=== PATIENT | female | born 1940 | race Caucasian/White ===

== ENCOUNTER 2016-07-02 11:40 | Inpatient (IN) | payer MEDICARE ==
[2016-07-02 12:55] LABS: Hematocrit 40 % (35-47); Mean Corpuscular HGB Conc 33 g/dl (31-36); Mean Corpuscular Hemoglobin 30 pg (27-31); Mean Corpuscular Volume 92 fL (80-97); Mean Platelet Volume 8 um3 (7.4-10.4); Red Blood Count 4.32 10^6/ul (4.0-5.4); Red Cell Distribution Width 15 % (10.5-15); White Blood Count 5.8 10^3/ul (3.5-10.8)
--- NOTE | 2016-07-02 12:58 | RAD ---
HISTORY: Aspiration COMPARISONS: July 28, 2015 VIEWS: 2: Frontal dual-energy and lateral views of the chest. FINDINGS: CARDIOMEDIASTINAL SILHOUETTE: The cardiomediastinal silhouette is normal. NICHOLAS: The nicholas are normal. PLEURA: The costophrenic angles are sharp. No pleural abnormalities are noted. LUNG PARENCHYMA: There is minimal linear opacification of the left lung base ABDOMEN: The upper abdomen is clear. There is no subphrenic gas. BONES AND SOFT TISSUES: No bone or soft tissue abnormalities are noted. OTHER: None. IMPRESSION: MINIMAL LINEAR ATELECTASIS VERSUS PLEUROPARENCHYMAL SCARRING OF THE LEFT LUNG BASE.
[2016-07-02 13:13] LABS: BUN/Creatinine Ratio 20.3 (8-20); Calcium 10.6 mg/dL (8.6-10.3); EGFR African American 47.9 (>60); EGFR Non-African American 37.3 (>60); Potassium 4.4 mmol/L (3.5-5.0)
--- NOTE | 2016-07-02 14:26 | ED ---
GI/ HPI - HPI Summary HPI Summary: Patient presents for delayed evaluation of dysphagia. She had a scheduled botox injection for torticollis 2 weeks ago, but since then has been having difficulty swallowing solids and liquids. She has had inability to swallow solids since the day of injection - History of Current Complaint Chief Complaint: EDGeneral Time Seen by Provider: 07/02/16 11:56 Stated Complaint: UNABLE TO SWALLOW/SPEAK Hx Obtained From: Patient, Family/Center Director Lead Teacher - Onset/Duration: Started Weeks Ago Timing: Constant Severity: Mild Current Severity: Mild Pain Intensity: 0 - Allergy/Home Medications Allergies/Adverse Reactions: Allergies Allergy/AdvReac Type Severity Reaction Status Date / Time Sulfa Drugs Allergy Severe Hives Verified 11/02/13 06:28 Latex Allergy Rash Verified 11/02/13 06:28 Metoprolol Allergy extreme Verified 11/02/13 06:28 fatigue ENVIRONMENTAL Allergy Unknown Uncoded 11/02/13 06:28 Reaction Details PMH/Surg Hx/FS Hx/Imm Hx Endocrine/Hematology History: Reports: Hx Diabetes - TYPE 2, Hx Anemia - NOT BEING TREATED Denies: Hx Thyroid Disease Cardiovascular History: Reports: Hx Coronary Artery Disease - new onset 70% blockage 01/2013, Hx Hypercholesterolemia, Hx Hypertension, Hx Peripheral Vascular Disease Denies: Other Cardiovascular Problems/Disorders Respiratory History: Reports: Hx Asthma, Hx Chronic Obstructive Pulmonary Disease (COPD), Hx Seasonal Allergies, Hx Sleep Apnea GI History: Reports: Hx Gastroesophageal Reflux Disease - CONTROL WITH DIET, Hx Hiatal Hernia - MANY YEARS AGO, Other GI Disorders - HISTORY OF DIVERTICULITIS, NO PROBLEMS Denies: Hx Ulcer Musculoskeletal History: Reports: Hx Arthritis - GENERALIZED, Hx Bursitis - SHOULDERS, Hx Osteoporosis, Hx Tendonitis - HX IN BILATERAL ELBOWS, YEARS AGO Sensory History: Reports: Hx Cataracts - HENOK SURGERYS, Hx Contacts or Glasses - READING GLASSES Denies: Hx Hearing Aid Opthamlomology History: Reports: Hx Cataracts - HENOK SURGERYS, Hx Contacts or Glasses - READING GLASSES Neurological History: Reports: Hx Nerve Disease - NEUROPATHY Denies: Other Neuro Impairments/Disorders Psychiatric History: Reports: Hx Anxiety - 1999, OK NOW, Hx Depression - 2002 - NO PROBLEMS SINCE - Cancer History Hx Chemotherapy: No Hx Radiation Therapy: No - Surgical History Surgery Procedure, Year, and Place: 1989Hammer Toe Surgery Right Foot 1997 ; Right Knee Surgery, 2010, [facility]; Fractured Left Shoulder, 1988 ; Hysterectomy, 1993 ; Breast ReductioN, 1985; Right Knee ArthroscopyX2, 1993, [place] [facility] [place] surgery [place] 29 2013 lid reduction.; Right Endartarectomy 2004, [place] ; VaricoseVein Surgery Right Leg 2006, [place];TOTAL RIGHT KNEE, 2010[facility] [place] Right TKR, [facility] [place] Hx Anesthesia Reactions: Yes - HARD TO WAKE UP Infectious Disease History: No Infectious Disease History: Denies: Hx Clostridium Difficile, Hx Hepatitis, Hx Human Immunodeficiency Virus (HIV), Hx of Known/Suspected MRSA, Hx Shingles, Hx Tuberculosis, Hx Known/ Suspected VRE, Hx Known/Suspected VRSA, History Other Infectious Disease, Traveled Outside the [place] in Last 30 Days - Social History Alcohol Use: None Substance Use Type: Reports: None Smoking Status (MU): Unknown if Ever Smoked Review of Systems All Other Systems Reviewed And Are Negative: Yes Physical Exam Vital Signs On Initial Exam: Initial Vitals Temp Pulse Resp BP Pulse Ox 98.8 F 76 16 142/57 99 07/02/16 11:43 07/02/16 11:43 07/02/16 11:43 07/02/16 11:43 07/02/16 11:43 - [place] Coma Scale Coma Scale Total: 15 Diagnostics - Vital Signs Vital Signs Temp Pulse Resp BP Pulse Ox 07/02/16 11:43 98.8 F 76 16 142/57 99 - Laboratory Lab Results: Lab Results 07/02/16 07/02/16 Range/Units 12:15 12:15 WBC 5.8 (3.5-10.8) 10^3/ul RBC 4.32 (4.0-5.4) 10^6/ul Hgb 13.0 (12.0-16.0) g/dl Hct 40 (35-47) % MCV 92 (80-97) fL MCH 30 (27-31) pg MCHC 33 (31-36) g/dl RDW 15 (10.5-15) % Plt Count 156 (150-450) 10^3/ul MPV 8 (7.4-10.4) um3 Sodium 138 (133-145) mmol/L Potassium 4.4 (3.5-5.0) mmol/L Chloride 104 (101-111) mmol/L Carbon Dioxide 24 (22-32) mmol/L Anion Gap 10 (2-11) mmol/L BUN 28 H (6-24) mg/dL Creatinine 1.38 H (0.51-0.95) mg/dL Est GFR ( Amer) 47.9 (>60) Est GFR (Non-Af Amer) 37.3 (>60) BUN/Creatinine Ratio 20.3 H (8-20) Glucose 125 H (70-100) mg/dL Calcium 10.6 H (8.6-10.3) mg/dL Result Diagrams: 07/02/16 12:15 07/02/16 12:15 Lab Statement: Any lab studies that have been ordered have been reviewed, and results considered in the medical decision making process. GIGU Course/Dx - Diagnoses Provider Diagnoses: DYSPHAGIA SECONDARY TO BOTOX Discharge - Discharge Plan Condition: Fair Disposition: ADMITTED TO [facility]
[2016-07-02] MEDS ORDERED: Albuterol HFA INHALER* 8 gm MDI INH PRN (15:53)
[2016-07-02] MEDS ORDERED: Dextrose 50% Syringe 50 ML* 25 GM/50 ML SYRINGE IV PUSH PRN (15:54)
[2016-07-02] MEDS: NS 0.9% 1000 ML* 1,000 ML IV SCH (18:21)
--- NOTE | 2016-07-02 18:33 | PN ---
Progress Note - Progress Note Note: Ms. Kimball is very reticent to have a NG tube placed. Plan to assess swallow function in AM. If patient able to tolerate adequately to maintain nutrition and hydration may be able to avoid feeding tube. Nutrition consult also placed.
--- NOTE | 2016-07-02 20:32 | HP ---
HISTORY AND PHYSICAL: DATE OF ADMISSION: 07/02/16 PRIMARY CARE PHYSICIAN: Dr. New. PROVIDER: Dr. Jose Ratliff, . ATTENDING PHYSICIAN: Jasmin Hernandez MD *(dictation provided by Ramonita Simon NP) CHIEF COMPLAINT: Difficulty swallowing. HISTORY OF PRESENT ILLNESS: Ms. Kimball is a 76-year-old female with past medical history of dystonia with frequent Botox injections with complications of mild symptoms of difficulty swallowing who presents today to the hospital with concern for significant difficulty swallowing and unable to tolerate solid foods. The patient also has a history of diabetes, hypertension, and asthma. She states that she had her last Botox injection with Dr. Ratliff in [place] ( phone number ) on 06/21/16. She has been having difficulty swallowing for over a week. She is still able to swallow liquids but when she tries to swallow solids, she chokes and has severe coughing and retching spells. She has been able to drink some nutritional supplements over the past couple of days. Family spoke with Dr. Ratliff or her medical assistant on Saturday and they recommended that she wait to see how the things would unfold but were recommended to come to the emergency room if it did not improve quickly. They spoke again with Dr. Ratliff' office today and were recommended to come to the emergency room for evaluation. The patient denies any other complaints including chest pain, shortness of breath, nausea, or abdominal pain. In the emergency room, Ms. Kimball has a creatinine, which is mildly elevated from baseline. She has stable vital signs, but based on her difficulty swallowing and concern for dehydration and need for supplemental nutrition, Hospital Medicine was called regarding admission. PAST MEDICAL HISTORY: 1. Dystonia with multiple Botox injections. 2. History of difficulty swallowing secondary to Botox, which has been mild. 3. Type 2 diabetes, non-insulin dependent. 4. Hypertension. 5. Asthma. 6. History of carotid artery endarterectomy. 7. Hyperlipidemia. PAST SURGICAL HISTORY: 1. Reduction mammoplasty, 1985. 2. Hysterectomy partial, 1993. 3. Arthroscopic knee surgery, 1993 and February 2006. 4. Fractured left humerus, 1988. 5. Hammertoe right second toe December,. 6. Endarterectomy right, May 2004. 7. Varicose vein surgery, May 2006. 8. Cataract removal bilaterally in August and September 2010 as well as LASIK and laser procedures. 9. Right total knee replacement, January 2011. 10. Trigger finger surgery right hand, July 2012. 11. Bilateral upper blepharoplasty repair, June 2013. MEDICATIONS: 1. Diclofenac 50 mg p.o. daily. 2. Isosorbide ER 90 mg p.o. daily. 3. Multivitamin mineral 1 tablet p.o. daily. 4. Nitroglycerin p.r.n. 5. Sitagliptin 100 mg p.o. q.a.m. 6. Albuterol 2 puffs inhale q.4 hours p.r.n. 7. Aspirin 81 mg p.o. daily. 8. Atenolol 25 mg p.o. every other day. 9. Oxybutynin 10 mg p.o. at bedtime. ALLERGIES: SULFA, LATEX, METOPROLOL. FAMILY HISTORY: The patient reports her mother had multiple strokes, related to heart attack at age 67. Father had cancer of blood, at age 87. REVIEW OF SYSTEMS: A 14-point review of systems completed with Ms. Kimball and all those not mentioned above were negative. PHYSICAL EXAMINATION GENERAL: Ms. Kimball is sitting up in the bed. She is in no acute distress. VITAL SIGNS: Temperature 98.8, heart rate 74, respiratory rate 16, O2 saturation is 97% on room air, blood pressure 141/43. HEART: S1 and S2. No murmur, rubs, or gallop. Regular. LUNGS: Clear to auscultation bilaterally with no accessory muscle use and good aeration. ABDOMEN: Soft, nontender with bowel sounds positive x4. EXTREMITIES: No cyanosis or edema. SKIN: Intact. NEUROLOGIC: She is alert and oriented x3. She moves all extremities equally. There is no facial asymmetry or focal weakness. Extraocular movements are intact. LABORATORY DATA/DIAGNOSTIC STUDIES: Sodium 138, potassium 4.4, chloride 104, serum bicarb 24, BUN 28, creatinine 1.38, glucose 125. WBC 5.8, hemoglobin 13.0 , hematocrit 40, platelet count 156. Chest x-ray was read as follows: "Minimal linear atelectasis versus pleural parenchymal scarring of the left lung base." ASSESSMENT: Ms. Kimball is a 76-year-old female with a past medical history of dystonia with multiple Botox injections in the past with ongoing mild symptoms of dysphagia, who presents to the hospital with concern for severe dysphagia and inability to tolerate solid oral intake as well as weight loss. In addition , she has a history of diabetes and hypertension and asthma. PLAN: Plans are for inpatient admission as I expect the length of stay to be greater than 2 days for the following. 1. Dysphagia. I did review the case with Dr. Ratliff' medical assistant over the phone. The medical assistant read a note from Dr. Ratliff, which stated that she would recommend that the patient be admitted to the hospital and started on intravenous fluids and supplemental nutrition through a feeding tube. A feeding tube will be placed. I have asked the clamp operator to provide nutrition supplement recommendations. I have also spoken with Speech Therapy and they will be seeing the patient tomorrow and intermittently to assess swallow function. 2. Type 2 diabetes. The patient had blood glucoses q.a.c. with Lispro sliding scale insulin. We will hold her Januvia. 3. Hypertension. Continue atenolol. We will hold isosorbide as it is an extended release tab, we can add other non-extended tablet or other agent as needed if her blood pressure is elevated. It is currently well controlled. 4. DVT prophylaxis with heparin subcu. 5. Disposition to medical floor. TIME SPENT: Approximately 60 minutes was spent on admission of this patient; more than half time spent with her at the bedside reviewing the events leading up to this hospitalization, performing the physical examination, and reviewing the plan of care. RAMONITA SIMON NP CC: Dr. New; Dr. Jose Ratliff, * [id number]/[facility] #: [id number] [facility]ENT[facility]st[facility]
[2016-07-02] MEDS: Insulin LISPRO* 1 UNITS UNIT SUBCUT SCH (20:58)
[2016-07-02] MEDS ORDERED: Oxybutynin TAB* 5 MG PO SCH (21:00)
[2016-07-02] MEDS ORDERED: Aspirin EC Low Dose* 81 MG TAB.EC ONE (22:27)
[2016-07-02] MEDS: Aspirin EC Low Dose* 81 MG TAB.EC PO SCH (22:33)
[2016-07-02] MEDS: Heparin VIAL(*) 5000 UNITS/ML VIAL (FIVE THOUSAND) SUBCUT SCH (23:12)
[2016-07-02] MEDS ORDERED: Atenolol TAB* 25 MG ONE (23:33)
[2016-07-03] MEDS: FLUTICASONE 100 MCG INH SCH ×2 (00:01→10:20)
[2016-07-03] MEDS: NS 0.9% 1000 ML* 1,000 ML IV SCH (04:58)
[2016-07-03 05:32] LABS: BUN/Creatinine Ratio 19.3 (8-20); Calcium 9.8 mg/dL (8.6-10.3); EGFR African American 62.9 (>60); EGFR Non-African American 48.9 (>60); Potassium 4.1 mmol/L (3.5-5.0)
[2016-07-03] MEDS: Heparin VIAL(*) 5000 UNITS/ML VIAL (FIVE THOUSAND) SUBCUT SCH ×3 (06:05→23:04)
[2016-07-03] MEDS: Insulin LISPRO* 1 UNITS UNIT SUBCUT SCH ×2 (07:41→11:45)
[2016-07-03] MEDS ORDERED: Canagliflozin (NF) 100 MG TAB PO SCH (09:00)
[2016-07-03] MEDS ORDERED: ROSUVASTATIN 20 MG PO SCH (09:00)
[2016-07-03] MEDS ORDERED: Losartan TAB* 25 MG PO SCH (09:00)
[2016-07-03] MEDS ORDERED: Losartan TAB* 25 MG ONE (10:12)
[2016-07-03] MEDS ORDERED: PTO: Canagliflozin (NF) 100 MG TAB PO SCH (13:00)
--- NOTE | 2016-07-03 15:19 | RAD ---
HISTORY: Dysphagia COMPARISONS: None TECHNIQUE: A videofluoroscopic evaluation of swallow was performed in conjunction with speech therapy. Barium laced foods and liquids of varying consistency were administered under fluoroscopic observation. Total fluoroscopy time is 2.1 minutes. FINDINGS: ORAL PHASE: There is normal transfer and initiation PHARYNGEAL PHASE: There is normal elevation; however, there is incomplete relaxation of the cricopharyngeus with pooling of contrast in the hypopharynx. There is transient penetration without appreciable aspiration ASPIRATION/PENETRATION: As noted above, there is penetration without aspiration OTHER FINDINGS: None. IMPRESSION: INCOMPLETE RELAXATION OF THE CRICOPHARYNGEUS WITH POOLING OF CONTRAST IN THE HYPOPHARYNX LEADING TO PENETRATION WITHOUT ASPIRATION. PLEASE SEE THE SPEECH THERAPIST REPORT FOR FURTHER INFORMATION CPT II Codes: 6045F
[2016-07-03] MEDS ORDERED: Insulin LISPRO* 1 UNITS UNIT SUBCUT SCH ×2 (16:00→18:00)
--- NOTE | 2016-07-03 16:02 | PN ---
Subjective Date of Service: 07/03/16 Interval History: Pt is feeling ok. She continues to have intermittent difficulty swallowing. She did ok with thin liquids per her interpretation. She denies any pain. No SOB. Objective Active Medications: Albuterol (Ventolin Hfa Inhaler*) 2 puff INH Q4H PRN PRN Reason: DYSPNEA Aspirin (Aspirin Ec Low Dose*) 81 mg PO BEDTIME [facility] Last Admin: 07/02/16 22:33 Dose: 81 mg Dextrose (D50w Syringe 50 Ml*) 12.5 gm IV PUSH .FOR FS < 60 - SS PRN PRN Reason: FS < 60 Fluticasone Propionate (Flovent Diskus 100 Mcg(Nf)) 1 puff INH BID [facility] Last Admin: 07/03/16 10:20 Dose: 1 puff Heparin Sodium (Porcine) (Heparin Vial(*)) 5,000 units SUBCUT Q8HR [facility] Last Admin: 07/03/16 13:39 Dose: Not Given Dextrose/Sodium Chloride (D5w 1/2 Ns 1000 Ml Bag*) 1,000 mls @ 75 mls/hr IV PER RATE [facility] Insulin Human Lispro (Humalog*) 0 units SUBCUT Q6H [facility] PRN Reason: Protocol Vital Signs 07/02/16 07/02/16 07/02/16 16:54 19:15 20:21 Temperature 97.3 F 97.5 F Pulse Rate 68 66 Respiratory 16 16 14 Rate Blood Pressure 144/55 149/50 (mmHg) O2 Sat by Pulse 98 98 Oximetry 07/02/16 07/02/16 07/03/16 21:00 23:34 04:58 Temperature 97.6 F 98.1 F Pulse Rate 71 62 Respiratory 16 16 16 Rate Blood Pressure 138/53 145/59 (mmHg) O2 Sat by Pulse 98 97 Oximetry 07/03/16 07/03/16 07/03/16 07:12 08:00 09:56 Temperature 98.4 F 97.7 F Pulse Rate 64 61 Respiratory 18 18 16 Rate Blood Pressure 141/57 123/41 (mmHg) O2 Sat by Pulse 96 96 Oximetry Oxygen Devices in Use Now: None Appearance: Elderly female sitting on the edge of the bed, NAD Eyes: No Scleral Icterus Ears/Nose/Mouth/Throat: Mucous Membranes Moist, - - + hoarse voice Respiratory: Symmetrical Chest Expansion and Respiratory Effort, Clear to Auscultation Cardiovascular: NL Sounds; No Murmurs; No JVD, RRR, No Edema Abdominal: NL Sounds; No Tenderness; No Distention Extremities: No Clubbing, Cyanosis Skin: No Rash or Ulcers, No Nodules or Sclerosis Neurological: Alert and Oriented x 3 Result Diagrams: 07/02/16 12:15 07/03/16 04:50 Additional Lab and Data: Lab Results 07/02/16 07/02/16 Range/Units 12:15 12:15 WBC 5.8 (3.5-10.8) 10^3/ul RBC 4.32 (4.0-5.4) 10^6/ul Hgb 13.0 (12.0-16.0) g/dl Hct 40 (35-47) % MCV 92 (80-97) fL MCH 30 (27-31) pg MCHC 33 (31-36) g/dl RDW 15 (10.5-15) % Plt Count 156 (150-450) 10^3/ul MPV 8 (7.4-10.4) um3 Sodium 138 (133-145) mmol/L Potassium 4.4 (3.5-5.0) mmol/L Chloride 104 (101-111) mmol/L Carbon Dioxide 24 (22-32) mmol/L Anion Gap 10 (2-11) mmol/L BUN 28 H (6-24) mg/dL Creatinine 1.38 H (0.51-0.95) mg/dL Est GFR ( Amer) 47.9 (>60) Est GFR (Non-Af Amer) 37.3 (>60) BUN/Creatinine Ratio 20.3 H (8-20) Glucose 125 H (70-100) mg/dL Calcium 10.6 H (8.6-10.3) mg/dL Assess/Plan/Problems-Billing Ms Kimball is a 76 yo F who has a h/o cervical dystonia for 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 - Patient Problems (1) Dysphagia Current Visit: Yes Status: Acute Code(s): R13.10 - DYSPHAGIA, UNSPECIFIED SNOMED Code(s): 05465803 Comment: Secondary to botox injection. She states she frequently gets a milder form of this complication but this is the worst it has been. On video fluoroscopic swallow the patient has pooling of thin liquids and purees with occasionally penetration into the airway. Will make the patient NPO for now. Will likely reassess her swallow function in 2 days. For now continue IVF-start D5 1/2 NS at 75ml/hr. Will hold off on feeding tube for now but if she has no improvement in the next 1-[address] an NG tube. (2) Hoarseness of voice Current Visit: Yes Status: Acute Comment: Likely secondary to botox injection. If no improvement in the next few days will ask for ENT evaluation. (3) Type II diabetes mellitus Current Visit: Yes Status: Acute Comment: Sugars have been under excellent control. Will stop oral meds as she is now NPO and continue with a lispro sliding scale. (4) HTN (hypertension) Current Visit: Yes Status: Acute Code(s): I10 - ESSENTIAL (PRIMARY) HYPERTENSION SNOMED Code(s): 44975063 Comment: BP is under good control. Continue to monitor off her usual medications as she is NPO. (5) DVT prophylaxis Current Visit: Yes Status: Acute Code(s): NEW9738 - SNOMED Code(s): 645278727 Comment: SQ heparin (6) Full code status Current Visit: Yes Status: Acute Code(s): Z78.9 - OTHER SPECIFIED HEALTH STATUS SNOMED Code(s): 262764767
[2016-07-03] MEDS ORDERED: Dextrose 50% Syringe 50 ML* 25 GM/50 ML SYRINGE IV PUSH PRN (19:21)
[2016-07-03] MEDS: D5W 1/2 NS 1000 ML BAG* 1,000 ML IV SCH (19:56)
[2016-07-03] MEDS: Aspirin EC Low Dose* 81 MG TAB.EC PO SCH (19:56)
[2016-07-04] MEDS: FLUTICASONE 100 MCG INH SCH ×3 (02:07→21:19)
[2016-07-04] MEDS: Insulin LISPRO* 1 UNITS UNIT SUBCUT SCH ×3 (02:07→20:48)
[2016-07-04] MEDS: Heparin VIAL(*) 5000 UNITS/ML VIAL (FIVE THOUSAND) SUBCUT SCH ×3 (06:13→21:19)
[2016-07-04] MEDS ORDERED: Atenolol TAB* 25 MG PO SCH (09:00)
--- NOTE | 2016-07-04 10:26 | PN ---
Subjective Date of Service: 07/04/16 Interval History: Pt is feeling well. She states she thinks her voice is improved some today. She has not tried swallowing anything since yesterday. She noted that she had some blood when she blew her nose and she coughed up some mucous with a scant amount of blood in it. Objective Active Medications: Albuterol (Ventolin Hfa Inhaler*) 2 puff INH Q4H PRN PRN Reason: DYSPNEA Dextrose (D50w Syringe 50 Ml*) 12.5 gm IV PUSH .FOR FS < 60 - SS PRN PRN Reason: FS < 60 Fluticasone Propionate (Flovent Diskus 100 Mcg(Nf)) 1 puff INH BID [facility] Last Admin: 07/04/16 09:41 Dose: 1 puff Heparin Sodium (Porcine) (Heparin Vial(*)) 5,000 units SUBCUT Q8HR [facility] Last Admin: 07/04/16 06:13 Dose: Not Given Dextrose/Sodium Chloride (D5w 1/2 Ns 1000 Ml Bag*) 1,000 mls @ 75 mls/hr IV PER RATE [facility] Last Admin: 07/03/16 19:56 Dose: 75 mls/hr Insulin Human Lispro (Humalog*) 0 units SUBCUT Q6HR [facility] PRN Reason: Protocol Last Admin: 07/04/16 06:13 Dose: Not Given Vital Signs 07/03/16 07/03/16 07/03/16 15:30 20:00 23:40 Temperature 97.8 F 97.4 F Pulse Rate 59 63 Respiratory 16 18 18 Rate Blood Pressure 148/53 147/50 (mmHg) O2 Sat by Pulse 97 97 Oximetry 07/04/16 07:28 Temperature 97.9 F Pulse Rate 62 Respiratory 18 Rate Blood Pressure 145/53 (mmHg) O2 Sat by Pulse 95 Oximetry Oxygen Devices in Use Now: None Appearance: Elderly female sitting on the edge of the bed, NAD Eyes: No Scleral Icterus Ears/Nose/Mouth/Throat: Mucous Membranes Moist, - - voice remains hoarse but perhaps slightly better Respiratory: Symmetrical Chest Expansion and Respiratory Effort, Clear to Auscultation Cardiovascular: NL Sounds; No Murmurs; No JVD, RRR, No Edema Abdominal: NL Sounds; No Tenderness; No Distention Extremities: No Clubbing, Cyanosis Skin: No Rash or Ulcers, No Nodules or Sclerosis Neurological: Alert and Oriented x 3 Result Diagrams: 07/02/16 12:15 07/03/16 04:50 Additional Lab and Data: Lab Results 07/02/16 07/02/16 Range/Units 12:15 12:15 WBC 5.8 (3.5-10.8) 10^3/ul RBC 4.32 (4.0-5.4) 10^6/ul Hgb 13.0 (12.0-16.0) g/dl Hct 40 (35-47) % MCV 92 (80-97) fL MCH 30 (27-31) pg MCHC 33 (31-36) g/dl RDW 15 (10.5-15) % Plt Count 156 (150-450) 10^3/ul MPV 8 (7.4-10.4) um3 Sodium 138 (133-145) mmol/L Potassium 4.4 (3.5-5.0) mmol/L Chloride 104 (101-111) mmol/L Carbon Dioxide 24 (22-32) mmol/L Anion Gap 10 (2-11) mmol/L BUN 28 H (6-24) mg/dL Creatinine 1.38 H (0.51-0.95) mg/dL Est GFR ( Amer) 47.9 (>60) Est GFR (Non-Af Amer) 37.3 (>60) BUN/Creatinine Ratio 20.3 H (8-20) Glucose 125 H (70-100) mg/dL Calcium 10.6 H (8.6-10.3) mg/dL Assess/Plan/Problems-Billing Ms Kimball is a 76 yo F who has a h/o cervical dystonia for 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 - Patient Problems (1) Dysphagia Current Visit: Yes Status: Acute Code(s): R13.10 - DYSPHAGIA, UNSPECIFIED SNOMED Code(s): 14049079 Comment: Secondary to botox injection. She has not tried swallowing anything recently. Plan for repeat video fluoroscopic swallow study tomorrow. Continue D5 1/2NS. If no improvement on her swallow function test tomorrow will discuss placing NG tube vs possibly TPN. (2) Hoarseness of voice Current Visit: Yes Status: Acute Comment: Likely secondary to botox injection. Pt believes her voice quality has improved some. Will continue to monitor and if no further improvement will ask for ENT eval tomorrow. (3) Type II diabetes mellitus Current Visit: Yes Status: Acute Comment: Sugars have been under excellent control despite being on D5 1/2NS. Will change finger sticks to q12hr. (4) HTN (hypertension) Current Visit: Yes Status: Acute Code(s): I10 - ESSENTIAL (PRIMARY) HYPERTENSION SNOMED Code(s): 16492954 Comment: BP is mildly elevated off her usual medications. Continue to follow. (5) DVT prophylaxis Current Visit: Yes Status: Acute Code(s): WFD5814 - SNOMED Code(s): 917696257 Comment: SQ heparin (6) Full code status Current Visit: Yes Status: Acute Code(s): Z78.9 - OTHER SPECIFIED HEALTH STATUS SNOMED Code(s): 837758735
[2016-07-04] MEDS: D5W 1/2 NS 1000 ML BAG* 1,000 ML IV SCH (11:27)
[2016-07-05] MEDS: D5W 1/2 NS 1000 ML BAG* 1,000 ML IV SCH ×2 (03:00→20:55)
[2016-07-05] MEDS: Heparin VIAL(*) 5000 UNITS/ML VIAL (FIVE THOUSAND) SUBCUT SCH ×3 (05:13→21:04)
[2016-07-05] MEDS: FLUTICASONE 100 MCG INH SCH (08:40)
[2016-07-05] MEDS: Insulin LISPRO* 1 UNITS UNIT SUBCUT SCH ×2 (08:43→21:01)
--- NOTE | 2016-07-05 13:35 | RAD ---
HISTORY: Aspiration, dysphagia, follow-up COMPARISONS: July 03, 2015 TECHNIQUE: A videofluoroscopic evaluation of swallow was performed in conjunction with speech therapy. Barium laced foods and liquids of varying consistency were administered under fluoroscopic observation. Total fluoroscopy time is 0.3 minutes. FINDINGS: ORAL PHASE: There is normal transfer in initiation. PHARYNGEAL PHASE: As noted on the previous examination, there is incomplete relaxation of the cricopharyngeus with pooling of contrast in the hypopharynx. On the current examination, there is aspiration from the nipple residual in the hypopharynx ASPIRATION/PENETRATION: As noted above, there is aspiration from the pooled residual in the hypopharynx. OTHER FINDINGS: None. IMPRESSION: AGAIN NOTED IS INCOMPLETE RELAXATION OF THE CRICOPHARYNGEUS, WITH ASPIRATION OF POOLED RESIDUAL IN THE HYPOPHARYNX.. PLEASE SEE THE SPEECH THERAPIST REPORT FOR FURTHER INFORMATION CPT II Codes: 6045F
--- NOTE | 2016-07-05 15:11 | PN ---
Subjective Date of Service: 07/05/16 Interval History: Pt is feeling well but states she knew she failed the swallow eval today. She states she coughed up some yellowish sputum this AM but nothing since. She continues to have mild blood when she blows her nose. Objective Active Medications: Albuterol (Ventolin Hfa Inhaler*) 2 puff INH Q4H PRN PRN Reason: DYSPNEA Aspirin (Aspirin Low Dose Tab*) 81 mg NG TUBE DAILY [facility] Atenolol (Tenormin Tab*) 25 mg NG TUBE EVERY OTHER DAY [facility] Atorvastatin Calcium (Lipitor*) 20 mg NG TUBE 2100 [facility] Dextrose (D50w Syringe 50 Ml*) 12.5 gm IV PUSH .FOR FS < 60 - SS PRN PRN Reason: FS < 60 Fluticasone Propionate (Flovent Diskus 100 Mcg(Nf)) 1 puff INH BID [facility] Last Admin: 07/05/16 08:40 Dose: 1 puff Heparin Sodium (Porcine) (Heparin Vial(*)) 5,000 units SUBCUT Q8HR [facility] Last Admin: 07/05/16 13:31 Dose: Not Given Dextrose/Sodium Chloride (D5w 1/2 Ns 1000 Ml Bag*) 1,000 mls @ 75 mls/hr IV PER RATE [facility] Last Admin: 07/05/16 03:00 Dose: 75 mls/hr Insulin Human Lispro (Humalog*) 0 units SUBCUT BID [facility] PRN Reason: Protocol Last Admin: 07/05/16 08:43 Dose: Not Given Losartan Potassium (Cozaar Tab*) 12.5 mg NG TUBE DAILY [facility] Oxybutynin Chloride (Ditropan Tab*) 10 mg NG TUBE BEDTIME [facility] Phenol/Menthol (Chloroseptic Throat [place]*) 4 spray MT Q4H PRN PRN Reason: SORE THROAT Vital Signs 07/04/16 07/04/16 07/04/16 15:25 20:19 23:26 Temperature 97.6 F 98.1 F Pulse Rate 68 64 Respiratory 16 18 18 Rate Blood Pressure 138/72 146/61 (mmHg) O2 Sat by Pulse 98 98 Oximetry 07/05/16 07/05/16 07:17 08:00 Temperature 97.9 F Pulse Rate 67 Respiratory 16 18 Rate Blood Pressure 148/67 (mmHg) O2 Sat by Pulse 95 Oximetry Oxygen Devices in Use Now: None Appearance: Elderly female sitting up on the edge of the bed, NAD Eyes: No Scleral Icterus Ears/Nose/Mouth/Throat: Mucous Membranes Moist Respiratory: Symmetrical Chest Expansion and Respiratory Effort, Clear to Auscultation Cardiovascular: NL Sounds; No Murmurs; No JVD, RRR, No Edema Abdominal: NL Sounds; No Tenderness; No Distention Extremities: No Clubbing, Cyanosis Skin: No Rash or Ulcers, No Nodules or Sclerosis Neurological: Alert and Oriented x 3 Result Diagrams: 07/02/16 12:15 07/03/16 04:50 Additional Lab and Data: Lab Results 07/02/16 07/02/16 Range/Units 12:15 12:15 WBC 5.8 (3.5-10.8) 10^3/ul RBC 4.32 (4.0-5.4) 10^6/ul Hgb 13.0 (12.0-16.0) g/dl Hct 40 (35-47) % MCV 92 (80-97) fL MCH 30 (27-31) pg MCHC 33 (31-36) g/dl RDW 15 (10.5-15) % Plt Count 156 (150-450) 10^3/ul MPV 8 (7.4-10.4) um3 Sodium 138 (133-145) mmol/L Potassium 4.4 (3.5-5.0) mmol/L Chloride 104 (101-111) mmol/L Carbon Dioxide 24 (22-32) mmol/L Anion Gap 10 (2-11) mmol/L BUN 28 H (6-24) mg/dL Creatinine 1.38 H (0.51-0.95) mg/dL Est GFR ( Amer) 47.9 (>60) Est GFR (Non-Af Amer) 37.3 (>60) BUN/Creatinine Ratio 20.3 H (8-20) Glucose 125 H (70-100) mg/dL Calcium 10.6 H (8.6-10.3) mg/dL Assess/Plan/Problems-Billing Ms Kimball is a 76 yo F who has a h/o cervical dystonia for 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 - Patient Problems (1) Dysphagia Current Visit: Yes Status: Acute Code(s): R13.10 - DYSPHAGIA, UNSPECIFIED SNOMED Code(s): 55282816 Comment: Secondary to botox injection. She failed the swallow again today. No improvement at all today. I have placed NG tube so she can receive nutrition. I have ordered glucerna to start at 20ml/hr. Will touch base with ENT. (2) Hoarseness of voice Current Visit: Yes Status: Acute Comment: Likely secondary to botox injection. Pt's voice quality is improved today but not completely normal. Will touch base with ENT. (3) Type II diabetes mellitus Current Visit: Yes Status: Acute Comment: Sugars are under good control. Continue lispro Q12hr for elevated sugars. Will need to monitor closely while she is on glucerna. (4) HTN (hypertension) Current Visit: Yes Status: Acute Code(s): I10 - ESSENTIAL (PRIMARY) HYPERTENSION SNOMED Code(s): 82356000 Comment: Resume home medications that can go through the NG tube. (5) DVT prophylaxis Current Visit: Yes Status: Acute Code(s): CRC8285 - SNOMED Code(s): 002770865 Comment: SQ heparin (pt has been refusing but she is up and ambulating). (6) Full code status Current Visit: Yes Status: Acute Code(s): Z78.9 - OTHER SPECIFIED HEALTH STATUS SNOMED Code(s): 625985553
--- NOTE | 2016-07-05 15:26 | RAD ---
Indication: Cardiovascular disease, chronic obstructive pulmonary disease. Dysphagia. Comparison: July 02, 2016 Technique: Upright AP 1436 hours Report: Nasogastric tube tip at level of gastric body directed distal. Clear lungs and pleural spaces. The heart, pulmonary vasculature, and mediastinal contours are unremarkable. IMPRESSION: Nasogastric tube tip at level of gastric body directed distal.
[2016-07-05] MEDS: Aspirin Low Dose CHEW TAB* 81 MG NG TUBE SCH (16:28)
[2016-07-05] MEDS: LOSARTAN 25 MG NG TUBE SCH (16:28)
[2016-07-05] MEDS ORDERED: OXYBUTYNIN 5 MG NG TUBE SCH (21:00)
[2016-07-05] MEDS: Atorvastatin* 20 MG TAB NG TUBE SCH (21:33)
[2016-07-05] MEDS ORDERED: Ondansetron INJ* 2 MG/ML VIAL IV PRN (21:47)
[2016-07-06] MEDS: Heparin VIAL(*) 5000 UNITS/ML VIAL (FIVE THOUSAND) SUBCUT SCH ×3 (05:44→21:29)
[2016-07-06] MEDS: FLUTICASONE 100 MCG INH SCH ×2 (05:44→10:37)
[2016-07-06 06:40] LABS: BUN/Creatinine Ratio 11.4 (8-20); Calcium 10.1 mg/dL (8.6-10.3); EGFR African American 65.7 (>60); EGFR Non-African American 51.1 (>60)
[2016-07-06 07:24] LABS: Potassium 3.8 mmol/L (3.5-5.0)
--- NOTE | 2016-07-06 07:24 | PN ---
Subjective Date of Service: 07/06/16 Interval History: Pt is feeling ok. She states last night she had a wave of nausea and thought she was going to vomit but she didn't. She notes that her nose has been "dripping" quite a bit. She denies any pain associated with the NG tube. Objective Active Medications: Albuterol (Ventolin Hfa Inhaler*) 2 puff INH Q4H PRN PRN Reason: DYSPNEA Aspirin (Aspirin Low Dose Tab*) 81 mg NG TUBE DAILY [facility] Last Admin: 07/05/16 16:28 Dose: 81 mg Atenolol (Tenormin Tab*) 25 mg NG TUBE EVERY OTHER DAY [facility] Atorvastatin Calcium (Lipitor*) 20 mg NG TUBE 2100 [facility] Last Admin: 07/05/16 21:33 Dose: 20 mg Dextrose (D50w Syringe 50 Ml*) 12.5 gm IV PUSH .FOR FS < 60 - SS PRN PRN Reason: FS < 60 Fluticasone Propionate (Flovent Diskus 100 Mcg(Nf)) 1 puff INH BID [facility] Last Admin: 07/06/16 05:44 Dose: Not Given Heparin Sodium (Porcine) (Heparin Vial(*)) 5,000 units SUBCUT Q8HR [facility] Last Admin: 07/06/16 05:44 Dose: Not Given Insulin Human Lispro (Humalog*) 0 units SUBCUT BID [facility] PRN Reason: Protocol Last Admin: 07/05/16 21:01 Dose: Not Given Losartan Potassium (Cozaar Tab*) 12.5 mg NG TUBE DAILY [facility] Last Admin: 07/05/16 16:28 Dose: 12.5 mg Ondansetron HCl (Zofran Inj*) 4 mg IV Q6H PRN PRN Reason: NAUSEA Oxybutynin Chloride (Ditropan Tab*) 10 mg NG TUBE BEDTIME [facility] Last Admin: 07/05/16 21:33 Dose: 10 mg Phenol/Menthol (Chloroseptic Throat [place]*) 4 spray MT Q4H PRN PRN Reason: SORE THROAT Vital Signs 07/05/16 07/05/16 07/05/16 08:00 13:45 20:00 Temperature 98.9 F Pulse Rate 65 Respiratory 18 15 16 Rate Blood Pressure 136/74 (mmHg) O2 Sat by Pulse 98 Oximetry 07/05/16 23:28 Temperature 97.9 F Pulse Rate 74 Respiratory 16 Rate Blood Pressure 143/55 (mmHg) O2 Sat by Pulse 97 Oximetry Oxygen Devices in Use Now: None Appearance: Elderly female sitting on the edge of the bed, NAD Eyes: No Scleral Icterus Ears/Nose/Mouth/Throat: Mucous Membranes Moist, - - NG tube in place Respiratory: Symmetrical Chest Expansion and Respiratory Effort, Clear to Auscultation Cardiovascular: NL Sounds; No Murmurs; No JVD, RRR, No Edema Abdominal: NL Sounds; No Tenderness; No Distention Extremities: No Clubbing, Cyanosis Skin: No Rash or Ulcers, No Nodules or Sclerosis Neurological: Alert and Oriented x 3 Result Diagrams: 07/02/16 12:15 07/06/16 05:24 Additional Lab and Data: Lab Results 07/02/16 07/02/16 Range/Units 12:15 12:15 WBC 5.8 (3.5-10.8) 10^3/ul RBC 4.32 (4.0-5.4) 10^6/ul Hgb 13.0 (12.0-16.0) g/dl Hct 40 (35-47) % MCV 92 (80-97) fL MCH 30 (27-31) pg MCHC 33 (31-36) g/dl RDW 15 (10.5-15) % Plt Count 156 (150-450) 10^3/ul MPV 8 (7.4-10.4) um3 Sodium 138 (133-145) mmol/L Potassium 4.4 (3.5-5.0) mmol/L Chloride 104 (101-111) mmol/L Carbon Dioxide 24 (22-32) mmol/L Anion Gap 10 (2-11) mmol/L BUN 28 H (6-24) mg/dL Creatinine 1.38 H (0.51-0.95) mg/dL Est GFR ( Amer) 47.9 (>60) Est GFR (Non-Af Amer) 37.3 (>60) BUN/Creatinine Ratio 20.3 H (8-20) Glucose 125 H (70-100) mg/dL Calcium 10.6 H (8.6-10.3) mg/dL Assess/Plan/Problems-Billing Ms Kimball is a 76 yo F who has a h/o cervical dystonia for 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 - Patient Problems (1) Dysphagia Current Visit: Yes Status: Acute Code(s): R13.10 - DYSPHAGIA, UNSPECIFIED SNOMED Code(s): 05702118 Comment: Secondary to botox injection. Continue tube feeding for now. Will likely need to re-evaluate her ability to swallow. If she is still unable to swallow will need to determine the next course of action to await the return of her swallow funciton. (2) Hoarseness of voice Current Visit: Yes Status: Acute Comment: Pt's voice quality is stable. I spoke with ENT who did not feel there was anything to do at this time other than wait out the effects of the botox. (3) Type II diabetes mellitus Current Visit: Yes Status: Acute Comment: Sugars are under good control. Continue lispro Q12hr for elevated sugars. Monitor closely while she is on glucerna. (4) HTN (hypertension) Current Visit: Yes Status: Acute Code(s): I10 - ESSENTIAL (PRIMARY) HYPERTENSION SNOMED Code(s): 57921344 Comment: BP is under fair control. Continue home medications through the NG tube. (5) DVT prophylaxis Current Visit: Yes Status: Acute Code(s): CVM0471 - SNOMED Code(s): 015549515 Comment: SQ heparin (pt has been refusing but she is up and ambulating). (6) Full code status Current Visit: Yes Status: Acute Code(s): Z78.9 - OTHER SPECIFIED HEALTH STATUS SNOMED Code(s): 260509856
[2016-07-06] MEDS: Insulin LISPRO* 1 UNITS UNIT SUBCUT SCH ×2 (10:12→21:29)
[2016-07-06] MEDS: LOSARTAN 25 MG NG TUBE SCH (11:40)
[2016-07-06] MEDS: ASPIRIN PO SCH (11:45)
[2016-07-06] MEDS: Aspirin Low Dose CHEW TAB* 81 MG NG TUBE SCH (11:46)
[2016-07-06] MEDS ORDERED: diPHENhydraMINE PO* 25 MG PO PRN (16:13)
[2016-07-06] MEDS: NON FORMULARY MED 1 DOSE DOSE PO SCH (21:43)
[2016-07-06] MEDS: Atorvastatin* 20 MG TAB NG TUBE SCH (21:45)
[2016-07-06] MEDS: Phenol 1.4% Spray* 177 ML BTL MT PRN (23:29)
[2016-07-07] MEDS: FLUTICASONE 100 MCG INH SCH ×3 (00:03→22:23)
[2016-07-07] MEDS: Heparin VIAL(*) 5000 UNITS/ML VIAL (FIVE THOUSAND) SUBCUT SCH ×2 (05:58→13:31)
--- NOTE | 2016-07-07 09:04 | PN ---
Subjective Date of Service: 07/07/16 Interval History: Pt is feeling well. She thinks she may be coming down with a cold. She still has quite a runny nose. She denies any pain. No SOB. Objective Active Medications: Albuterol (Ventolin Hfa Inhaler*) 2 puff INH Q4H PRN PRN Reason: DYSPNEA Aspirin (Aspirin Ec Low Dose*) 81 mg PO DAILY [facility] Last Admin: 07/06/16 11:45 Dose: 81 mg Atenolol (Tenormin Tab*) 25 mg NG TUBE EVERY OTHER DAY [facility] Canagliflozin (Invokana (Nf)) 100 mg PO DAILY [facility] Dextrose (D50w Syringe 50 Ml*) 12.5 gm IV PUSH .FOR FS < 60 - SS PRN PRN Reason: FS < 60 Diphenhydramine HCl (Benadryl Po*) 25 mg PO Q6H PRN PRN Reason: sneezing Last Admin: 07/06/16 16:52 Dose: 25 mg Fluticasone Propionate (Flovent Diskus 100 Mcg(Nf)) 1 puff INH BID [facility] Last Admin: 07/07/16 00:03 Dose: 1 puff Heparin Sodium (Porcine) (Heparin Vial(*)) 5,000 units SUBCUT Q8HR [facility] Last Admin: 07/07/16 05:58 Dose: Not Given Insulin Human Lispro (Humalog*) 0 units SUBCUT BID [facility] PRN Reason: Protocol Last Admin: 07/06/16 21:29 Dose: Not Given Losartan Potassium (Cozaar Tab*) 12.5 mg NG TUBE DAILY [facility] Last Admin: 07/06/16 11:40 Dose: 12.5 mg Non-Formulary Medication (Non Formulary Med(Nf)) 1 dose PO BEDTIME [facility] Last Admin: 07/06/16 21:43 Dose: 1 dose Ondansetron HCl (Zofran Inj*) 4 mg IV Q6H PRN PRN Reason: NAUSEA Phenol/Menthol (Chloroseptic Throat [place]*) 4 spray MT Q4H PRN PRN Reason: SORE THROAT Last Admin: 07/06/16 23:29 Dose: 4 spray Rosuvastatin Calcium (Crestor (Nf)) 20 mg PO 2100 [facility] Vital Signs 07/06/16 07/06/16 07/06/16 15:19 16:52 18:52 Temperature 97.9 F Pulse Rate 70 Respiratory 17 16 16 Rate Blood Pressure 142/49 (mmHg) O2 Sat by Pulse 95 Oximetry 07/06/16 07/07/16 07/07/16 20:00 00:19 07:30 Temperature 97.4 F 97.1 F Pulse Rate 70 90 Respiratory 16 16 16 Rate Blood Pressure 147/60 126/97 (mmHg) O2 Sat by Pulse 96 96 Oximetry Oxygen Devices in Use Now: None Appearance: Eldelry female sitting up in bed, NAD Eyes: No Scleral Icterus Ears/Nose/Mouth/Throat: Mucous Membranes Moist Respiratory: Symmetrical Chest Expansion and Respiratory Effort, Clear to Auscultation Cardiovascular: NL Sounds; No Murmurs; No JVD, RRR, No Edema Abdominal: NL Sounds; No Tenderness; No Distention Extremities: No Clubbing, Cyanosis Skin: No Rash or Ulcers, No Nodules or Sclerosis Neurological: Alert and Oriented x 3 Result Diagrams: 07/02/16 12:15 07/06/16 05:24 Additional Lab and Data: Lab Results 07/02/16 07/02/16 Range/Units 12:15 12:15 WBC 5.8 (3.5-10.8) 10^3/ul RBC 4.32 (4.0-5.4) 10^6/ul Hgb 13.0 (12.0-16.0) g/dl Hct 40 (35-47) % MCV 92 (80-97) fL MCH 30 (27-31) pg MCHC 33 (31-36) g/dl RDW 15 (10.5-15) % Plt Count 156 (150-450) 10^3/ul MPV 8 (7.4-10.4) um3 Sodium 138 (133-145) mmol/L Potassium 4.4 (3.5-5.0) mmol/L Chloride 104 (101-111) mmol/L Carbon Dioxide 24 (22-32) mmol/L Anion Gap 10 (2-11) mmol/L BUN 28 H (6-24) mg/dL Creatinine 1.38 H (0.51-0.95) mg/dL Est GFR ( Amer) 47.9 (>60) Est GFR (Non-Af Amer) 37.3 (>60) BUN/Creatinine Ratio 20.3 H (8-20) Glucose 125 H (70-100) mg/dL Calcium 10.6 H (8.6-10.3) mg/dL Assess/Plan/Problems-Billing Ms Kimball is a 76 yo F who has a h/o cervical dystonia for 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 - Patient Problems (1) Dysphagia Current Visit: Yes Status: Acute Code(s): R13.10 - DYSPHAGIA, UNSPECIFIED SNOMED Code(s): 83734525 Comment: Continue tube feeding for nutrition. ? repeat swallow eval Saturday. The duration of the botox effects is unclear. (2) Hoarseness of voice Current Visit: Yes Status: Acute Comment: Voice is improving. Continue to monitor. (3) Type II diabetes mellitus Current Visit: Yes Status: Acute Comment: Sugars are now mildly elevated. The patient is refusing insulin coverage. Will start invokana through the tube. (4) HTN (hypertension) Current Visit: Yes Status: Acute Code(s): I10 - ESSENTIAL (PRIMARY) HYPERTENSION SNOMED Code(s): 68778762 Comment: BP remains under fair control. Continue home medications through the NG tube except imdur that can not be crushed. (5) DVT prophylaxis Current Visit: Yes Status: Acute Code(s): ZAY6028 - SNOMED Code(s): 750889091 Comment: SQ heparin (pt has been refusing but she is up and ambulating). (6) Full code status Current Visit: Yes Status: Acute Code(s): Z78.9 - OTHER SPECIFIED HEALTH STATUS SNOMED Code(s): 845450006
[2016-07-07] MEDS: Canagliflozin (NF) 100 MG TAB PO SCH (09:41)
[2016-07-07] MEDS: ASPIRIN PO SCH (09:42)
[2016-07-07] MEDS: LOSARTAN 25 MG NG TUBE SCH (09:43)
[2016-07-07] MEDS: ATENOLOL 25 MG NG TUBE SCH (09:43)
[2016-07-07] MEDS: Insulin LISPRO* 1 UNITS UNIT SUBCUT SCH (10:07)
[2016-07-07] MEDS: ROSUVASTATIN 20 MG PO SCH (22:22)
[2016-07-07] MEDS: NON FORMULARY MED 1 DOSE DOSE PO SCH (22:23)
[2016-07-08] MEDS: Heparin VIAL(*) 5000 UNITS/ML VIAL (FIVE THOUSAND) SUBCUT SCH ×4 (00:44→22:08)
[2016-07-08] MEDS: Phenol 1.4% Spray* 177 ML BTL MT PRN (00:50)
[2016-07-08] MEDS: FLUTICASONE 100 MCG INH SCH ×2 (10:13→21:23)
[2016-07-08] MEDS: LOSARTAN 25 MG NG TUBE SCH (10:20)
[2016-07-08] MEDS: ASPIRIN PO SCH (10:21)
[2016-07-08] MEDS: Canagliflozin (NF) 100 MG TAB PO SCH (10:22)
--- NOTE | 2016-07-08 10:52 | PN ---
Subjective Date of Service: 07/08/16 Interval History: Pt is feeling well. She c/o sore throat and is not sure if it is related to a cold, the NG tube or clearing her throat. She had formed BM this AM. Objective Active Medications: Albuterol (Ventolin Hfa Inhaler*) 2 puff INH Q4H PRN PRN Reason: DYSPNEA Aspirin (Aspirin Ec Low Dose*) 81 mg PO DAILY [facility] Last Admin: 07/08/16 10:21 Dose: 81 mg Atenolol (Tenormin Tab*) 25 mg NG TUBE EVERY OTHER DAY [facility] Last Admin: 07/07/16 09:43 Dose: 25 mg Canagliflozin (Invokana (Nf)) 100 mg PO DAILY [facility] Last Admin: 07/08/16 10:22 Dose: 100 mg Diphenhydramine HCl (Benadryl Po*) 25 mg PO Q6H PRN PRN Reason: sneezing Last Admin: 07/06/16 16:52 Dose: 25 mg Fluticasone Propionate (Flovent Diskus 100 Mcg(Nf)) 1 puff INH BID [facility] Last Admin: 07/08/16 10:13 Dose: 1 puff Heparin Sodium (Porcine) (Heparin Vial(*)) 5,000 units SUBCUT Q8HR [facility] Last Admin: 07/08/16 07:13 Dose: Not Given Losartan Potassium (Cozaar Tab*) 12.5 mg NG TUBE DAILY [facility] Last Admin: 07/08/16 10:20 Dose: 12.5 mg Non-Formulary Medication (Non Formulary Med(Nf)) 1 dose PO BEDTIME [facility] Last Admin: 07/07/16 22:23 Dose: 1 dose Ondansetron HCl (Zofran Inj*) 4 mg IV Q6H PRN PRN Reason: NAUSEA Phenol/Menthol (Chloroseptic Throat [place]*) 4 spray MT Q4H PRN PRN Reason: SORE THROAT Last Admin: 07/08/16 00:50 Dose: 2 spray Rosuvastatin Calcium (Crestor (Nf)) 20 mg PO 2100 [facility] Last Admin: 07/07/16 22:22 Dose: 20 mg Vital Signs 07/07/16 07/07/16 07/07/16 15:38 20:00 23:01 Temperature 97.4 F 98.4 F Pulse Rate 67 62 Respiratory 12 16 18 Rate Blood Pressure 137/57 132/46 (mmHg) O2 Sat by Pulse 95 96 Oximetry 07/08/16 07:16 Temperature 97.5 F Pulse Rate 66 Respiratory 16 Rate Blood Pressure 130/67 (mmHg) O2 Sat by Pulse 95 Oximetry Oxygen Devices in Use Now: None Appearance: Elderly female sitting up in bed, NAD Eyes: No Scleral Icterus Ears/Nose/Mouth/Throat: Mucous Membranes Moist, - - NG tube in place Respiratory: Symmetrical Chest Expansion and Respiratory Effort, Clear to Auscultation - anteriorly Cardiovascular: NL Sounds; No Murmurs; No JVD, RRR, No Edema Abdominal: NL Sounds; No Tenderness; No Distention Extremities: No Clubbing, Cyanosis Skin: No Rash or Ulcers, No Nodules or Sclerosis Neurological: Alert and Oriented x 3 Result Diagrams: 07/02/16 12:15 07/06/16 05:24 Additional Lab and Data: Lab Results 07/02/16 07/02/16 Range/Units 12:15 12:15 WBC 5.8 (3.5-10.8) 10^3/ul RBC 4.32 (4.0-5.4) 10^6/ul Hgb 13.0 (12.0-16.0) g/dl Hct 40 (35-47) % MCV 92 (80-97) fL MCH 30 (27-31) pg MCHC 33 (31-36) g/dl RDW 15 (10.5-15) % Plt Count 156 (150-450) 10^3/ul MPV 8 (7.4-10.4) um3 Sodium 138 (133-145) mmol/L Potassium 4.4 (3.5-5.0) mmol/L Chloride 104 (101-111) mmol/L Carbon Dioxide 24 (22-32) mmol/L Anion Gap 10 (2-11) mmol/L BUN 28 H (6-24) mg/dL Creatinine 1.38 H (0.51-0.95) mg/dL Est GFR ( Amer) 47.9 (>60) Est GFR (Non-Af Amer) 37.3 (>60) BUN/Creatinine Ratio 20.3 H (8-20) Glucose 125 H (70-100) mg/dL Calcium 10.6 H (8.6-10.3) mg/dL Assess/Plan/Problems-Billing Ms Kimball is a 76 yo F who has a h/o cervical dystonia for 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 - Patient Problems (1) Dysphagia Current Visit: Yes Status: Acute Code(s): R13.10 - DYSPHAGIA, UNSPECIFIED SNOMED Code(s): 61815673 Comment: Continue tube feeding (Glucerna 1.2 at 55ml/hr continuously) for nutrition. ? repeat swallow eval Saturday. The duration of the botox effects is unclear. ? GI eval for PEG or home with NG tube for a short duration to see if the effects wear off. (2) Hoarseness of voice Current Visit: Yes Status: Acute Comment: Voice is improving. Continue to monitor. (3) Type II diabetes mellitus Current Visit: Yes Status: Acute Comment: Sugars are now mildly elevated- she declines lispro coverage. Continue invokana through the tube. (4) HTN (hypertension) Current Visit: Yes Status: Acute Code(s): I10 - ESSENTIAL (PRIMARY) HYPERTENSION SNOMED Code(s): 08351933 Comment: BP remains under fair control. Continue home medications through the NG tube except imdur that can not be crushed. (5) DVT prophylaxis Current Visit: Yes Status: Acute Code(s): SHY7960 - SNOMED Code(s): 603599034 Comment: SQ heparin (pt has been refusing but she is up and ambulating). (6) Full code status Current Visit: Yes Status: Acute Code(s): Z78.9 - OTHER SPECIFIED HEALTH STATUS SNOMED Code(s): 881991991
[2016-07-08] MEDS: NON FORMULARY MED 1 DOSE DOSE PO SCH (21:27)
[2016-07-08] MEDS: ROSUVASTATIN 20 MG PO SCH (21:27)
[2016-07-09] MEDS: Heparin VIAL(*) 5000 UNITS/ML VIAL (FIVE THOUSAND) SUBCUT SCH ×3 (06:26→20:04)
[2016-07-09] MEDS: FLUTICASONE 100 MCG INH SCH (07:21)
[2016-07-09] MEDS: LOSARTAN 25 MG NG TUBE SCH (07:22)
[2016-07-09] MEDS: Canagliflozin (NF) 100 MG TAB PO SCH (07:22)
[2016-07-09] MEDS: ATENOLOL 25 MG NG TUBE SCH (07:22)
[2016-07-09] MEDS: ASPIRIN PO SCH (07:22)
--- NOTE | 2016-07-09 09:43 | PN ---
Subjective Date of Service: 07/09/16 Interval History: Pt is feeling well except she has pain in her R ear. No SOB. No issues with the tube feeds. Objective Active Medications: Albuterol (Ventolin Hfa Inhaler*) 2 puff INH Q4H PRN PRN Reason: DYSPNEA Aspirin (Aspirin Ec Low Dose*) 81 mg PO DAILY [facility] Last Admin: 07/09/16 07:22 Dose: 81 mg Atenolol (Tenormin Tab*) 25 mg NG TUBE EVERY OTHER DAY [facility] Last Admin: 07/09/16 07:22 Dose: 25 mg Canagliflozin (Invokana (Nf)) 100 mg PO DAILY [facility] Last Admin: 07/09/16 07:22 Dose: 100 mg Diphenhydramine HCl (Benadryl Po*) 25 mg PO Q6H PRN PRN Reason: sneezing Last Admin: 07/06/16 16:52 Dose: 25 mg Fluticasone Propionate (Flovent Diskus 100 Mcg(Nf)) 1 puff INH BID [facility] Last Admin: 07/09/16 07:21 Dose: 1 puff Heparin Sodium (Porcine) (Heparin Vial(*)) 5,000 units SUBCUT Q8HR [facility] Last Admin: 07/09/16 06:26 Dose: Not Given Losartan Potassium (Cozaar Tab*) 12.5 mg NG TUBE DAILY [facility] Last Admin: 07/09/16 07:22 Dose: 12.5 mg Non-Formulary Medication (Non Formulary Med(Nf)) 1 dose PO BEDTIME [facility] Last Admin: 07/08/16 21:27 Dose: 1 dose Ondansetron HCl (Zofran Inj*) 4 mg IV Q6H PRN PRN Reason: NAUSEA Phenol/Menthol (Chloroseptic Throat [place]*) 4 spray MT Q4H PRN PRN Reason: SORE THROAT Last Admin: 07/08/16 00:50 Dose: 2 spray Rosuvastatin Calcium (Crestor (Nf)) 20 mg PO 2100 [facility] Last Admin: 07/08/16 21:27 Dose: 20 mg Vital Signs 07/08/16 07/08/16 07/08/16 14:20 20:00 23:03 Temperature 98.0 F 98.6 F Pulse Rate 71 77 Respiratory 18 16 16 Rate Blood Pressure 140/63 152/91 (mmHg) O2 Sat by Pulse 98 95 Oximetry 07/09/16 07/09/16 07:58 08:18 Temperature 98.4 F Pulse Rate 67 Respiratory 20 20 Rate Blood Pressure 135/49 (mmHg) O2 Sat by Pulse 94 Oximetry Oxygen Devices in Use Now: None Appearance: Elderly female sitting up in bed, NAD Eyes: No Scleral Icterus Ears/Nose/Mouth/Throat: Mucous Membranes Moist, - - R TM is not erythematous, no purulence Respiratory: Symmetrical Chest Expansion and Respiratory Effort, Clear to Auscultation Cardiovascular: NL Sounds; No Murmurs; No JVD, RRR, No Edema Abdominal: NL Sounds; No Tenderness; No Distention Extremities: No Clubbing, Cyanosis Skin: No Rash or Ulcers, No Nodules or Sclerosis Neurological: Alert and Oriented x 3 Result Diagrams: 07/02/16 12:15 07/06/16 05:24 Additional Lab and Data: Lab Results 07/02/16 07/02/16 Range/Units 12:15 12:15 WBC 5.8 (3.5-10.8) 10^3/ul RBC 4.32 (4.0-5.4) 10^6/ul Hgb 13.0 (12.0-16.0) g/dl Hct 40 (35-47) % MCV 92 (80-97) fL MCH 30 (27-31) pg MCHC 33 (31-36) g/dl RDW 15 (10.5-15) % Plt Count 156 (150-450) 10^3/ul MPV 8 (7.4-10.4) um3 Sodium 138 (133-145) mmol/L Potassium 4.4 (3.5-5.0) mmol/L Chloride 104 (101-111) mmol/L Carbon Dioxide 24 (22-32) mmol/L Anion Gap 10 (2-11) mmol/L BUN 28 H (6-24) mg/dL Creatinine 1.38 H (0.51-0.95) mg/dL Est GFR ( Amer) 47.9 (>60) Est GFR (Non-Af Amer) 37.3 (>60) BUN/Creatinine Ratio 20.3 H (8-20) Glucose 125 H (70-100) mg/dL Calcium 10.6 H (8.6-10.3) mg/dL Assess/Plan/Problems-Billing Ms Kimball is a 76 yo F who has a h/o cervical dystonia for 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 - Patient Problems (1) Dysphagia Current Visit: Yes Status: Acute Code(s): R13.10 - DYSPHAGIA, UNSPECIFIED SNOMED Code(s): 49415351 Comment: Continue tube feeding (Glucerna 1.2 at 55ml/hr continuously) for nutrition. No plans for swallow eval today. I have a call out to GI to see if home with NG tube would be possible or if a PEG should be considered. Will likely not repeat a swallow eval until the patient feels she has improved further. Will try to change to bolus feeds as opposed to continuous so she is not hooked up to a pump all day long. (2) Hoarseness of voice Current Visit: Yes Status: Acute Comment: Voice is improving. Continue to monitor. (3) Type II diabetes mellitus Current Visit: Yes Status: Acute Comment: Sugars are mildly elevated. Continue invokana. (4) HTN (hypertension) Current Visit: Yes Status: Acute Code(s): I10 - ESSENTIAL (PRIMARY) HYPERTENSION SNOMED Code(s): 22408686 Comment: BP remains under fair control. Continue home medications through the NG tube except imdur that can not be crushed. (5) DVT prophylaxis Current Visit: Yes Status: Acute Code(s): [id number] - SNOMED Code(s): 193869995 Comment: SQ heparin (pt has been refusing but she is up and ambulating). (6) Full code status Current Visit: Yes Status: Acute Code(s): Z78.9 - OTHER SPECIFIED HEALTH STATUS SNOMED Code(s): 270092337
[2016-07-09] MEDS: NON FORMULARY MED 1 DOSE DOSE PO SCH (20:03)
[2016-07-09] MEDS: ROSUVASTATIN 20 MG PO SCH (20:04)
[2016-07-09] MEDS: Phenol 1.4% Spray* 177 ML BTL MT PRN (21:46)
[2016-07-10] MEDS: FLUTICASONE 100 MCG INH SCH ×3 (01:11→21:02)
[2016-07-10] MEDS: Heparin VIAL(*) 5000 UNITS/ML VIAL (FIVE THOUSAND) SUBCUT SCH ×3 (06:19→22:47)
[2016-07-10] MEDS: LOSARTAN 25 MG NG TUBE SCH (10:28)
[2016-07-10] MEDS: Canagliflozin (NF) 100 MG TAB PO SCH (10:29)
[2016-07-10] MEDS: ASPIRIN PO SCH (10:35)
--- NOTE | 2016-07-10 15:12 | PN ---
Subjective Date of Service: 07/10/16 Interval History: HOSPITALIST PROGRESS NOTE Patient seen and examined at bedside. She feels better today. Had diarrhea yesterday with 2 cans of Glucerna, but doing better today with one can at a time. Denies abdominal pain or nausea. Tried ice chips earlier, but noticed no change in her swallowing. Thinks the improvement she felt last night was "wishful thinking". Family History: Unchanged from Admission Social History: Unchanged from Admission Past Medical History: Unchanged from Admission Objective Active Medications: Albuterol (Ventolin Hfa Inhaler*) 2 puff INH Q4H PRN PRN Reason: DYSPNEA Aspirin (Aspirin Ec Low Dose*) 81 mg PO DAILY [facility] Last Admin: 07/10/16 10:35 Dose: 81 mg Atenolol (Tenormin Tab*) 25 mg NG TUBE EVERY OTHER DAY [facility] Last Admin: 07/09/16 07:22 Dose: 25 mg Canagliflozin (Invokana (Nf)) 100 mg PO DAILY [facility] Last Admin: 07/10/16 10:29 Dose: 100 mg Diphenhydramine HCl (Benadryl Po*) 25 mg PO Q6H PRN PRN Reason: sneezing Last Admin: 07/06/16 16:52 Dose: 25 mg Fluticasone Propionate (Flovent Diskus 100 Mcg(Nf)) 1 puff INH BID [facility] Last Admin: 07/10/16 10:37 Dose: 1 puff Heparin Sodium (Porcine) (Heparin Vial(*)) 5,000 units SUBCUT Q8HR [facility] Last Admin: 07/10/16 12:12 Dose: Not Given Losartan Potassium (Cozaar Tab*) 12.5 mg NG TUBE DAILY [facility] Last Admin: 07/10/16 10:28 Dose: 12.5 mg Non-Formulary Medication (Non Formulary Med(Nf)) 1 dose PO BEDTIME [facility] Last Admin: 07/09/16 20:03 Dose: 1 dose Ondansetron HCl (Zofran Inj*) 4 mg IV Q6H PRN PRN Reason: NAUSEA Phenol/Menthol (Chloroseptic Throat [place]*) 4 spray MT Q4H PRN PRN Reason: SORE THROAT Last Admin: 07/09/16 21:46 Dose: 1 spray Rosuvastatin Calcium (Crestor (Nf)) 20 mg PO 2100 [facility] Last Admin: 07/09/16 20:04 Dose: 20 mg Vital Signs 07/10/16 07/10/16 08:00 08:01 Temperature 97.3 F Pulse Rate 75 Respiratory 18 15 Rate Blood Pressure 136/53 (mmHg) O2 Sat by Pulse 99 Oximetry Oxygen Devices in Use Now: None Appearance: Pleasant elderly lady sitting up in bed in NAD. Eyes: No Scleral Icterus Ears/Nose/Mouth/Throat: Mucous Membranes Moist Neck: Trachea Midline Respiratory: Symmetrical Chest Expansion and Respiratory Effort, Clear to Auscultation Cardiovascular: RRR - Normal S1 and S2 Abdominal: NL Sounds; No Tenderness; No Distention Extremities: No Edema Neurological: Alert and Oriented x 3, NL Muscle Strength and Tone Lines/Tubes/Other Access: Clean, Dry and Intact Naso-enteral Tube Nutrition: TEN Result Diagrams: 07/02/16 12:15 07/06/16 05:24 Assess/Plan/Problems-Billing Assessment: Ms Kimball is a 76 yo F who has a h/o cervical dystonia for which she receives routine botox injections, type II DM, HTN and hyperlipidemia who presented to the ER with c/o hoarse voice and difficulty swallowing after her last Botox injection. - Patient Problems (1) Dysphagia Comment: - Continue tube feeding (Glucerna 1.2 5-6 cans/day) bolus feeding. Patient prefers to take 1 can at a time to avoid diarrhea. - Dr. Vázquez discussed case with GI - plan to follow up as outpatient and if dysphagia persists, prepare for PEG placement. (2) Hoarseness of voice Comment: - Patient feels her voice continues to improve. (3) Type II diabetes mellitus Comment: - Sugars are mildly elevated. - Continue Invokana and monitor FS. (4) HTN (hypertension) Comment: - Controlled. - Continue Atenolol and Losartan. - Imdur was discontinue as it cannot be crushed. (5) DVT prophylaxis Comment: - SQ heparin. (6) Full code status Status and Disposition: Inpatient. Anticipate d/c in AM.
[2016-07-10] MEDS: ROSUVASTATIN 20 MG PO SCH (21:03)
[2016-07-10] MEDS: NON FORMULARY MED 1 DOSE DOSE PO SCH (21:03)
[2016-07-11] MEDS: Heparin VIAL(*) 5000 UNITS/ML VIAL (FIVE THOUSAND) SUBCUT SCH ×2 (06:16→13:27)
[2016-07-11] MEDS: ATENOLOL 25 MG NG TUBE SCH (10:26)
[2016-07-11] MEDS: ASPIRIN PO SCH (10:26)
[2016-07-11] MEDS: FLUTICASONE 100 MCG INH SCH (10:27)
[2016-07-11] MEDS: Canagliflozin (NF) 100 MG TAB PO SCH (10:27)
[2016-07-11] MEDS: LOSARTAN 25 MG NG TUBE SCH (10:27)
[2016-07-11 13:11] VITALS: BP 134/47
--- NOTE | 2016-07-12 01:29 | DS ---
DISCHARGE SUMMARY: DATE OF ADMISSION: 07/02/16 DATE OF DISCHARGE: 07/11/16 PRIMARY CARE PROVIDER: Dr. New. NEUROLOGIST: Dr. Jose Ratliff. GLASS MECHANIC: Dr. Hung. DISCHARGE DIAGNOSIS: Botox-induced dysphagia. SECONDARY DIAGNOSES: 1. Cervical dystonia. 2. Type 2 diabetes. 3. Hypertension. 4. Asthma. 5. Status post carotid endarterectomy. 6. Hyperlipidemia. MEDICATION LIST: 1. Advair 100/50 one puff inhaled b.i.d. 2. Albuterol HFA 2 puffs inhaled q.4 hours as needed for shortness of breath and wheezing. 3. Aspirin 81 mg via NG tube daily. 4. Atenolol 25 mg via NG tube every other day. 5. Invokana 100 mg via NG tube daily. 6. Losartan 12.5 mg via NG tube daily. 7. Oxybutynin 10 mg via NG tube at bedtime. 8. Chloraseptic throat spray, 4 sprays per mouth, q.4 hours as needed for sore throat. 9. Rosuvastatin 20 mg via NG tube at bedtime. HOSPITAL COURSE: Ms. Kimball is a 76-year-old lady with a past medical history as stated above that on June [address] Ratliff for a Botox injection. The patient states that for more than a week prior to admission, she was having difficulty swallowing. She was still able to swallow liquids at that time, but she had severe coughing and choking when trying to swallow solids. For more details, I refer you to her history and physical. The patient was admitted to the medical floor and an NG tube was placed, so the patient could receive her medications and nutrition. The patient had a swallow evaluation performed with barium swallow on July 03, and it showed incomplete relaxation of the cricopharyngeus with pooling of contrast in the hypopharynx leading to penetration without aspiration. She was once again re-evaluated on July 05 and again was noted incomplete relaxation of the cricopharyngeus with aspiration of food residual in hypopharynx. The patient was followed by Speech Therapy and she was felt to be not safe for an oral diet. The impression was this was secondary to her Botox injection, so the patient was continued on NG tube for nutrition. Her hoarseness of the voice has showed some improvement, but her swallowing showed no changes at this point. Dr. Vázquez discussed the case with Gastroenterology and recommendation was to continue feeding through an NG tube and the patient will follow up with her primary care provider as outpatient next week, but if she continues to be unable to swallow, she will need a PEG placed. The patient received extensive education about her NG tube care and she feels that she will be able to manage it at home for diet and medications. Her glucose and blood pressure remained controlled while in the hospital. Her Imdur was discontinued because the medication cannot be crushed, but if her blood pressure trends up and a nitrate is needed, I believe a nitro patch could be added. Her Januvia cannot be crushed also, so she will be continued on Invokana only, but her sugar has been fairly controlled with just that medication at this point. I did call Dr. New after discharge. The patient will follow up with Dr. New on July 17 and at that point, if she has some return of her swallowing function, the idea would be to have another Speech Pathology evaluation as outpatient, but if the patient is not able to swallow, she would definitely need evaluation by Dr. Hung for PEG placement. PHYSICAL EXAMINATION: Vital Signs: Temperature 98.6, heart rate 73, respiratory rate 16, oxygen saturation 95% on room air, blood pressure 134/47. General: The patient is a pleasant elderly lady, sitting up in bed, in no acute distress. CVS: Normal S1 and S2. Regular rate and rhythm. Chest: Breath sounds present bilaterally with no added sounds. Abdomen: Soft. Bowel sounds present. Extremities: No edema. Neuro: She is alert, awake, oriented x3. Able to move all 4 extremities. DIET: Glucerna 1.2 five to six cans a day. ACTIVITIES: As tolerated. DISPOSITION: To home. STATUS WHILE IN THE HOSPITAL: Inpatient. Please keep in mind that this is a summarized version of this patient's hospital stay. If you need more information, please feel free to call me at or please obtain the full medical records. TIME SPENT: Approximately 45 minutes was spent to complete this discharge. CC: Dr. New; Dr. Jose Ratliff, phone #[phone]; Dr. Hung* [id number]/[facility] #: [id number] [facility]
== END 2016-07-11 14:20 | disposition home or self-care (01) | DRG 392 ==
LOC: ED 11:40 → OBSVTOIN 14:01 → MED 14:01
PROVIDERS: ADMIT Internal Medicine; ATTEND Internal Medicine
PROC: 0D9670Z Drainage of Stomach with Drainage Device, Via Natural or Artificial Opening (ICD-10-PCS; principal; 2016-07-02)
DX: R13.19 Other dysphagia (principal); E11.40 Type 2 diabetes mellitus with diabetic neuropathy, unspecified; E11.51 Type 2 diabetes mellitus with diabetic peripheral angiopathy without gangrene; G24.8 Other dystonia; T48.295A Adverse effect of other drugs acting on muscles, initial encounter; Z88.2 Allergy status to sulfonamides; Z91.040 Latex allergy status; I25.10 Atherosclerotic heart disease of native coronary artery without angina pectoris; I10 Essential (primary) hypertension; J45.909 Unspecified asthma, uncomplicated; J44.9 Chronic obstructive pulmonary disease, unspecified; G47.30 Sleep apnea, unspecified; K21.9 Gastro-esophageal reflux disease without esophagitis; M13.80 Other specified arthritis, unspecified site; M81.0 Age-related osteoporosis without current pathological fracture; Z98.42 Cataract extraction status, left eye; Z98.41 Cataract extraction status, right eye; F41.9 Anxiety disorder, unspecified; F32.9 Major depressive disorder, single episode, unspecified; K44.9 Diaphragmatic hernia without obstruction or gangrene; Z82.49 Family history of ischemic heart disease and other diseases of the circulatory system; Z82.3 Family history of stroke; Z80.6 Family history of leukemia; R49.0 Dysphonia; Z88.8 Allergy status to other drugs, medicaments and biological substances; Z83.3 Family history of diabetes mellitus; E78.00 Pure hypercholesterolemia, unspecified; Z79.82 Long term (current) use of aspirin
CPT/HCPCS: 36415; 71010; 71020; 74230; 80048; 85027; 94660; A9270-GY; J1644

== ENCOUNTER 2016-07-23 13:16 | Observation (INO) | payer MEDICARE ==
[2016-07-23] MEDS ORDERED: Midazolam* 1 MG/ML 10 ML VIAL (10 MG) ONE (14:12)
[2016-07-23] MEDS ORDERED: ceFAZolin 2 GM PREMIX(*) 2 GM/50 ML BAG IVPB ONE (14:12)
[2016-07-23] MEDS ORDERED: Meperidine SYRINGE* 50 MG/ML ONE (14:12)
[2016-07-23] MEDS: D5W 1000 ML BAG* 1,000 ML IV SCH (16:50)
[2016-07-23] MEDS: HYDROmorphone* 2 MG/ML 1 ML SYR IV PRN (18:04)
[2016-07-23] MEDS: Atorvastatin* 40 MG TAB NG TUBE SCH (18:24)
[2016-07-23] MEDS ORDERED: Albuterol HFA INHALER* 8 gm MDI INH PRN (18:28)
[2016-07-23] MEDS ORDERED: Atenolol TAB* 25 MG NG TUBE SCH (19:00)
[2016-07-23] MEDS: FLUTICASONE SALMETEROL INH SCH (19:18)
[2016-07-23] MEDS ORDERED: Nitro Patch/OINT Remove PATCH OFF SCH (22:00)
[2016-07-24] MEDS: HYDROmorphone* 2 MG/ML 1 ML SYR IV PRN (04:07)
[2016-07-24] MEDS: Ondansetron INJ* 2 MG/ML VIAL IV PRN ×2 (04:27→11:09)
--- NOTE | 2016-07-24 05:30 | PRO ---
DATE OF PROCEDURE: 07/23/16 - ROOM #[id number] REQUESTING PHYSICIAN: Dr. New. INDICATION: Dysphagia. MEDICATIONS GIVEN: 50 mg IV Demerol, 9 mg IV Versed, 2 g IV cefazolin. DESCRIPTION OF PROCEDURE: After the EGD and PEG tube placement procedure, including the risks, benefits, and alternatives, not limited to perforation, surgery, and/or were explained to Ms. Kimball, written consent was then obtained. IV medication was given and a bite block was placed between the teeth. An Olympus gastroscope was then inserted into the patient's mouth, advanced down the esophagus, into the stomach, and into the distal duodenum. In the esophagus, at the GE junction, the Z-line was intact. No erosive esophagitis, stricture, or ring was seen. The scope was advanced through the GE junction into the body of the stomach. Retroflex view was unremarkable. Forward view also was unremarkable. The scope was advanced through a widely patent pylorus, into the duodenal bulb, and into the distal duodenum, both of which were unremarkable. The scope was then withdrawn into the stomach, where I did insufflate air and then pushed on her external abdominal wall approximately 5 fingerbreadths below her xiphoid and 5 to the left to find appropriate position for the PEG tube. She is moderately obese. Her ribs did seem to extend down further than normal, thus I needed to move my placement lower. I then cleaned her over-lying left upper quadrant skin very well. Used 2 cc of 1% lidocaine to anesthetize the tract with needle and lidocaine syringe attached.. The needle easily went through her abdominal wall into the stomach. Only half the length of the needle was inserted to gain access to her stomach lumen. I then replaced it with a larger trocar needle with lidocaine syringe attached and placed it through the original tract, after a small incision had been made and it also went easily into the stomach. A blue wire was placed through the trocar needle and was grasped with a snare. The snare and scope were withdrawn from the patient. The PEG tube was then tied on to the end of the blue wire and then successfully pulled into place. Second-look endoscopy did confirm successful placement of the PEG tube within the gastric lumen. Scope was withdrawn from the patient. She tolerated the procedure well and is being admitted to the hospital as per my routine protocol. IMPRESSION: 1. Complete upper endoscopy into the distal duodenum with PEG tube placement. 2. Successful PEG tube placement. 3. She will be admitted to the hospital, have a nutrition consult, have teaching, and if she is doing well can likely be discharged tomorrow. CC: Dr. New * [id number]/[facility] #: [id number] [facility]
[2016-07-24] MEDS: D5W 1000 ML BAG* 1,000 ML IV SCH (05:56)
[2016-07-24 06:46] LABS: Hematocrit 37 % (35-47); Mean Corpuscular HGB Conc 33 g/dl (31-36); Mean Corpuscular Hemoglobin 30 pg (27-31); Mean Corpuscular Volume 93 fL (80-97); Mean Platelet Volume 8 um3 (7.4-10.4); Red Blood Count 3.95 10^6/ul (4.0-5.4); Red Cell Distribution Width 15 % (10.5-15); White Blood Count 13.4 10^3/ul (3.5-10.8)
[2016-07-24] MEDS ORDERED: Losartan TAB* 25 MG NG TUBE SCH (09:00)
[2016-07-24] MEDS ORDERED: Nitroglycerin 0.2 MG/HR PATCH* (5 MG) TRANSDERM SCH (10:00)
[2016-07-24] MEDS: FLUTICASONE SALMETEROL INH SCH (11:22)
[2016-07-24] MEDS ORDERED: Canagliflozin (NF) 100 MG TAB PO SCH (13:00)
[2016-07-24] MEDS: Atorvastatin* 40 MG TAB NG TUBE SCH (13:08)
[2016-07-24 15:23] VITALS: BP 121/40
[2016-07-25] MEDS ORDERED: Atenolol TAB* 25 MG PEG TUBE SCH (09:00)
[2016-07-25] MEDS ORDERED: Losartan TAB* 25 MG PEG TUBE SCH (09:00)
== END 2016-07-24 16:30 | disposition home or self-care (01) ==
LOC: ENDO 13:16 → SSU 16:28
PROVIDERS: ADMIT Internal Medicine Gastroenterology; ATTEND Internal Medicine Gastroenterology
PROC: 0DH63UZ Insertion of Feeding Device into Stomach, Percutaneous Approach (ICD-10-PCS; principal; 2016-07-23)
DX: R13.10 Dysphagia, unspecified (principal); E11.9 Type 2 diabetes mellitus without complications; K21.9 Gastro-esophageal reflux disease without esophagitis; K57.90 Diverticulosis of intestine, part unspecified, without perforation or abscess without bleeding; Z86.010 Personal history of colon polyps
CPT/HCPCS: 36415; 85027; 96374; 96375; A9270-GY; G0378; J0690; J1170; J2250; J2405

== ENCOUNTER 2016-08-05 11:45 | Emergency (ER) | payer MEDICARE ==
[2016-08-05 13:48] VITALS: BP 121/56
--- NOTE | 2016-08-05 14:02 | UC ---
Complaint Female HPI - HPI Summary HPI Summary: 76 YO FEMALE WITH A 3 DAY HX OF INCREASED FREQUENCY OF URINATION/URGENCY AND BURNING WITH URINATION NO FEVER/CHILLS CURRENT BEING RXED FOR SHINGLES LEFT FLANK NO N/V/D - History Of Current Complaint Chief Complaint: UCGU Stated Complaint: URINARY ISSUE Time Seen by Provider: 08/05/16 13:50 Hx Obtained From: Patient Onset/Duration: Gradual Onset Timing: Constant Severity Initially: Mild Severity Currently: Mild Pain Intensity: 4 - FROM SHINGLES Pain Scale Used: 0-10 Numeric Character: Burning Aggravating Factor(s): Urination Associated Signs And Symptoms: Negative: Fever, Back Pain, Vaginal Bleeding/ Discharge, Vaginal Discharge, Nausea, Vomiting(# Of Episodes =), Genital Swelling, Genital Blisters, Retained Foregin Body (Specify) Related Hx: Similar Episode/Dx as: - UTI - Allergies/Home Medications Allergies/Adverse Reactions: Allergies Allergy/AdvReac Type Severity Reaction Status Date / Time Sulfa Drugs Allergy Severe Hives Verified 08/05/16 13:34 Latex Allergy Rash Verified 08/05/16 13:34 Metoprolol Allergy extreme Verified 08/05/16 13:34 fatigue dust mite Allergy Unknown Uncoded 08/05/16 13:34 Reaction Details ENVIRONMENTAL Allergy Unknown Uncoded 08/05/16 13:34 Reaction Details Home Medications: Home Medications Linagliptin (NF) [Tradjenta (NF)] 5 mg NG TUBE DAILY 08/05/16 [History Confirmed 08/05/16] ValACYclovir (*) [Valtrex 500 mg (*)] 500 mg NG TUBE Q8H 08/05/16 [History Confirmed 08/05/16] PMH/Surg Hx/FS Hx/Imm Hx Previously Healthy: Yes Endocrine History Of: Reports: Diabetes - Type 2 Denies: Thyroid Disease Cardiovascular History Of: Reports: Cardiac Disorders - "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", Hypertension Respiratory History Of: Reports: COPD, Asthma GI/ History Of: Denies: Ulcer Psychological History Of: Reports: Anxiety - 1999, OK NOW, Depression - 2002 - NO PROBLEMS SINCE Cancer History Of: Denies: Breast Cancer - Surgical History Surgical History: Yes Surgery Procedure, Year, and Place: 1989Hammer Toe Surgery Right Foot 1997 ; Right Knee Surgery, 2010, [facility] [place]; Fractured Left Shoulder, 1988 ; Hysterectomy, 1993 ; Breast ReductioN, 1985; Right Knee ArthroscopyX2, 1993, 2006, [facility], eye surgery jun 29 2013 lid reduction.; Right Endartarectomy 2004, [place] ; VaricoseVein Surgery Right Leg 2006, [place];TOTAL RIGHT KNEE, 2010, [facility], RIGHT [facility], [facility] 2010 Right TKR, [facility] [place]. RIGHT carotid 2006 - Family History Known Family History: Positive: Unknown, Cardiac Disease - Social History Alcohol Use: None Substance Use Type: None Smoking Status (MU): Never Smoked Tobacco - Immunization History Most Recent Influenza Vaccination: 2016 Most Recent Tetanus Shot: unk Most Recent Pneumonia Vaccination: 2006 Review of Systems Constitutional: Fatigue Skin: Rash Eyes: Negative ENT: Negative Respiratory: Negative Cardiovascular: Negative Gastrointestinal: Negative Genitourinary: Dysuria, Frequency, Urgency Motor: Negative Neurovascular: Negative Musculoskeletal: Negative Neurological: Negative Psychological: Negative All Other Systems Reviewed And Are Negative: Yes Physical Exam Triage Information Reviewed: Yes Appearance: Well-Appearing, No Pain Distress Vital Signs: Initial Vital Signs Temp 98.5 F 08/05/16 13:40 Pulse 67 08/05/16 13:40 Resp 18 08/05/16 13:40 BP 121/56 08/05/16 13:40 Pulse Ox 97 08/05/16 13:40 Vital Signs Reviewed: Yes Eyes: Positive: Conjunctiva Clear ENT: Positive: Hearing grossly normal. Negative: Nasal congestion, Nasal drainage, Trismus, Muffled/hoarse voice Neck: Positive: Supple, Nontender Respiratory: Positive: Lungs clear, Normal breath sounds, No respiratory distress, No accessory muscle use Cardiovascular: Positive: RRR, No Murmur Abdomen Description: Positive: Nontender, Other: - G-TUBE. Negative: CVA Tenderness (R), CVA Tenderness (L) Musculoskeletal: Positive: No Edema Neurological: Positive: Alert Skin: Positive: rashes - LEFT FLANK Complaint Female Dx - Differential Dx/Diagnosis Provider Diagnoses: ACUTE CYSTITIS Discharge - Discharge Plan Condition: Stable Disposition: HOME Prescriptions: Cephalexin SUSP* [Keflex SUSP*] 500 mg FEED TUBE BID #[id number] oral.susp Patient Education Materials: Urinary Tract Infection in Women (ED) Referrals: Justa New MD [Primary Care Provider] - 3 Days (IF NOT BETTER) Additional Instructions: A URINE CULTURE IS PENDING I AM EXPECTING YOU TO NOTICE IMPROVEMENT IN 12-24 HOURS AND TO BE BACK TO NORMAL IN 2 DAYS
== END 2016-08-05 14:12 | disposition home or self-care (01) ==
LOC: UCEAST 11:45
DX: N30.00 Acute cystitis without hematuria (principal); E11.9 Type 2 diabetes mellitus without complications; J44.9 Chronic obstructive pulmonary disease, unspecified; Z88.2 Allergy status to sulfonamides
CPT/HCPCS: 81003; 87077; 87086; 87186; 99212; G0463

== ENCOUNTER 2016-11-24 11:54 | Emergency (ER) | payer MEDICARE ==
[2016-11-24 12:12] VITALS: BP 116/49
--- NOTE | 2016-11-24 13:18 | UC ---
UC General HPI - HPI Summary HPI Summary: noticed oozing blood around g-tube site---no pain no erythema, no purulent drainage no feeding no blood in g-tube - History of Current Complaint Chief Complaint: UCGeneralIllness Stated Complaint: BLEEDING AROUND FEEDING TUBE SITE Time Seen by Provider: 11/24/16 13:16 Hx Obtained From: Patient Onset/Duration: Sudden Onset, Lasting Days - 2, Still Present Timing: Constant Onset Severity: Mild Current Severity: Mild - Allergy/Home Medications Allergies/Adverse Reactions: Allergies Allergy/AdvReac Type Severity Reaction Status Date / Time Sulfa Drugs Allergy Severe Hives Verified 08/10/16 08:27 Latex Allergy Rash Verified 08/10/16 08:27 Metoprolol Allergy extreme Verified 08/10/16 08:27 fatigue bees Allergy Anaphylatic Uncoded 08/10/16 08:27 Shock dust mite Allergy Unknown Uncoded 08/10/16 08:27 Reaction Details ENVIRONMENTAL Allergy Unknown Uncoded 08/10/16 08:27 Reaction Details PMH/Surg Hx/FS Hx/Imm Hx Previously Healthy: No Endocrine History: Diabetes, Dyslipidemia Cardiovascular History: Hypertension - Surgical History Surgical History: Yes Surgery Procedure, Year, and Place: 1988Hammer Toe Surgery Right Foot 1997 ; Right Knee Surgery, 2010, [facility] [place]; Fractured Left Shoulder, 1988 ; Hysterectomy, 1993 ; Breast ReductioN, 1985; Right Knee ArthroscopyX2, 1993, 2005, [facility] [place], eye surgery jun 29 2013 lid reduction.; Right Endartarectomy 2004, [place] ; VaricoseVein Surgery [place] Leg 2006, [place] [place], [place] [place]KR, [facility] [place],peg tube 07/2016. RIGHT carotid 2006 - Family History Known Family History: Positive: Unknown, Cardiac Disease - Social History Occupation: Retired Lives: With Family Alcohol Use: None Substance Use Type: None Smoking Status (MU): Never Smoked Tobacco - Immunization History Most Recent Influenza Vaccination: 2016 Most Recent Tetanus Shot: unk Most Recent Pneumonia Vaccination: 2006 Review of Systems Constitutional: Negative Skin: Other - oozing blood around g-tube site Eyes: Negative ENT: Negative Respiratory: Negative Cardiovascular: Negative Gastrointestinal: Negative Genitourinary: Negative Motor: Negative Neurovascular: Negative Musculoskeletal: Negative Neurological: Negative Psychological: Negative All Other Systems Reviewed And Are Negative: Yes Physical Exam Triage Information Reviewed: Yes Appearance: Well-Appearing, No Pain Distress, Well-Nourished Vital Signs: Initial Vital Signs Temp 98 F 11/24/16 12:09 Pulse 58 11/24/16 12:09 Resp 16 11/24/16 12:09 BP 116/49 11/24/16 12:09 Pulse Ox 100 11/24/16 12:09 Vital Signs Reviewed: Yes Eye Exam: Normal Eyes: Positive: Conjunctiva Clear ENT Exam: Normal ENT: Positive: Normal ENT inspection, Hearing grossly normal, Pharynx normal, TMs normal. Negative: Nasal congestion, Nasal drainage, Tonsillar swelling, Tonsillar exudate, Trismus, Muffled/hoarse voice Dental Exam: Normal Neck exam: Normal Neck: Positive: Supple, Nontender, No Lymphadenopathy Respiratory Exam: Normal Respiratory: Positive: Chest non-tender, No respiratory distress, No accessory muscle use Cardiovascular Exam: Normal Cardiovascular: Positive: RRR, Pulses Normal, Brisk Capillary Refill Abdominal Exam: Normal Abdomen Description: Positive: Nontender, No Organomegaly, Soft, Other: - some erroded mucosa around g-tube 6-8:00 scant oozing Bowel Sounds: Positive: Present Musculoskeletal Exam: Normal Musculoskeletal: Positive: Strength Intact, ROM Intact, No Edema Neurological Exam: Normal Neurological: Positive: Alert, Muscle Tone Normal Psychological Exam: Normal Skin Exam: Other Skin: Positive: Other - skin break down around g-tube site Re-Evaluation - Re-Evaluation First Eval Change: Improved - earl cleansing and complete drying, telfa placed to protect fragile skin--- Course/Dx - Course Course Of Treatment: earl soap and water wash , dressing between skin and flange to protect mucosa, follow with gi MD on Saturday, return for bleeding - Differential Dx - Multi-Symptom Differential Diagnoses: Sepsis, Other - errouded tissue Provider Diagnoses: skin irratation around g-tube site Discharge - Discharge Plan Condition: Stable Disposition: HOME Patient Education Materials: Abrasion (ED) Referrals: Justa New MD [Primary Care Provider] - If Needed
== END 2016-11-24 13:45 | disposition home or self-care (01) ==
LOC: UCEAST 11:54
DX: K94.29 Other complications of gastrostomy (principal); Y83.3 Surgical operation with formation of external stoma as the cause of abnormal reaction of the patient, or of later complication, without mention of misadventure at the time of the procedure; I10 Essential (primary) hypertension; Z88.2 Allergy status to sulfonamides; E11.9 Type 2 diabetes mellitus without complications; E78.5 Hyperlipidemia, unspecified
CPT/HCPCS: 99211; G0463

== ENCOUNTER 2018-07-24 09:52 | Emergency (ER) | payer MEDICARE ==
--- OUTSIDE RECORDS SUMMARY | 2018-07-24 09:59 | XMS REPORT | Continuity of Care Document ---
:1940 External Reference #:[id number] Author Name Vitaly Pablo M.D. Address [address] [place] [address] Care Team Providers Name Role Phone Shaq HYDE, Wendy Care Team Information Photography Spotter Unavailable Wendy New MD Primary Care Physician Unavailable Payers Date Identification Numbers Payment Provider Subscriber Effective: 2006 Policy Number: [id number] [place] Veronica Kimball PayID: [id number] [address] [place] [address] Effective: 2012 Policy Number: [id number] [facility] Veronica Kimball Options PayID: [id number] [address] [place] [address] Advance Directives Description No Information Available Problems Date Description Provider Status Onset: 05/27/2013 Type 2 diabetes mellitus Active Onset: 05/27/2013 Pure hypercholesterolemia Active Onset: 05/25/2014 Lens Replaced By Other Means Vitaly Pablo M.D. Active Onset: 07/13/2013 Status Post Surgery Vitaly Pablo M.D. Active Onset: 07/02/2013 Superficial punctate keratitis Sunny Arenas O.D. Active Onset: 05/27/2013 Excess skin of eyelid Sunny Arenas O.D. Active Family History Date Family Member(s) Observation Comments Father Cataract Father due to Natural Causes () Father Cancer Mother Diabetes Mother due to Natural Causes () Mother Heart Disease Mother High BP Mother CVA Social History Type Date Description Comments Sex Unknown ETOH Use Never used alcohol Tobacco Use Start: Unknown Patient has never smoked Smoking Status Reviewed: 07/24/18 Patient has never smoked Allergies, Adverse Reactions, Alerts Date Description Reaction Status Severity Comments 05/27/2013 Sulfacetamide Active 07/29/2015 Dust Mites Active 07/24/2018 Latex Active 07/24/2018 Environmental Active Medications Medication Date Status Form Strength Qnty SIG Indications Ordering Provider Crestor 00/ Active Tablets 20mg Unknown 0000 Advair HFA / Active Aerosol 45-21mcg/A Unknown 0000 ct Botox / Active Solution 200Unit Unknown 0000 Rec Invokana / Active Tablets 100mg Unknown 0000 Isosorbide / Active Tablets ER 30mg Unknown Mononitrate ER 0000 24HR Atenolol / Active Tablets 25mg Unknown 0000 Cyclobenzaprine / Active Tablets 5mg Unknown HCL 0000 Oxybutynin / Active Tablets ER 10mg Unknown Chloride ER 0000 24HR Aspir-Low / Active Tablets DR 81mg 1 by Unknown 0000 mouth every day Losartan Potassium / Hx Tablets 25mg Unknown 0000 - 2018 Immunizations Description No Information Available Vital Signs Date Vital Result Comment 07/24/2018 9:18am Intraocular Pressure Right Eye 16 mmHg Intraocular Pressure Left Eye 16 mmHg 10/12/2016 11:12am Intraocular Pressure Right Eye 17 mmHg Intraocular Pressure Left Eye 17 mmHg 07/29/2015 1:28pm Intraocular Pressure Right Eye 17 mmHg Intraocular Pressure Left Eye 17 mmHg 05/25/2014 1:20pm Intraocular Pressure Right Eye 18 mmHg Intraocular Pressure Left Eye 18 mmHg Results Description No Information Available Procedures Date Code Description Status 07/24/2018 11011 Ophthalmoscopy Subsequent Completed 07/24/2018 51415 Eye Exam Est Comprehensive Completed 10/12/2016 63535 Ophthalmoscopy Subsequent Completed 10/12/2016 20684 Refraction Completed 10/12/2016 52236 Eye Exam Est Comprehensive Completed 07/29/2015 25131 Eye Exam Est Intermediate Completed 05/25/2014 88198 Ophthalmoscopy Subsequent Completed 05/25/2014 44228 Eye Exam Est Comprehensive Completed 07/02/2013 58520 Eye Exam Est Intermediate Completed 06/29/2013 61486 Blepharoplasty Upper Eyelid Completed 05/27/2013 61850 Visual Field Exam Extended, Unilateral Or Bilateral Completed 05/27/2013 65237 Eye Exam Est Intermediate Completed Encounters Description No Information Available Plan of Treatment 07/24/2018 - Vitaly Pablo M.D.E11.9 Type 2 diabetes mellitus without [id number] Presence of intraocular lensFollow up:1 [id number] Vitreous degeneration, right eye
--- OUTSIDE RECORDS SUMMARY | 2018-07-24 10:00 | XMS REPORT | Continuity of Care Document ---
:1940 External Reference #:[id number] Author Name Clarita Thacker Care Team Providers Name Role Phone Justa New MD Primary Care Physician Unavailable Payers Date Identification Numbers Payment Provider Subscriber Policy Number: [id number] Medicare Stephanie Kimball PayID: [id number] [address] [place] [address] Expires: 2018 Policy Number: [id number] Medicare Stephanie Kimball PayID: [id number] [address] [place] [address] Effective: 2012 Policy Number: [facility] Stephanie Kimball [id number] PayID: [id number] [address] [place] [address] Advance Directives Description No Information Available Problems Date Description Provider Status Onset: 03/19/2010 Type 2 diabetes mellitus Justa New M.D. Active Onset: 03/19/2010 Benign essential hypertension Justa New M.D. Active Onset: 07/24/2013 Coronary atherosclerosis Nikos Ding M.D., Active JACKELYN GANN Onset: 09/04/2013 Coronary arteriosclerosis Nikos Ding M.D., Active JACKELYN GANN Onset: 08/30/2014 Carotid artery occlusion Nikos Ding M.D., Active JACKELYN GANN Onset: 09/05/2015 Chronic ischemic heart disease, Nikos Ding M.D., Active unspecified SANJUANITA, JACKELYN Onset: 07/17/2016 Dysphagia Justa New M.D. 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 Weather dependent Allergies, Adverse Reactions, Alerts Date Description Reaction Status Severity Comments 01/05/2010 Sulfa Urticaria Active Moderate 06/25/2013 Tape itching after 2-3 days Active 07/24/2013 Metoprolol severe fatigue Active 06/04/2014 Tramadol nausea Active 09/05/2015 Environmental Active Trees, dust mites, grass 07/17/2016 Metformin diarrhea Active 09/07/2016 Latex Active prolonged use Medications Medication Date Status Form Strength Qnty SIG Indications Ordering Provider Januvia 06/02 Active Tablets 100mg 90tab 1 by mouth E11.40 Justa /2018 s every day Patiecne New Atenolol 04/02 Active Tablets 25mg 36tab 1 by mouth Nikos Casillas s every misra Delgado M.D., [facility], [facility] Accu-Check Tran 08/01 Active Device 1unit For daily E11.40 Justa Glucose Monitor /2017 s use Dx Shaq, e11.65 M.D. Oxybutynin 10/24 Active Tablets 10mg 90tab Take 1 Justa Chloride ER 24HR s Tablet By Cotton, Mouth Every M.D. Day Advair Diskus Active Aerosol 100-50mcg 1 Unknown /0000 /Dose inhalation twice daily Ventolin HFA Active Aerosol 108(90Bas 2 puffs by Unknown /0000 e) mouth four mcg/Act times a day as needed Aspirin Active Tablets 81mg 1 by mouth Unknown /0000 DR every day through nasogastric tube Rosuvastatin Active Tablets 20mg 90tab 1 every day Justa Calcium s by mouth Patience New Botox Active Solution 200Unit volume Unknown 0000 Rec uncertian. 18-24 injections every 3 months Vitamin D3 Super Active Tablets 2000Unit 1 by mouth Unknown Strength /0000 every day by mouth Isosorbide Active Tablets 30mg 90tab 1 tab per Nikos Casillas Mononitrate ER ER 24HR s day Patience Ding, [facility], [facility] Accu-Chek Tran Active Strips 100un use as E11.40 Justa Plus /0000 its directed Shaq, once daily M.DReji dx e11.65, last office visit 02/18/17 Cyclobenzaprine Active Tablets 5mg Take One Unknown HCL /0000 Tablet By Mouth Twice A Day as Needed For Muscle Spasms Multi For Her Active Tablets once a day Unknown /0000 Crestor 12/24 Hx Tablets 20mg 90tab Take 1 Justa s Tablet Every Cotton, - Day Through M.D. 07/15 G- Tube Invokana 10/17 Hx Tablets 100mg 90tab 1 by mouth E11.40 Justa s every day Shaq, - before M.D. 06/02 breakfast Januvia 07/15 Hx Tablets 50mg 90tab 1 by mouth E11.40 Justa s every day Shaq, - M.D. 10/18 Cheratussin ac 07/15 Hx Syrup 100-10mg/ 120ml 5-10 I25.9 Justa 5ML milliliters Cotton, - by mouth M.D. 07/27 every 4 to hours as needed cough Doxycycline 07/08 Hx Tablets 100mg 14tab 1 tab by R05 s mouth twice Cotton, - a day for 7 M.D. Cheratussin ac 07/05 Hx Syrup 100-10mg/ 120ml 5-10 5ML milliliters Cotton, - by mouth M.D. 07/14 every 4 to hours as needed cough Atenolol 03/18 Hx Tablets 50mg 30tab 1/2 tab Nikos Casillas s every m- w- [place], - f M.D., 04/02 [facility] Azithromycin 09/07 Hx Tablets 250mg 6tabs two tabs day J20.9 Kanika /2017 one, one Varn, N.P. - daily till 09/17 Valacyclovir HCL 08/03 Hx Tablets 1gm 21tab 1 tablets B02.9 s every 8 Cotton, - hours for 7 M.D. 08/14 days via Peg tube. Tradjenta 07/27 Hx Tablets 5mg 30tab 1 by mouth s every day, Cotton, - crush and M.D. 10/18 take via Peg tube Nitro-Dur 07/18 Hx Patches 0.2mg/HR 30uni 1 patch Nikos 24HR ts every day on [place], - in the in M.D., 10/30 the morning, [facility] off in the [facility] at night Glucerna 1.2 Chacorta 07/16 Hx Liquid 1.2Cal 35uni 5-6 cans per ts day via NG Cotton, - tube M.D. 07/25 Cozaar 07/12 Hx Tablets 25mg 45tab /2 tabet Nikos Casillas s daily [place] - M.D., 11/05 [facility] Phenol 07/12 Hx Liquid 1,4% sorat 0 4 sprays to Cotton, - throat every M.D. 08/03 4 hours needed Nitro-Dur 07/12 Hx Patches 0.4mg/HR 90uni on Am and Nikos Casillas 24HR ts off PM Yamil Ding M.D., 07/18 [facility] Rosuvastatin 01/25 Hx Tablets 20mg 90tab 1 by mouth Justa Calcium s every day Yamil New M.D. 07/12 Losartan 01/25 Hx Tablets 25mg 45tab 1/2 by mouth Nikos Casillas Potassium s every day Yamil Ding M.D., 07/12 [facility] Invokana 06/06 Hx Tablets 100mg 1 by mouth Bridgette, every day MD Rose - before 07/12 breakfast Vitamin D High 06/06 Hx Capsules 1000Unit 1 by mouth Unknown Potency every day - 07/12 Cozaar 05/19 Hx Tablets 25mg 90tab 1 by mouth Nikos Casillas s every day Yamil Ding M.D., 01/25 [facility] Isosorbide 08/30 Hx Tablets 30mg 270ta 3 tablets by Nikos Casillas Mononitrate ER ER 24HR bs mouth every Ding, - day ie 90 mg M.D., 07/12 total per [facility]2016 [facility] Isosorbide 08/09 Hx Tablets 60mg 135ta 1 and 1/2 Nikos Casillas Mononitrate ER 24HR bs tabs by [place], - mouth every M.DReji, 08/30 day [facility] Tramadol HCL 05/07 Hx Tablets 50mg 120ta 1-2 tablets Justa /2014 bs every 6 Cotton, - hours as M.D. 06/04 Augmentin 01/29 Hx Tablets 875-125mg 14tab one by mouth s every 12 Cotton, - hours for 7 M.D. Atenolol 07/24 Hx Tablets 25mg 90tab 1 tablet by I25.10 Nikos Casillas s mouth saturday [place], - ,saturday,f M.DReji, 07/12 riday [facility] Imdur 07/23 Hx Tablets 30mg 1/2 po qd Nikos Casillas ER 24HR Yamil Ding M.D., 07/23 [facility] Imdur 11/18 Hx Tablets 60mg 135ta 1 and 1/2 by Nikos ER 24HR bs mouth every [place], - day M.DReji, 08/09 [facility] Imdur 10/21 Hx Tablets 30mg 90tab 1 po qd Nikos ER 24HR s Yamil Ding M.D., 11/18 [facility] Toprol XL 09/22 Hx Tablets 50mg 90tab 1 PO QHS Nikosjacqui Casillas ER 24HR s Yamil Ding M.D., 01/19 [facility] Amoxicillin 08/26 Hx Capsules 500mg 8caps 4 tabs 1 Dir hour before Yanet, - dental work M.D. 07/12 Oxybutynin 07/04 Hx Tablets 10mg 90tab Take 1 Justa Chloride ER 24HR s tablet by Cotton, - mouth every M.D. Azithromycin 06/13 Hx Tablets 250mg 6tabs two tabs day V70.0 one, one Varn, N.P. - daily till 06/23 Irbesartan 06/13 Hx Tablets 75mg 90tab Take 1 s tablet by Cotton, - mouth daily M.D. 05/19 Mupirocin 03/24 Hx Ointment 2% 22gm apply once 680.9 daily to Varn, N.P. - area until 03/31 Aspirin 03/03 Hx Tablets 81mg 1 po qd Yamil New M.D. 07/12 Meclizine HCL 11/25 Hx Tablets 25mg 30tab 1 tablet 386.11 s three times Arline, - a day as Patience [facility] 07/27 Azithromycin 07/31 Hx Tablets 250mg 6tabs two tabs day 382.9 one, one Shaq, - daily till M.D. 08/10 Diclofenac 05/15 Hx Tablets 50mg 180ta 1 tablet po Justa Sodium bs daily Yamil New M.D. 06/10 Amoxicillin 05/03 Hx Capsules 500mg 8caps 4 tabs 1 Dir hour before Yanet, - dental work M.D. 01/19 Coumadin 01/29 Hx Tablets 2.5mg 90tab take 2-3 as [address] s directed at [facility], - 5pm daily M.D. 01/30 Percocet 01/29 Hx Tablets 5-325mg 90tab 1-2 tabs po Dir s q4-6 prn Yanet, - pain M.D. 01/30 Hydrocortisone 04/07 Hx Cream 2.5% 30gm apply to 782.1 affected [place], - area twice M.D. 08/03 Actos 12/26 Hx Tablets 45mg 90tab 1 by mouth Justa s once daily Shaq, - M.D. 08/03 Crestor 12/26 Hx Tablets 20mg 90tab Take 1 Justa s tablet by Cotton, - mouth every M.D. Diovan 10/20 Hx Tablets 40mg 30tab Take One s Tablet By Cotton, - Mouth Once M.D. 06/13 Aspir-81 Hx Tablets 81mg 1 by mouth Justa /0000 DR daily Shaq, - M.D. 01/30 Advair Diskus Hx Aerosol 100-50mcg 1unit 1 inhalation Justa /0000 /Dose s daily in [place], - morning M.D. 06/25 Januvia Hx Tablets 100mg 30tab 1 by mouth Justa /0000 s daily [place], - M.D. 07/12 Citracal/Vitamin Hx Tablets 500mg 60tab 1 by mouth Justa D /0000 s once a wk Shaq, - M.D. 06/13 Womens One Daily Hx Tablets 1 by mouth Justa /0000 daily Shaq - M.DReji 11/25 Diclofenac Hx Tablets 50mg 180ta Take 1 Justa Sodium Ec [address] reddy Tablet Twice Shaq, - A Day M.D. 01/30 Aspir-81 Hx Tablets 81mg 100ta 1 po qd Unknown /0000 DR reddy - 03/03 Detrol LA 00/00 Hx Caps ER 4mg 30cap Take 1 Justa /0000 24HR s Capsule Cotton, - Daily M.D. 03/03 Detrol LA 00/00 Hx Caps ER 4mg 90cap Take 1 Justa /0000 24HR s Capsule Cotton, - Daily M.D. 07/04 Citracal 00/00 Hx Tablets 600-40-50 3 x week Unknown Calcium+D Slow /0000 ER 24HR 0mg-mg-Un Release - it 07/27 Flovent Diskus / Hx Aerosol 100mcg/Bl 60uni 1 puff qd Unknown /0000 ist ts - 08/29 Botox Hx Solution 100Units inject 175 Unknown /0000 Rec units into - the muslce 07/12 every months Centrum Silver Hx Tablets 30tab 1/2 tablet Unknown /0000 s po daily - 06/10 Zofran Hx Tablets 4mg 60tab 1 q 6 hours Unknown /0000 s prn nausea - 09/16 Stool Softener 00 Hx 1 gel cap po Unknown /0000 bid. Am/PM - 06/10 Clotrimazole Hx Lozenges 10mg Unknown /0000 - 09/03 Diclofenac 00 Hx Tablets 50mg Take 1 Unknown Potassium /0000 tablet po - daily as 07/12 needed for days prior to Botox injections Penicillin V 00 Hx Tablets 500mg Unknown Potassium /0000 - 09/03 Pioglitazone HCL 00 Hx Tablets 15mg 1 by mouth Bridgette, /0000 every day MD Rose - 03/20 Atenolol 00 Hx Tablets 25mg 45tab 1 by mouth Nikos Casillas /0000 s jet lanier f Singh, - M.D., 03/18 [facility] Invokana 00 Hx Tablets 100mg 90tab 1 by mouth Justa /0000 s every day Shaq, - before M.D. 09/09 Oxybutynin 0000 Hx Tablets 10mg 1 daily Unknown Chloride ER /0000 ER 24HR through - nasal 07/17 gastric tube Acetaminophen 0000 Hx Tablets 325mg 1 tablet as Unknown /0000 needed for - pain 08/03 Jevity 1.5 Chacorta Hx Liquid 5 cans/day Unknown /0000 as - instructed 02/18 Diclofenac Hx Tablets 50mg 1 tab for 3 Unknown Sodium /0000 DR days before - Botox 01/15 injections Medications Administered in Office Medication Date Status Form Strength Qnty SIG Indications Ordering Provider Inj, Administered Injection Nikos Vinny Regadenoson, 019 Ding, 0.1 MG Patience, SANJUANITA, [facility] Technetium TC Administered Injection Nikos Casillas 99M 019 Vj Ding M.D., FACC, Per Unit Dose [facility]AS[facility] Up To 40 Millicuries Inj, Administered Injection Arsalan DReji Regadenoson, 015 Patience Quiñonez 0.1 MG Technetium TC Administered Injection Arsalan DReji 99M 015 Patience Quiñonez Tetrofosmin, Per Unit Dose Up To 40 Millicuries Depomedrol Administered Injection Niall 40MG 013 Patience Valderrama Technetium TC Administered Injection Nikos Casillas 99M 013 Vj Ding M.D., FACC, Per Unit Dose FASNC Up To 40 Millicuries Celestone 3 mg Administered Injection Joy and 3mg 013 Checo hoang M.D. Celestone 3 mg Administered Injection Joy and 3mg 013 Checo hoang M.D. Depomedrol Administered Injection Dirk Yanet, 40MG 010 M.DReji Depomedrol Administered Injection Tsang, Lien, 40MG 009 PA Immunizations CPT Code Status Date Vaccine Reaction Lot # [id number] Given 03/18/2018 Influenza Virus Vaccine, Quadrivalent, Split, Preservative Free 99684 Given 03/19/2016 Influ Virus Vaccine, no immediate reaction [id number] Quadrivalent, Split Virus, noted .. [place] [address] Given 05/05/2014 Pneumococcal Conjugate [id number] Vaccine 13 Valent For Intramuscular Use 86108 Given 03/30/2014 Flu Vaccine Split Virus [id number] Preservative Free For Indiv 3Yr Older 15792 Given 03/06/2013 Flu Vaccine Split Virus [id number] Preservative Free For Indiv 3Yr Older 77829 Given 06/13/2012 Tdap - [id number] Tetanus/Diptheria/Acellular Pertussis Q2037 Given 02/23/2012 Fluvirin Im 3Yrs And Older [id number] 21033 Given 04/04/2007 Zoster (Zostavax) 58183 Given 04/04/2007 Zoster (Zostavax) 54683 Given 04/29/2006 Influenza Virus 3Yrs & Over 68114 Given 04/29/2006 Influenza Virus 3Yrs & Over 48975 Given 12/18/2000 Td Toxoids Adsorbed For Use 7Yrs Or Older For Intramuscular Use Vital Signs Date Vital Result Comment 07/16/2018 11:22am Height 65 inches 5'5" Weight 144.00 lb no shoes Heart Rate 72 /min BP Systolic Sitting 120 mmHg lue reg cuff BP Diastolic Sitting 64 mmHg lue reg cuff BP Systolic Standing 118 mmHg lue reg cuff BP Diastolic Standing 64 mmHg lue reg cuff Respiratory Rate 18 /min BMI (Body Mass Index) 24.0 kg/m2 Ejection Fraction 55-60% echo. 06/04/14 06/02/2018 3:12pm Height 65 inches 5'5" Weight 141.25 lb Heart Rate 79 /min BP Systolic 130 mmHg BP Diastolic 82 mmHg Body Temperature 98.9 F O2 % BldC Oximetry 98 % BMI (Body Mass Index) 23.5 kg/m2 01/16/2018 2:23pm Height 65 inches 5'5" Weight 137.00 lb Heart Rate 68 /min BP Systolic Sitting 106 mmHg BP Diastolic Sitting 58 mmHg O2 % BldC Oximetry 97 % BMI (Body Mass Index) 22.8 kg/m2 10/17/2017 1:41pm Height 65 inches 5'5" Weight 135.00 lb Heart Rate 65 /min BP Systolic Sitting 93 mmHg BP Diastolic Sitting 56 mmHg Body Temperature 98.1 F O2 % BldC Oximetry 99 % BMI (Body Mass Index) 22.5 kg/m2 09/17/2017 1:32pm Height 65 inches 5'5" Weight 138.25 lb Heart Rate 68 /min BP Systolic Sitting 106 mmHg lue reg cuff BP Diastolic Sitting 48 mmHg lue reg cuff BP Systolic Standing 86 mmHg lue reg cuff BP Diastolic Standing 40 mmHg lue reg cuff Respiratory Rate 16 /min BMI (Body Mass Index) 23.0 kg/m2 Ejection Fraction 55-65% 06/04/2014 echo 09/09/2017 4:54pm Weight 134.75 lb Heart Rate 80 /min BP Systolic 120 mmHg BP Diastolic 68 mmHg Body Temperature 98.0 F O2 % BldC Oximetry 98 % 08/01/2017 7:48am Weight 136.00 lb Heart Rate 57 /min BP Systolic Sitting 110 mmHg BP Diastolic Sitting 70 mmHg O2 % BldC Oximetry 98 % 07/16/2017 2:16pm Height 66 inches 5'6" Weight 135.00 lb report this Am bu pt Heart Rate 68 /min BP Systolic Sitting 94 mmHg BP Diastolic Sitting 58 mmHg Respiratory Rate 14 /min BMI (Body Mass Index) 21.8 kg/m2 07/15/2017 1:04pm Weight 138.00 lb Heart Rate 78 /min BP Systolic Sitting 118 mmHg BP Diastolic Sitting 58 mmHg O2 % BldC Oximetry 94 % 07/08/2017 12:50pm Weight 139.75 lb Heart Rate 73 /min BP Systolic 114 mmHg BP Diastolic 64 mmHg Body Temperature 98.8 F O2 % BldC Oximetry 94 % 05/07/2017 12:50pm Height 66 inches 5'6" Weight 145.00 lb no shoes Heart Rate 62 /min BP Systolic Sitting 88 mmHg Lue reg cuff BP Diastolic Sitting 54 mmHg Lue reg cuff BP Systolic Recheck 118 mmHg left BP Diastolic Recheck 66 mmHg left Respiratory Rate 16 /min O2 % BldC Oximetry 97 % On Ra BMI (Body Mass Index) 23.4 kg/m2 02/18/2017 10:49am Weight 142.50 lb Heart Rate 78 /min BP Systolic 140 mmHg BP Diastolic 82 mmHg O2 % BldC Oximetry 98 % 10/18/2016 2:13pm Weight 146.00 lb Heart Rate 71 /min BP Systolic Sitting 118 mmHg BP Diastolic Sitting 72 mmHg O2 % BldC Oximetry 96 % 09/19/2016 11:16am Height 65 inches 5'5" Weight 150.50 lb no shoes Heart Rate 70 /min BP Systolic Sitting 120 mmHg Lue reg cuff BP Diastolic Sitting 66 mmHg Lue reg cuff BP Systolic Standing 118 mmHg Lue reg cuff BP Diastolic Standing 68 mmHg Lue reg cuff Respiratory Rate 17 /min BMI (Body Mass Index) 25.0 kg/m2 Ejection Fraction 55-60% 06/04/2014-echo 09/07/2016 1:04pm Weight 150.00 lb Heart Rate 72 /min BP Systolic 112 mmHg BP Diastolic 58 mmHg Body Temperature 97.7 F O2 % BldC Oximetry 96 % 08/14/2016 2:39pm Height 65 inches 5'5" Weight 152.00 lb Heart Rate 80 /min BP Systolic 116 mmHg BP Diastolic 66 mmHg O2 % BldC Oximetry 95 % BMI (Body Mass Index) 25.3 kg/m2 08/03/2016 9:09am Weight 154.00 lb Heart Rate 56 /min BP Systolic 130 mmHg BP Diastolic 80 mmHg Body Temperature 98.0 F O2 % BldC Oximetry 96 % 07/17/2016 10:45am Weight 158.00 lb Heart Rate 69 /min BP Systolic Sitting 138 mmHg BP Diastolic Sitting 88 mmHg Body Temperature 99.2 F O2 % BldC Oximetry 95 % 04/30/2016 11:35am Height 66 inches 5'6" Weight 168.00 lb Heart Rate 60 /min BP Systolic 128 mmHg BP Diastolic 64 mmHg Respiratory Rate 14 /min O2 % BldC Oximetry 96 % BMI (Body Mass Index) 27.1 kg/m2 01/26/2016 11:51am Weight 174.00 lb Heart Rate 85 /min BP Systolic Sitting 100 mmHg BP Diastolic Sitting 44 mmHg O2 % BldC Oximetry 96 % 09/05/2015 11:07am Height 65.25 inches 5'5.25" Weight 170.31 lb no shoes Heart Rate 76 /min BP Systolic Sitting 124 mmHg LA lrg cuff BP Diastolic Sitting 66 mmHg LA lrg cuff BP Systolic Standing 126 mmHg LA lrg cuff BP Diastolic Standing 60 mmHg LA lrg cuff Respiratory Rate 16 /min BMI (Body Mass Index) 28.1 kg/m2 Ejection Fraction 55-60% 06/04/14 07/26/2015 2:52pm Height 65.25 inches 5'5.25" Weight 169.00 lb Heart Rate 65 /min BP Systolic Sitting 140 mmHg BP Diastolic Sitting 72 mmHg O2 % BldC Oximetry 96 % BMI (Body Mass Index) 27.9 kg/m2 06/07/2015 8:28am Height 66.5 inches 5'6.50" Weight 174.00 lb Heart Rate 56 /min BP Systolic 56 mmHg BP Systolic Sitting 138 mmHg BP Diastolic Sitting 78 mmHg Respiratory Rate 14 /min O2 % BldC Oximetry 98 % BMI (Body Mass Index) 27.7 kg/m2 01/31/2015 11:07am Weight 179.50 lb Heart Rate 68 /min BP Systolic Sitting 143 mmHg BP Diastolic Sitting 71 mmHg Body Temperature 97.2 F 08/30/2014 11:14am Height 65.5 inches 5'5.50" Weight 182.38 lb Heart Rate 76 /min BP Systolic Sitting 158 mmHg LA, reg cuff BP Diastolic Sitting 70 mmHg LA, reg cuff BP Systolic Standing 138 mmHg LA, reg cuff BP Diastolic Standing 68 mmHg LA, reg cuff Respiratory Rate 18 /min BMI (Body Mass Index) 29.9 kg/m2 06/21/2014 11:22am Height 65.5 inches 5'5.50" Weight 179.00 lb with shoes Heart Rate 70 /min BP Systolic Sitting 140 mmHg LA reg cuff BP Diastolic Sitting 72 mmHg LA reg cuff BP Systolic Standing 132 mmHg LA reg cuff BP Diastolic Standing 74 mmHg LA reg cuff Respiratory Rate 17 /min BMI (Body Mass Index) 29.3 kg/m2 06/11/2014 2:31pm Height 65.5 inches 5'5.50" Weight 181.00 lb Heart Rate 65 /min BP Systolic Standing 128 mmHg BP Diastolic Standing 72 mmHg Respiratory Rate 18 /min Body Temperature 97.0 F O2 % BldC Oximetry 98 % BMI (Body Mass Index) 29.7 kg/m2 04/21/2014 11:09am Height 66.5 inches 5'6.50" Weight 179.00 lb Heart Rate 74 /min BP Systolic 122 mmHg BP Diastolic 64 mmHg Body Temperature 97.6 F BMI (Body Mass Index) 28.5 kg/m2 12/25/2013 12:21pm Height 66.5 inches 5'6.50" Weight 185.00 lb Heart Rate 62 /min BP Systolic 118 mmHg BP Diastolic 73 mmHg BMI (Body Mass Index) 29.4 kg/m2 11/27/2013 2:02pm Height 66 inches 5'6" Heart Rate 73 /min BP Systolic 104 mmHg BP Diastolic 63 mmHg 11/18/2013 8:54am Weight 188.00 lb Heart Rate 76 /min BP Systolic Sitting 146 mmHg BP Diastolic Sitting 80 mmHg 11/13/2013 9:55am Height 66 inches 5'6" Weight 185.00 lb Body Temperature 97.2 F BMI (Body Mass Index) 29.9 kg/m2 10/21/2013 1:33pm Height 68 inches 5'8" Weight 188.00 lb Heart Rate 67 /min BP Systolic 123 mmHg BP Diastolic 68 mmHg BMI (Body Mass Index) 28.6 kg/m2 10/19/2013 10:50am Height 66 inches 5'6" Weight 189.00 lb without shoes Heart Rate 68 /min BP Systolic Sitting 130 mmHg LA lg cuff BP Diastolic Sitting 68 mmHg LA lg cuff BP Systolic Standing 128 mmHg LA lg cuff BP Diastolic Standing 66 mmHg LA lg cuff Respiratory Rate 16 /min BMI (Body Mass Index) 30.5 kg/m2 10/16/2013 11:29am Height 66 inches 5'6" Weight 190.00 lb Heart Rate 66 /min BP Systolic Sitting 108 mmHg 118/64 on the left BP Diastolic Sitting 68 mmHg 118/64 on the left Body Temperature 98.6 F O2 % BldC Oximetry 97 % 96- walking BMI (Body Mass Index) 30.7 kg/m2 09/17/2013 1:51pm Height 66 inches 5'6" Weight 188.00 lb Heart Rate 68 /min BP Systolic 98 mmHg BP Diastolic 59 mmHg BMI (Body Mass Index) 30.3 kg/m2 09/04/2013 11:40am Height 66 inches 5'6" Weight 188.00 lb without shoes Heart Rate 60 /min BP Systolic Sitting 120 mmHg Ra reg cuff BP Diastolic Sitting 70 mmHg Ra reg cuff BP Systolic Standing 108 mmHg Ra reg cuff BP Diastolic Standing 70 mmHg Ra reg cuff Respiratory Rate 16 /min BMI (Body Mass Index) 30.3 kg/m2 07/27/2013 4:23pm Weight 186.00 lb Heart Rate 80 /min BP Systolic Sitting 126 mmHg lg cuff BP Diastolic Sitting 80 mmHg lg cuff BP Systolic Standing 100 mmHg BP Diastolic Standing 60 mmHg BP Systolic Lying Down 100 mmHg BP Diastolic Lying Down 58 mmHg Body Temperature 99.0 F 07/24/2013 11:15am Height 66.5 inches 5'6.50" Weight 191.00 lb without shoes 1 lb gain since last ov 01/12/13 Heart Rate 76 /min sit and HR reg BP Systolic 120 mmHg Ra reg cuff BP Diastolic 64 mmHg Ra reg cuff BP Systolic Sitting 120 mmHg LA reg cuff BP Diastolic Sitting 70 mmHg LA reg cuff BP Systolic Standing 120 mmHg LA reg cuff BP Diastolic Standing 62 mmHg LA reg cuff Respiratory Rate 17 /min BMI (Body Mass Index) 30.4 kg/m2 06/25/2013 9:53am Height 66.5 inches 5'6.50" Weight 190.75 lb Heart Rate 76 /min BP Systolic 142 mmHg left BP Diastolic 70 mmHg left BP Systolic Sitting 146 mmHg right BP Diastolic Sitting 70 mmHg right O2 % BldC Oximetry 95 % BMI (Body Mass Index) 30.3 kg/m2 02/20/2013 2:49pm Heart Rate 66 /min BP Systolic 107 mmHg BP Diastolic 58 mmHg 12/12/2012 11:47am Weight 190.00 lb Heart Rate 64 /min BP Systolic Sitting 130 mmHg right-118/68 BP Diastolic Sitting 68 mmHg right-118/68 BP Systolic Standing 110 mmHg left BP Diastolic Standing 60 mmHg left BP Systolic Recheck 120 mmHg left BP Diastolic Recheck 60 mmHg left 06/13/2012 1:56pm Height 66.25 inches 5'6.25" Weight 186.00 lb Heart Rate 72 /min BP Systolic Sitting 142 mmHg BP Diastolic Sitting 74 mmHg BP Systolic Recheck 128 mmHg BP Diastolic Recheck 70 mmHg BMI (Body Mass Index) 29.8 kg/m2 03/24/2012 11:45am Height 66 inches 5'6" Weight 186.00 lb Heart Rate 72 /min BP Systolic Sitting 136 mmHg BP Diastolic Sitting 78 mmHg BMI (Body Mass Index) 30.0 kg/m2 11/26/2011 10:28am Height 66 inches 5'6" Weight 184.25 lb Heart Rate 64 /min BP Systolic Sitting 130 mmHg BP Diastolic Sitting 60 mmHg Body Temperature 97.6 F BMI (Body Mass Index) 29.7 kg/m2 08/28/2011 1:54pm Height 66 inches 5'6" Weight 183.00 lb Heart Rate 64 /min BP Systolic Sitting 126 mmHg BP Diastolic Sitting 74 mmHg BMI (Body Mass Index) 29.5 kg/m2 08/01/2011 4:33pm Height 66 inches 5'6" Weight 182.00 lb Heart Rate 64 /min BP Systolic Sitting 112 mmHg BP Diastolic Sitting 58 mmHg Body Temperature 98.3 F BMI (Body Mass Index) 29.4 kg/m2 01/30/2011 4:10pm Height 66 inches 5'6" Weight 184.00 lb Heart Rate 66 /min BP Systolic Sitting 130 mmHg BP Diastolic Sitting 78 mmHg BMI (Body Mass Index) 29.7 kg/m2 08/03/2010 9:51am Weight 192.50 lb Heart Rate 76 /min BP Systolic 130 mmHg BP Diastolic 62 mmHg 04/07/2010 2:25pm Weight 200.50 lb Heart Rate 80 /min BP Systolic 130 mmHg BP Diastolic 64 mmHg 01/06/2010 6:53pm Weight 200.25 lb Heart Rate 80 /min BP Systolic 130 mmHg BP Diastolic 70 mmHg Results Test Date Facility Test Result H/L Range Note Celiac Panel 05/01/2018 [facility] Tissue <1.2 U/mL [address] [place] [address] Ab [phone] Immunoglobulin A 256 mg/dL 61 - 356 Celiac Interpretation See Comment 2 CBC Auto Diff 05/01/2018 [facility] White Blood 4.5 10^3/uL N 3.5-10.[address] [place] [address] [phone] Red Blood Count 4.13 10^6/uL N 4.00-5.40 Hemoglobin 12.7 g/dL N 12.0-16.0 Hematocrit 38 % N 35-47 Mean Corpuscular Volume 92 fL N 80-97 Mean Corpuscular Hemoglobin 31 pg N 27-31 Mean Corpuscular HGB Conc 33 g/dL N 31-36 Red Cell Distribution Width 15 % N 10.5-15 Platelet Count 160 10^3/uL N 150-450 Mean Platelet Volume 7.8 fL N 7.4-10.4 Abs Neutrophils 2.3 10^3/uL N 1.5-7.7 Abs Lymphocytes 1.4 10^3/uL N 1.0-4.8 Abs Monocytes 0.5 10^3/uL N 0-0.8 Abs Eosinophils 0.3 10^3/uL N 0-0.6 Abs Basophils 0.1 10^3/uL N 0-0.2 Abs Nucleated RBC 0 10^3/uL Granulocyte % 50.9 % Lymphocyte % 30.8 % Monocyte % 10.3 % Eosinophil % 6.8 % Basophil % 1.2 % Nucleated Red Blood Cells % 0 Comp Metabolic Panel 05/01/2018 [facility] Sodium 142 mmol/L N 135-[address] [place] [address] [phone] Potassium 4.6 mmol/L N 3.5-5.0 Chloride 108 mmol/L N 101-111 Co2 Carbon Dioxide 29 mmol/L N 22-32 Anion Gap 5 mmol/L N 2-11 Glucose 142 mg/dL High 70-100 Blood Urea Nitrogen 21 mg/dL N 6-24 Creatinine 1.13 mg/dL High 0.51-0.95 BUN/Creatinine Ratio 18.6 N 8-20 Calcium 10.1 mg/dL N 8.6-10.3 Total Protein 6.8 g/dL N 6.4-8.9 Albumin 4.1 g/dL N 3.2-5.2 Globulin 2.7 g/dL N 2-4 Albumin/Globulin Ratio 1.5 N 1-3 Total Bilirubin 0.60 mg/dL N 0.2-1.0 Alkaline Phosphatase 55 U/L N 34-104 Alt 16 U/L N 7-52 Ast 20 U/L N 13-39 Egfr Non- 46.7 >60 Egfr 56.5 >60 3 Laboratory test 05/01/2018 [facility] Hemoglobin A1c 7.9 % High 4.0-5.6 [address] (Glyco HGB) [place] [address] [phone] Laboratory test 01/16/2018 [facility] Hemoglobin A1c 7.0 5-7 finding Laboratory test 12/17/2017 [facility] Point of Care 88 mg/dL N 70-100 [address] [place] [address] [phone] Laboratory test 12/17/2017 [facility] Surgical SEE 6, [address] [place] [address] BELOW [phone] Laboratory test 10/17/2017 [facility] Hemoglobin A1c 7.3 High 5-7 finding Laboratory test 09/30/2017 [facility] C Difficile PCR SEE 8 , [address] [place] [address] BELOW [phone] Laboratory test 09/28/2017 [facility] Stool Culture SEE [address] [place] [address] BELOW [phone] Laboratory test 07/15/2017 [facility] Glucose Blood <pending> finding Laboratory test 07/10/2017 [facility] Hemoglobin A1c 8.6 % High 4.0-5.6 [address] (Glyco HGB) [place], [place] [id number] [phone] Urine 07/10/2017 [facility] Ur Microalbumin 15.8 mg/L Microalbumin [address] (mg/L) [place] [address] [phone] Urine Creatinine 109.55 mg/dL Urine Microalbumin/Creatinine 14.4 ug/mg N <31 Comp Metabolic Panel 07/10/2017 [facility] Sodium 137 mmol/L N 133-[address] [place] [address] [phone] Potassium 4.3 mmol/L N 3.5-5.0 Chloride 104 mmol/L N 101-111 Co2 Carbon Dioxide 30 mmol/L N 22-32 Anion Gap 3 mmol/L N 2-11 Glucose 128 mg/dL High 70-100 Blood Urea Nitrogen 23 mg/dL N 6-24 Creatinine 1.27 mg/dL High 0.51-0.95 BUN/Creatinine Ratio 18.1 N 8-20 Calcium 9.8 mg/dL N 8.6-10.3 Total Protein 6.5 g/dL N 6.4-8.9 Albumin 3.6 g/dL N 3.2-5.2 Globulin 2.9 g/dL N 2-4 Albumin/Globulin Ratio 1.2 N 1-3 Total Bilirubin 0.50 mg/dL N 0.2-1.0 Alkaline Phosphatase 49 U/L N 34-104 Alt 15 U/L N 7-52 Ast 21 U/L N 13-39 Egfr Non- 40.9 >60 Egfr 52.6 >60 12 Lipid Profile 07/10/2017 [facility] Triglycerides 73 mg/dL 13 (Trig/Chol/HDL) [address] [place] [address] [phone] Cholesterol 108 mg/dL 14 HDL Cholesterol 37.8 mg/dL 15 LDL Cholesterol 56 mg/dL 16 Laboratory test 02/18/2017 [facility] Hemoglobin A1c 7.4 High 5-7 finding Laboratory test 10/18/2016 [facility] Hemoglobin A1c 7.4 High 5-7 finding Urine Microalbumin 08/08/2016 [facility] Urine Creatinine 97.43 mg/dL N Random [address] [place] [address] [phone] Ur Microalbumin (mg/L) 25.8 mg/L N Urine Microalbumin/Creatinine 26.4 ug/mg N <31 Comp Metabolic Panel 08/08/2016 [facility] Sodium 137 mmol/L N 133-[address] [place] [address] [phone] Potassium 4.3 mmol/L N 3.5-5.0 Chloride 101 mmol/L N 101-111 Co2 Carbon Dioxide 28 mmol/L N 22-32 Anion Gap 8 mmol/L N 2-11 Glucose 174 mg/dL High 70-100 Blood Urea Nitrogen 27 mg/dL High 6-24 Creatinine 1.00 mg/dL High 0.51-0.95 BUN/Creatinine Ratio 27.0 High 8-20 Calcium 10.2 mg/dL N 8.6-10.3 Total Protein 6.9 g/dL N 6.4-8.9 Albumin 4.0 g/dL N 3.2-5.2 Globulin 2.9 g/dL N 2-4 Albumin/Globulin Ratio 1.4 N 1-3 Total Bilirubin 0.60 mg/dL N 0.2-1.0 Alkaline Phosphatase 48 U/L N 34-104 Alt 12 U/L N 7-52 Ast 15 U/L N 13-39 Egfr Non- 54.1 N >60 Egfr 69.5 N >60 17 Lipid Profile 08/08/2016 [facility] Triglycerides 133 mg/dL N 18 (Trig/Chol/HDL) [address] [place] [address] [phone] Cholesterol 121 mg/dL N 19 HDL Cholesterol 44.6 mg/dL N 20 LDL Cholesterol 50 mg/dL N 21 Laboratory test 07/23/2016 [facility] Point of Care 172 mg/dL High 74-106 [address] [place] [address] [phone] Laboratory test 07/17/2016 [facility] Hemoglobin A1c 7.8 High 5-7 finding Comp Metabolic 07/13/2016 [facility] Sodium 137 N 133-[address] mmol/[place] [address] [phone] Potassium 4.6 mmol/L N 3.5-5.0 Chloride 100 mmol/L Low 101-111 Co2 Carbon Dioxide 29 mmol/L N 22-32 Anion Gap 8 mmol/L N 2-11 Glucose 237 mg/dL High 70-100 Blood Urea Nitrogen 33 mg/dL High 6-24 Creatinine 1.17 mg/dL High 0.51-0.95 BUN/Creatinine Ratio 28.2 High 8-20 Calcium 10.1 mg/dL N 8.6-10.3 Total Protein 7.0 g/dL N 6.4-8.9 Albumin 3.9 g/dL N 3.2-5.2 Globulin 3.1 g/dL N 2-4 Albumin/Globulin Ratio 1.3 N 1-3 Total Bilirubin 0.70 mg/dL N 0.2-1.0 Alkaline Phosphatase 63 U/L N 34-104 Alt 18 U/L N 7-52 Ast 19 U/L N 13-39 Egfr Non- 45.1 N >60 Egfr 58.0 N >60 23 CBC Auto Diff 07/13/2016 [facility] White Blood 6.3 10^3/uL N 3.5-10.[address] [place] [address] [phone] Red Blood Count 4.45 10^6/uL N 4.0-5.4 Hemoglobin 13.6 g/dL N 12.0-16.0 Hematocrit 41 % N 35-47 Mean Corpuscular Volume 91 fL N 80-97 Mean Corpuscular Hemoglobin 31 pg N 27-31 Mean Corpuscular HGB Conc 34 g/dL N 31-36 Red Cell Distribution Width 14 % N 10.5-15 Platelet Count 160 10^3/uL N 150-450 Mean Platelet Volume 9 um3 N 7.4-10.4 Abs Neutrophils 4.5 10^3/uL N 1.5-7.7 Abs Lymphocytes 0.9 10^3/uL Low 1.0-4.8 Abs Monocytes 0.7 10^3/uL N 0-0.8 Abs Eosinophils 0.2 10^3/uL N 0-0.6 Abs Basophils 0.1 10^3/uL N 0-0.2 Abs Nucleated RBC 0 10^3/uL N Granulocyte % 70.9 % N 38-83 Lymphocyte % 14.6 % Low 25-47 Monocyte % 10.9 % High 1-9 Eosinophil % 2.6 % N 0-6 Basophil % 1.0 % N 0-2 Nucleated Red Blood Cells % 0 N CBC No Diff 07/02/2016 [facility] White Blood 5.8 10^3/uL N 3.5-10.[address] [place] [address] [phone] Red Blood Count 4.32 10^6/uL N 4.0-5.4 Hemoglobin 13.0 g/dL N 12.0-16.0 Hematocrit 40 % N 35-47 Mean Corpuscular Volume 92 fL N 80-97 Mean Corpuscular Hemoglobin 30 pg N 27-31 Mean Corpuscular HGB Conc 33 g/dL N 31-36 Red Cell Distribution Width 15 % N 10.5-15 Platelet Count 156 10^3/uL N 150-450 Mean Platelet Volume 8 um3 N 7.4-10.4 Basic Metabolic Panel 07/02/2016 [facility] Sodium 138 mmol/L N 133-145 [address] [place] [address] [phone] Potassium 4.4 mmol/L N 3.5-5.0 Chloride 104 mmol/L N 101-111 Co2 Carbon Dioxide 24 mmol/L N 22-32 Anion Gap 10 mmol/L N 2-11 Glucose 125 mg/dL High 70-100 Blood Urea Nitrogen 28 mg/dL High 6-24 Creatinine 1.38 mg/dL High 0.51-0.95 BUN/Creatinine Ratio 20.3 High 8-20 Calcium 10.6 mg/dL High 8.6-10.3 Egfr Non- 37.3 N >60 Egfr 47.9 N >60 24 Basic Metabolic Panel 07/28/2015 [facility] Sodium 139 mmol/L N 133-[address] [place] [address] [phone] Potassium 4.5 mmol/L N 3.5-5.0 Chloride 107 mmol/L N 101-111 Co2 Carbon Dioxide 26 mmol/L N 22-32 Anion Gap 6 mmol/L N 2-11 Glucose 159 mg/dL High 70-100 Blood Urea Nitrogen 24 mg/dL N 6-24 Creatinine 1.20 mg/dL High 0.51-0.95 BUN/Creatinine Ratio 20.0 N 8-20 Calcium 9.8 mg/dL N 8.6-10.3 Egfr Non- 43.9 N >60 Egfr 56.5 N >60 25 Lipid Profile 05/23/2015 [facility] Triglycerides 125 mg/dL N 26 (Trig/Chol/HDL) [address] [place] [address] [phone] Cholesterol 136 mg/dL N 27 HDL Cholesterol 49.3 mg/dL N 28 LDL Cholesterol 62 mg/dL N 29 Comp Metabolic Panel 05/23/2015 [facility] Sodium 138 mmol/L N 133-[address] [place] [address] [phone] Potassium 4.5 mmol/L N 3.5-5.0 Chloride 105 mmol/L N 101-111 Co2 Carbon Dioxide 27 mmol/L N 22-32 Anion Gap 6 mmol/L N 2-11 Glucose 147 mg/dL High 70-100 Blood Urea Nitrogen 26 mg/dL High 6-24 Creatinine 1.27 mg/dL High 0.51-0.95 BUN/Creatinine Ratio 20.5 High 8-20 Calcium 10.2 mg/dL N 8.6-10.3 Total Protein 6.4 g/dL N 6.4-8.9 Albumin 4.1 g/dL N 3.2-5.2 Globulin 2.3 g/dL N 2-4 Albumin/Globulin Ratio 1.8 N 1-3 Total Bilirubin 0.50 mg/dL N 0.2-1.0 Alkaline Phosphatase 51 U/L N 34-104 Alt 18 U/L N 7-52 Ast 18 U/L N 13-39 Egfr Non- 41.1 N >60 Egfr 52.9 N >60 30 Urine Microalbumin 05/23/2015 [facility] Ur Microalbumin 19.0 mg /L N Random [address] (mg/L) [place] [address] [phone] Urine Creatinine 80.99 mg/dL N Urine Microalbumin/Creatinine 23.4 ug/mg N <31 Laboratory test 05/23/2015 [facility] Vitamin D Total 23.8 Low 30-50 [address] 25(Oh) ng/[place] [address] [phone] Laboratory test 10/19/2014 [facility] Hemoglobin A1c 8.8 High 5-7 finding Surgical 08/31/2014 [facility] S RUN DATE: [address] 09/02/ [place] [address] <SEE [phone] NOTE> Urine 04/19/2014 [facility] Ur Microalbumin 16.0 mg/L N [address] (mg/L) [place] [address] [phone] Urine Creatinine 157.15 mg/dL N Urine Microalbumin/Creatinine 10.1 N Less Than 31 Comp Metabolic Panel 04/19/2014 [facility] Sodium 139 mmol/L N 133-[address] [place] [address] [phone] Potassium 4.4 mmol/L N 3.5-5.0 34 Chloride 107 mmol/L N 101-111 Co2 Carbon Dioxide 27 mmol/L N 22-32 Anion Gap 5 mmol/L N 2-11 Glucose 158 mg/dL High 70-100 Blood Urea Nitrogen 27 mg/dL High 6-24 Creatinine 1.18 mg/dL High 0.51-0.95 BUN/Creatinine Ratio 22.9 High 8-20 Calcium 9.8 mg/dL N 8.6-10.3 Total Protein 6.6 g/dL N 6.4-8.9 Albumin 4.0 g/dL N 3.2-5.2 Globulin 2.6 g/dL N 2-4 Albumin/Globulin Ratio 1.5 N 1-3 Total Bilirubin 0.50 mg/dL N 0.2-1.0 Alkaline Phosphatase 55 U/L N 34-104 Alt 19 U/L N 7-52 Ast 18 U/L N 13-39 Egfr Non- 44.9 N >60 Egfr 57.7 N >60 35 Lipid Profile 04/19/2014 [facility] Triglycerides 139 mg/dL N 36 (Trig/Chol/HDL) [address] [place] [address] [phone] Cholesterol 138 mg/dL N 37 HDL Cholesterol 39.6 mg/dL N 38 LDL Cholesterol 71 mg/dL N 39 Surgical 11/02/2013 [facility] S RUN DATE: [address] 11/10/ <[place] [address] NOTE> [phone] Laboratory test 07/25/2013 [facility] Lipase 21 U/L 11.0-[address] 2.0 [place] [address] [phone] CBC Auto Diff 07/25/2013 [facility] White Blood 7.2 10^3/uL 4.8-[address] Count .8 [place] [address] [phone] Red Blood Count 4.19 10^6/uL 4.0-5.4 Hemoglobin 13.2 g/dL 12.0-16.0 Hematocrit 38 % 35-47 Mean Corpuscular Volume 91 fL 80-97 Mean Corpuscular Hemoglobin 32 pg High 27-31 Mean Corpuscular HGB Conc 35 g/dL 31-36 Red Cell Distribution Width 14 % 10.5-15 Platelet Count 155 10^3/uL 150-450 Mean Platelet Volume 9 um3 7.4-10.4 Abs Neutrophils 6.9 10^3/uL 1.5-7.7 Abs Lymphocytes 0.1 10^3/uL Low 1.0-4.8 Abs Monocytes 0.1 10^3/uL 0-0.8 Abs Eosinophils 0 10^3/uL 0-0.6 Abs Basophils 0 10^3/uL 0-0.2 Abs Nucleated RBC 0.04 10^3/uL Granulocyte % 95.9 % High 38-83 Lymphocyte % 1.6 % Low 25-47 Monocyte % 2.0 % 1-9 Eosinophil % 0.1 % 0-6 Basophil % 0.4 % 0-2 Nucleated Red Blood Cells % 0.5 Basic Metabolic Panel 06/25/2013 [facility] Sodium 139 mmol/L 133-[address] [place] [address] [phone] Potassium 4.4 mmol/L 3.5-5.0 Chloride 107 mmol/L 101-111 Co2 Carbon Dioxide 27.0 mmol/L 22-32 Anion Gap 5.0 mmol/L 2-11 Glucose 143 mg/dL High 70-100 Blood Urea Nitrogen 25 mg/dL High 6-24 Creatinine 0.90 mg/dL 0.50-1.40 BUN/Creatinine Ratio 27.8 High 8-20 Calcium 9.6 mg/dL 8.1-9.9 Egfr Non- 61.5 >60 Egfr 79.2 >60 41 CBC Auto Diff 06/25/2013 [facility] White Blood 5.1 10^3/uL 4.8-10.[address] [place] [address] [phone] Red Blood Count 4.00 10^6/uL 4.0-5.4 Hemoglobin 12.3 g/dL 12.0-16.0 Hematocrit 37 % 35-47 Mean Corpuscular Volume 92 fL 80-97 Mean Corpuscular Hemoglobin 31 pg 27-31 Mean Corpuscular HGB Conc 34 g/dL 31-36 Red Cell Distribution Width 14 % 10.5-15 Platelet Count 179 10^3/uL 150-450 Mean Platelet Volume 8 um3 7.4-10.4 Abs Neutrophils 2.9 10^3/uL 1.5-7.7 Abs Lymphocytes 1.5 10^3/uL 1.0-4.8 Abs Monocytes 0.5 10^3/uL 0-0.8 Abs Eosinophils 0.2 10^3/uL 0-0.6 Abs Basophils 0 10^3/uL 0-0.2 Abs Nucleated RBC 0 10^3/uL Granulocyte % 57.2 % 38-83 Lymphocyte % 29.0 % 25-47 Monocyte % 9.5 % High 1-9 Eosinophil % 3.6 % 0-6 Basophil % 0.7 % 0-2 Nucleated Red Blood Cells % 0.1 Laboratory test 06/25/2013 [facility] Ferritin 43 ng/mL 11- [address] [place] [address] [phone] CBC Auto Diff 12/24/2012 [facility] White Blood 6.4 10^3/uL 4.8-10.[address] [place] [address] [phone] Red Blood Count 3.84 10^6/uL Low 4.0-5.4 Hemoglobin 11.9 g/dL Low 12.0-16.0 Hematocrit 36 % 35-47 Mean Corpuscular Volume 93 fL 80-97 Mean Corpuscular Hemoglobin 31 pg 27-31 Mean Corpuscular HGB Conc 33 g/dL 31-36 Red Cell Distribution Width 14 % 10.5-15 Platelet Count 171 10^3/uL 150-450 Mean Platelet Volume 8 um3 7.4-10.4 Abs Neutrophils 4.1 10^3/uL 1.5-7.7 Abs Lymphocytes 1.5 10^3/uL 1.0-4.8 Abs Monocytes 0.5 10^3/uL 0-0.8 Abs Eosinophils 0.2 10^3/uL 0-0.6 Abs Basophils 0 10^3/uL 0-0.2 Abs Nucleated RBC 0 10^3/uL Granulocyte % 64.5 % 38-83 Lymphocyte % 23.9 % Low 25-47 Monocyte % 7.7 % 1-9 Eosinophil % 3.2 % 0-6 Basophil % 0.7 % 0-2 Nucleated Red Blood Cells % 0.1 Comp Metabolic Panel 12/24/2012 [facility] Sodium 139 mmol/L 133-[address] [place] [address] [phone] Potassium 4.9 mmol/L 3.5-5.0 Chloride 108 mmol/L 101-111 Co2 Carbon Dioxide 26.0 mmol/L 22-32 Anion Gap 5.0 mmol/L 2-11 Glucose 155 mg/dL High 70-100 Blood Urea Nitrogen 26 mg/dL High 6-24 Creatinine 1.20 mg/dL 0.50-1.40 BUN/Creatinine Ratio 21.7 High 8-20 Calcium 9.9 mg/dL 8.1-9.9 Total Protein 6.0 g/dL Low 6.2-8.1 Albumin 3.7 g/dL 3.2-5.2 Globulin 2.3 g/dL 2-4 Albumin/Globulin Ratio 1.6 1-3 Total Bilirubin 0.7 mg/dL 0.4-1.5 Alkaline Phosphatase 58 U/L 30-110 Alt 28 U/L 14-54 Ast 24 U/L 12-42 Egfr Non- 44.3 >60 Egfr 57.0 >60 42 Laboratory test 12/24/2012 [facility] TSH (Thyroid 1.38 0.34- 5.[address] Stimulating miu/[place] [address] Horm) [phone] Laboratory test 12/23/2012 [facility] Troponin I 0.01 ng/mL 0 -0.06 [address] [place] [address] [phone] CBC Auto Diff 12/22/2012 [facility] White Blood 5.7 4.8-10.[address] Count 10^3/[place] [address] [phone] Red Blood Count 3.81 10^6/uL Low 4.0-5.4 Hemoglobin 11.5 g/dL Low 12.0-16.0 Hematocrit 35 % 35-47 Mean Corpuscular Volume 93 fL 80-97 Mean Corpuscular Hemoglobin 30 pg 27-31 Mean Corpuscular HGB Conc 32 g/dL 31-36 Red Cell Distribution Width 14 % 10.5-15 Platelet Count 192 10^3/uL 150-450 Mean Platelet Volume 8 um3 7.4-10.4 Abs Neutrophils 3.4 10^3/uL 1.5-7.7 Abs Lymphocytes 1.6 10^3/uL 1.0-4.8 Abs Monocytes 0.5 10^3/uL 0-0.8 Abs Eosinophils 0.3 10^3/uL 0-0.6 Abs Basophils 0.1 10^3/uL 0-0.2 Abs Nucleated RBC 0 10^3/uL Granulocyte % 58.6 % 38-83 Lymphocyte % 27.1 % 25-47 Monocyte % 8.7 % 1-9 Eosinophil % 4.5 % 0-6 Basophil % 1.1 % 0-2 Nucleated Red Blood Cells % 0 Inr/Protime 12/22/2012 [facility] Inr 0.88 0.87-0.97 [address] [place] [address] [phone] Laboratory test 12/22/2012 [facility] Activated 26.8 22.18- 37.18 finding [address] [facility] [place] [place] [address] Thrombo Time [phone] Comp Metabolic 12/22/2012 [facility] Sodium 139 mmol/L 133- 145 Panel [address] [place] [address] [phone] Potassium 5.1 mmol/L High 3.5-5.0 Chloride 107 mmol/L 101-111 Co2 Carbon Dioxide 25.0 mmol/L 22-32 Anion Gap 7.0 mmol/L 2-11 Glucose 161 mg/dL High 70-100 Blood Urea Nitrogen 32 mg/dL High 6-24 Creatinine 1.20 mg/dL 0.50-1.40 BUN/Creatinine Ratio 26.7 High 8-20 Calcium 10.1 mg/dL High 8.1-9.9 Total Protein 6.8 g/dL 6.2-8.1 Albumin 3.9 g/dL 3.2-5.2 Globulin 2.9 g/dL 2-4 Albumin/Globulin Ratio 1.3 1-3 Total Bilirubin 0.6 mg/dL 0.4-1.5 Alkaline Phosphatase 60 U/L 30-110 Alt 29 U/L 14-54 Ast 27 U/L 12-42 Egfr Non- 44.3 >60 Egfr 57.0 >60 44 Laboratory test 12/22/2012 [facility] Creatine 85 U/L 0-[address] [place] [address] [phone] CKMB 12/22/2012 [facility] CKMB ng/mL 1.7 ng/mL 0.3-4.[address] [place] [address] [phone] Laboratory test 12/22/2012 [facility] Troponin I 0.01 0-0.06 [address] ng/[place] [address] [phone] TSH (Thyroid Stimulating Horm) 1.42 miu/mL 0.34-5.60 Vitamin D 11/28/2012 [facility] Vitamin D 24 pg/mL 18-78 47 1,[address] 1,25-Dihydroxy Vitamin D,2 [place] [address] [phone] Vitamin D, 25 11/28/2012 [facility] 25-Hydroxy Vitamin <4.0 ng/ mL Hydroxy [address] [place] D2 [place] [address] [phone] 25-Hydroxy Vitamin D3 43 ng/mL 25-Hydroxy Vitamin D Total 43 ng/mL 48 CBC No Diff 09/08/2012 [facility] White Blood 6.4 10^3/uL 4.8 -10.[address] [place] [address] [phone] Red Blood Count 3.95 10^6/uL Low 4.0-5.4 Hemoglobin 12.3 g/dL 12.0-16.0 Hematocrit 36 % 35-47 Mean Corpuscular Volume 91 fL 80-97 Mean Corpuscular Hemoglobin 31 pg 27-31 Mean Corpuscular HGB Conc 34 g/dL 31-36 Red Cell Distribution Width 15 % 10.5-15 Platelet Count 160 10^3/uL 150-450 Mean Platelet Volume 8 um3 7.4-10.4 Comp Metabolic Panel 09/08/2012 [facility] Sodium 140 mmol/L 133-[address] [place] [address] [phone] Potassium 4.9 mmol/L 3.5-5.0 Chloride 110 mmol/L 101-111 Co2 Carbon Dioxide 23.0 mmol/L 22-32 Anion Gap 7.0 mmol/L 2-11 Glucose 150 mg/dL High 70-100 Blood Urea Nitrogen 32 mg/dL High 6-24 Creatinine 1.10 mg/dL 0.50-1.40 BUN/Creatinine Ratio 29.1 High 8-20 Calcium 9.7 mg/dL 8.1-9.9 Total Protein 7.1 g/dL 6.2-8.1 Albumin 3.6 g/dL 3.2-5.2 Globulin 3.5 g/dL 2-4 Albumin/Globulin Ratio 1.0 1-3 Total Bilirubin 0.5 mg/dL 0.4-1.5 Alkaline Phosphatase 61 U/L 30-110 Alt 34 U/L 14-54 Ast 26 U/L 12-42 Egfr Non- 49.0 >60 Egfr 63.0 >60 49 Laboratory test finding 09/08/2012 [facility] Inr 0.89 0.87- 0.97 [address] [place] [address] [phone] Activated Partial Thrombo Time 28.2 seconds 22.18-37.18 Laboratory test 06/13/2012 [facility] In House Hemoglobin A1c 7.0 5-7 finding Comp Metabolic Panel 06/05/2012 [facility] Sodium 141 mmol/L 133-145 [address] [place] [address] [phone] Potassium 4.6 mmol/L 3.5-5.0 Chloride 108 mmol/L 101-111 Co2 Carbon Dioxide 26.0 mmol/L 22-32 Anion Gap 7.0 mmol/L 2-11 Glucose 156 mg/dL High 70-100 Blood Urea Nitrogen 25 mg/dL High 6-24 Creatinine 1.30 mg/dL 0.50-1.40 BUN/Creatinine Ratio 19.2 8-20 Calcium 9.8 mg/dL 8.1-9.9 Total Protein 6.2 g/dL 6.2-8.1 Albumin 3.6 g/dL 3.2-5.2 Globulin 2.6 g/dL 2-4 Albumin/Globulin Ratio 1.4 1-3 Total Bilirubin 0.6 mg/dL 0.4-1.5 Alkaline Phosphatase 59 U/L 30-110 Alt 24 U/L 14-54 Ast 19 U/L 12-42 Egfr Non- 40.4 >60 Egfr 51.9 >60 50 Lipid Profile 06/05/2012 [facility] Triglycerides 115 mg/dL 40-200 (Trig/Chol/HDL) [address] [place] [address] [phone] Cholesterol 158 mg/dL Less than 200 HDL Cholesterol 45 mg/dL 40-60 51 Cholesterol/HDL Ratio 3.5 Average 1-4.44 LDL Cholesterol 90.0 mg/dL Less Than 100 52 CBC Auto 06/05/2012 [facility] White Blood 4.5 10^3/uL Low 4.8 -10.[address] [place] [address] [phone] Red Blood Count 3.98 10^6/uL Low 4.0-5.4 Hemoglobin 12.2 g/dL 12.0-16.0 Hematocrit 37 % 35-47 Mean Corpuscular Volume 93 fL 80-97 Mean Corpuscular Hemoglobin 31 pg 27-31 Mean Corpuscular HGB Conc 33 g/dL 31-36 Red Cell Distribution Width 15 % 10.5-15 Platelet Count 169 10^3/uL 150-450 Mean Platelet Volume 8 um3 7.4-10.4 Abs Neutrophils 2.1 10^3/uL 1.5-7.7 Abs Lymphocytes 1.6 10^3/uL 1.0-4.8 Abs Monocytes 0.4 10^3/uL 0-0.8 Abs Eosinophils 0.3 10^3/uL 0-0.6 Abs Basophils 0 10^3/uL 0-0.2 Abs Nucleated RBC 0 10^3/uL Granulocyte % 47.4 % 38-83 Lymphocyte % 35.7 % 25-47 Monocyte % 9.2 % High 1-9 Eosinophil % 6.7 % High 0-6 Basophil % 1.0 % 0-2 Nucleated Red Blood Cells % 0 Urine Microalbumin 11/29/2011 [facility] Microalbumin (MG/L) 5.0 mg/L Random [address] [place] [address] [phone] Urine Creatinine 47.8 mg/dL Jerry Alb/Creatinine Ratio 10.5 UG/MG Less Than 30 53 Laboratory test 11/29/2011 [facility] Hemoglobin A1c 7.3 % High Less Than [address] [place] [address] [phone] Comp Metabolic 11/29/2011 [facility] Sodium 140 135-[address] mmol/[place] [address] [phone] Potassium 4.4 mmol/L 3.5-5.0 Chloride 107 mmol/L 101-111 Co2 (Carbon Dioxide) 28.0 mmol/L 22-32 Anion Gap 5.0 mmol/L 2-11 55 Glucose 102 mg/dL High 70-100 BUN 22 mg/dL 6-24 Creatinine 1.1 mg/dL 0.50-1.40 One Over Creatinine 0.90 BUN/Creatinine Ratio 20.0 8-20 Calcium 9.9 mg/dL 8.1-9.9 Total Protein 6.4 GM/DL 6.2-8.1 Albumin 3.9 GM/DL 3.2-5.2 Globulin 2.5 GM/DL 2-4 Albumin/Globulin Ratio 1.6 1-3 Bilirubin Total 0.5 mg/dL 0.4-1.5 56 Alkaline Phosphatase 67 U/L 30-110 Alt (SGPT) 27 U/L 14-54 Ast (Sgot) 23 U/L 12-42 eGFR Non- 49.1 > 60 eGFR 63.1 > 60 57 CBC Auto Diff 11/29/2011 [facility] White Blood 5.7 CUMM 4.8- 10.[address] [place] [address] [phone] Red Cell Count 3.84 CUMM Low 4.2-5.4 Hemoglobin 11.8 g/dL Low 12.0-16.0 Hematocrit 35 % 35-47 Mean Corpuscular Volume 92 um3 79-97 Mean Corpuscular Hemoglob 31 pg 27-31 Mean Corpuscular HGB Cone 34 g/dL 32-36 Redcell Distribution WDTH 14 % 10.5-15 Platelet Count 191 CUMM 150-450 Mean Platelet Volume 7.8 um3 7.4-10.4 Gran % 60.9 % 38-83 Lymph % 29.1 % 25-47 Mononuclear % 7.4 % 1-9 Eosinophil % 2.0 % 0-6 Basophil % 0.6 % 0-2 Abs Lymphs 1.7 1.0-4.8 Abs Mononuclear 0.4 0-0.8 Absolute Neutrophil Count 3.5 1.5-7.7 Abs Eosinophils 0.1 0-0.6 Abs Basophils 0 0-0.2 Lipid Profile 08/25/2011 [facility] Triglyceride 77 mg/dL 40- 200 (Trig/Chol/HDL) [address] [place] [address] [phone] Cholesterol 144 mg/dL Less Than 200 58 High Density Lipoprotein 47 mg/dL 40-60 59 Cholesterol/HDL Ratio 3.06 AVERAGE 1-4.44 Low Density Lipoprotein 82 mg/dL Less Than 100 60 Comp Metabolic Panel 08/25/2011 [facility] Sodium 138 mmol/L 135-[address] [place] [address] [phone] Potassium 4.7 mmol/L 3.5-5.0 Chloride 108 mmol/L 101-111 Co2 (Carbon Dioxide) 26.0 mmol/L 22-32 Anion Gap 4.0 mmol/L 2-11 61 Glucose 116 mg/dL High 70-100 BUN 21 mg/dL 6-24 Creatinine 1.0 mg/dL 0.50-1.40 One Over Creatinine 1.00 BUN/Creatinine Ratio 21.0 High 8-20 Calcium 9.1 mg/dL 8.1-9.9 Total Protein 6.3 GM/DL 6.2-8.1 Albumin 3.6 GM/DL 3.2-5.2 Globulin 2.7 GM/DL 2-4 Albumin/Globulin Ratio 1.3 1-3 Bilirubin Total 0.6 mg/dL 0.4-1.5 62 Alkaline Phosphatase 69 U/L 30-110 Alt (SGPT) 33 U/L 14-54 Ast (Sgot) 24 U/L 12-42 eGFR Non- 54.8 > 60 eGFR 70.5 > 60 63 CBC Auto Diff 08/25/2011 [facility] White Blood 3.5 CUMM Low 4.8-10.[address] [place] [address] [phone] Red Cell Count 3.77 CUMM Low 4.2-5.4 Hemoglobin 11.8 g/dL Low 12.0-16.0 Hematocrit 34 % Low 35-47 Mean Corpuscular Volume 91 um3 79-97 Mean Corpuscular Hemoglob 31 pg 27-31 Mean Corpuscular HGB Cone 35 g/dL 32-36 Redcell Distribution WDTH 15 % 10.5-15 Platelet Count 171 CUMM 150-450 Mean Platelet Volume 8.0 um3 7.4-10.4 Gran % 50.4 % 38-83 Lymph % 36.9 % 25-47 Mononuclear % 7.4 % 1-9 Eosinophil % 4.6 % 0-6 Basophil % 0.7 % 0-2 Abs Lymphs 1.3 1.0-4.8 Abs Mononuclear 0.3 0-0.8 Absolute Neutrophil Count 1.8 1.5-7.7 Abs Eosinophils 0.2 0-0.6 Abs Basophils 0 0-0.2 Basic Metabolic Panel 05/25/2011 [facility] Sodium 139 mmol/L 135-[address] [place] [address] [phone] Potassium 4.5 mmol/L 3.5-5.0 Chloride 108 mmol/L 101-111 Co2 (Carbon Dioxide) 27.0 mmol/L 22-32 Anion Gap 4.0 mmol/L 2-11 64 Glucose 129 mg/dL High 70-100 BUN 25 mg/dL High 6-24 Creatinine 1.0 mg/dL 0.50-1.40 One Over Creatinine 1.00 BUN/Creatinine Ratio 25.0 High 8-20 Calcium 9.4 mg/dL 8.1-9.9 eGFR Non- 54.8 > 60 eGFR 70.5 > 60 65 CBC Auto Diff 05/25/2011 [facility] White Blood 4.2 CUMM Low 4.8-10.[address] [place] [address] [phone] Red Cell Count 3.85 CUMM Low 4.2-5.4 Hemoglobin 11.7 g/dL Low 12.0-16.0 Hematocrit 35 % 35-47 Mean Corpuscular Volume 90 um3 79-97 Mean Corpuscular Hemoglob 30 pg 27-31 Mean Corpuscular HGB Cone 34 g/dL 32-36 Redcell Distribution WDTH 16 % High 10.5-15 Platelet Count 185 CUMM 150-450 Mean Platelet Volume 8.0 um3 7.4-10.4 Gran % 61.9 % 38-83 Lymph % 25.5 % 25-47 Mononuclear % 8.1 % 1-9 Eosinophil % 3.9 % 0-6 Basophil % 0.6 % 0-2 Abs Lymphs 1.1 1.0-4.8 Abs Mononuclear 0.3 0-0.8 Absolute Neutrophil Count 2.6 1.5-7.7 Abs Eosinophils 0.2 0-0.6 Abs Basophils 0 0-0.2 Laboratory test 04/18/2011 [facility] Calcium 9.8 mg/dL 8.1- 9.9 finding [address] [place] [address] [phone] International 02/19/2011 [facility] Inr 1.59 High 0.82-1.17 66, 67 Normalized Ratio [address] [place] [address] [phone] Protime 19.2 SEC High 10.2-14.8 68 Urinalysis 02/19/2011 [facility] Ua Color YELLOW Yellow [address] [place] [address] [phone] Appearance-Urine CLEAR Clear Specific [place]-Ur 1.011 1.010-1.030 Esterase-Urine NEGATIVE Negative Nitrite NEGATIVE Negative Bjhelhrbktlf-Mk-UAN NEGATIVE Negative Protein-Urine NEGATIVE Negative PH-Urine 6.5 5-9 Blood-Urine NEGATIVE Negative Ketones-Urine NEGATIVE Negative Bilirubin-Ur NEGATIVE Negative Glucose-Urine NEGATIVE Negative Urine Culture & 02/19/2011 [facility] Urine Culture NG 69 [address] [facility] [place] [address] [phone] Urinalysis 01/29/2011 [facility] Ua Color YELLOW Yellow 70 [address] [place] [address] [phone] Appearance-Urine CLEAR Clear Specific [place]-Ur 1.013 1.010-1.030 Esterase-Urine NEGATIVE Negative Nitrite NEGATIVE Negative Pybkafhjbeag-Je-ROB NEGATIVE Negative Protein-Urine NEGATIVE Negative PH-Urine 6.5 5-9 Blood-Urine NEGATIVE Negative Ketones-Urine NEGATIVE Negative Bilirubin-Ur NEGATIVE Negative Glucose-Urine NEGATIVE Negative Basic Metabolic Panel 01/29/2011 [facility] Sodium 138 mmol/L 135-145 [address] [place] [address] [phone] Potassium 4.5 mmol/L 3.5-5.0 Chloride 105 mmol/L 101-111 Co2 (Carbon Dioxide) 26.0 mmol/L 22-32 Anion Gap 7.0 mmol/L 2-11 71 Glucose 113 mg/dL High 70-100 BUN 21 mg/dL 6-24 Creatinine 1.0 mg/dL 0.50-1.40 One Over Creatinine 1.00 BUN/Creatinine Ratio 21.0 High 8-20 Calcium 10.3 mg/dL High 8.1-9.9 eGFR Non- 55.0 > 60 eGFR 70.7 > 60 72 Type And Screen 01/29/2011 [facility] Patient Blood A POSITIVE (Pre-Adm) [address] [place] [address] [phone] Antibody Screen NEGATIVE Specimen Discard Date 02/12/11 73 Laboratory test 01/29/2011 [facility] PTT (Aptt) 27.3 25.15- 38.[address] [place] [address] [phone] Protime 01/29/2011 [facility] Inr 0.99 0.82-1.[address] [place] [address] [phone] Protime 11.7 SEC 10.2-14.8 75 CBC Auto Diff 01/29/2011 [facility] White Blood 5.5 CUMM 4.8- 10.[address] [place] [address] [phone] Red Cell Count 4.07 CUMM Low 4.2-5.4 Hemoglobin 12.6 g/dL 12.0-16.0 Hematocrit 37 % 35-47 Mean Corpuscular Volume 91 um3 79-97 Mean Corpuscular Hemoglob 31 pg 27-31 Mean Corpuscular HGB Cone 34 g/dL 32-36 Redcell Distribution WDTH 14 % 10.5-15 Platelet Count 190 CUMM 150-450 Mean Platelet Volume 7.8 um3 7.4-10.4 Gran % 62.0 % 38-83 Lymph % 25.5 % 25-47 Mononuclear % 8.1 % 1-9 Eosinophil % 3.8 % 0-6 Basophil % 0.6 % 0-2 Abs Lymphs 1.4 1.0-4.8 Abs Mononuclear 0.4 0-0.8 Absolute Neutrophil Count 3.4 1.5-7.7 Abs Eosinophils 0.2 0-0.6 Abs Basophils 0 0-0.2 CBC Auto Diff 10/05/2010 [facility] White Blood 5.4 CUMM 4.8- 10.[address] [place] [address] [phone] Red Cell Count 3.78 CUMM Low 4.2-5.4 Hemoglobin 11.7 g/dL Low 12.0-16.0 Hematocrit 35 % 35-47 Mean Corpuscular Volume 92 um3 79-97 Mean Corpuscular Hemoglob 31 pg 27-31 Mean Corpuscular HGB Cone 34 g/dL 32-36 Redcell Distribution WDTH 14 % 10.5-15 Platelet Count 184 CUMM 150-450 Mean Platelet Volume 8.2 um3 7.4-10.4 Gran % 62.2 % 38-83 Lymph % 22.8 % Low 25-47 Mononuclear % 8.8 % 1-9 Eosinophil % 5.5 % 0-6 Basophil % 0.7 % 0-2 Abs Lymphs 1.2 1.0-4.8 Abs Mononuclear 0.5 0-0.8 Absolute Neutrophil Count 3.4 1.5-7.7 Abs Eosinophils 0.3 0-0.6 Abs Basophils 0 0-0.2 Comp Metabolic Panel 10/05/2010 [facility] Sodium 139 mmol/L 135-[address] [place] [address] [phone] Potassium 4.7 mmol/L 3.5-5.0 Chloride 108 mmol/L 101-111 Co2 (Carbon Dioxide) 27.0 mmol/L 22-32 Anion Gap 4.0 mmol/L 2-11 76 Glucose 112 mg/dL High 70-100 BUN 25 mg/dL High 6-24 Creatinine 1.10 mg/dL 0.50-1.40 One Over Creatinine 0.90 BUN/Creatinine Ratio 22.7 High 8-20 Calcium 9.8 mg/dL 8.1-9.9 Total Protein 6.0 GM/DL Low 6.2-8.1 Albumin 3.7 GM/DL 3.2-5.2 Globulin 2.3 GM/DL 2-4 Albumin/Globulin Ratio 1.6 1-3 Bilirubin Total 0.8 mg/dL 0.4-1.5 77 Alkaline Phosphatase 45 U/L 30-110 Alt (SGPT) 26 U/L 14-54 Ast (Sgot) 25 U/L 12-42 eGFR Non- 49.2 > 60 eGFR 63.3 > 60 78 Lipid Profile 10/05/2010 [facility] Triglyceride 143 mg/dL 40 -200 (Trig/Chol/HDL) [address] [place] [address] [phone] Cholesterol 147 mg/dL Less Than 200 79 High Density Lipoprotein 42 mg/dL 40-60 80 Cholesterol/HDL Ratio 3.50 AVERAGE 1-4.44 Low Density Lipoprotein 76 mg/dL Less Than 100 81 Laboratory test 10/05/2010 [facility] Hemoglobin A1c 6.9 % High Less [address] Than 6.0 [place] [address] [phone] Urine 10/05/2010 [facility] Microalbumin 14.[address] (MG/L) mg/L Random [place], [place] [address] [phone] Urine Creatinine 182.15 mg/dL Jerry Alb/Creatinine Ratio 7.6 UG/MG Less Than 30 83 Laboratory test 04/28/2010 [facility] Ferritin 39 NG/ML 11.0- [address] [place] [address] [phone] CBC With 04/28/2010 [facility] White Blood 5.1 CUMM 4.8-10.8 Electronic Diff [address] [place] [address] [phone] Red Cell Count 3.57 CUMM Low 4.2-5.4 Hemoglobin 11.4 g/dL Low 12.0-16.0 Hematocrit 33 % Low 35-47 Mean Corpuscular Volume 93 um3 79-97 Mean Corpuscular Hemoglob 32 pg High 27-31 Mean Corpuscular HGB Cone 34 g/dL 32-36 Redcell Distribution WDTH 15 % 10.5-15 Platelet Count 161 CUMM 150-450 Mean Platelet Volume 7.5 um3 7.4-10.4 Gran % 62.9 % 38-83 Lymph % 23.4 % Low 25-47 Mononuclear % 10.0 % High 1-9 Eosinophil % 2.9 % 0-6 Basophil % 0.8 % 0-2 Abs Lymphs 1.2 1.0-4.8 Abs Mononuclear 0.5 0-0.8 Absolute Neutrophil Count 3.2 1.5-7.7 Abs Eosinophils 0.1 0-0.6 Abs Basophils 0 0-0.2 Iron & Iron Binding 04/28/2010 [facility] Iron Total 71 g/dL 28-[address] [place] [address] [phone] Unsaturated Iron Binding 331 g/dL Total Iron Binding Capacity 402 g/dL 250-450 % Iron Saturation 18 % 15-55 Comp Metabolic Panel 03/16/2010 [facility] Sodium 140 mmol/L 135-[address] [place] [address] [phone] Potassium 4.6 mmol/L 3.5-5.0 Chloride 106 mmol/L 101-111 Co2 (Carbon Dioxide) 27.0 mmol/L 22-32 Anion Gap 7.0 mmol/L 2-11 84 Glucose 170 mg/dL High 70-100 85 BUN 23 mg/dL 6-24 Creatinine 1.10 mg/dL 0.50-1.40 One Over Creatinine 0.90 BUN/Creatinine Ratio 20.9 High 8-20 Calcium 9.7 mg/dL 8.1-9.9 Total Protein 5.9 GM/DL Low 6.2-8.1 Albumin 3.7 GM/DL 3.2-5.2 Globulin 2.2 GM/DL 2-4 Albumin/Globulin Ratio 1.7 1-3 Bilirubin Total 0.6 mg/dL 0.4-1.5 86 Alkaline Phosphatase 44 U/L 30-110 Alt (SGPT) 21 U/L 14-54 Ast (Sgot) 20 U/L 12-42 eGFR Non- 52.3 > 60 eGFR 63.3 > 60 87 Iron & Iron Binding 03/16/2010 [facility] Iron Total 79 g/dL 28-[address] [place] [address] [phone] Unsaturated Iron Binding 313 g/dL Total Iron Binding Capacity 392 g/dL 250-450 % Iron Saturation 20 % 15-55 Laboratory test 03/16/2010 [facility] Erythrocyte Sed 29 MM/HR 0-[address] [place] [address] [phone] CBC With 03/16/2010 [facility] White Blood 3.7 CUMM Low 4.8- 10.8 Electronic Diff [address] [place] [address] [phone] Red Cell Count 3.57 CUMM Low 4.2-5.4 Hemoglobin 11.5 g/dL Low 12.0-16.0 Hematocrit 33 % Low 35-47 Mean Corpuscular Volume 93 um3 79-97 Mean Corpuscular Hemoglob 32 pg High 27-31 Mean Corpuscular HGB Cone 35 g/dL 32-36 Redcell Distribution WDTH 15 % 10.5-15 Platelet Count 178 CUMM 150-450 Mean Platelet Volume 7.0 um3 Low 7.4-10.4 Gran % 46.7 % 38-83 Lymph % 36.2 % 25-47 Mononuclear % 11.2 % High 1-9 Eosinophil % 5.1 % 0-6 Basophil % 0.8 % 0-2 Abs Lymphs 1.3 1.0-4.8 Abs Mononuclear 0.4 0-0.8 Absolute Neutrophil Count 1.7 1.5-7.7 Abs Eosinophils 0.2 0-0.6 Abs Basophils 0 0-0.2 Laboratory test 03/16/2010 [facility] Ferritin 39 NG/ML 11.0- [address] [place] [address] [phone] Vitamin B12 478 pg/mL 180-914 C Reactive Protein < 0.5 mg/dL Less Than 0.5 Protein 12/21/2009 [facility] Albumin 3.42 GM/DL 3.0-4.35 Electrophoresis Serum [address] [place] [address] [phone] Alpha 1 0.24 GM/DL 0.09-0.33 Alpha 2 1.06 GM/DL 0.59-1.18 Beta 0.95 GM/DL 0.68-1.02 Gamma 0.92 GM/DL 0.76-1.60 Albumin % 51.8 % 46-63 Alpha 1 % 3.6 % 1.2-5.3 Alpha 2 % 16.1 % 9-17 Beta % 14.4 % 10-16 Gamma % 13.9 % 12-22 A/G Ratio 1.1 0.9-2 Total Protein 6.6 GM/DL 6.2-8.1 Spep Comments (SEE NOTE) 88 Laboratory test 12/21/2009 [facility] Ferritin 77 NG/ML 11.0- [address] [place] [address] [phone] Vitamin B12 567 pg/mL 180-914 TSH 1.76 MIU/ML 0.34-5.60 Comp Metabolic Panel 12/21/2009 [facility] Sodium 141 mmol/L 135-[address] [place] [address] [phone] Potassium 4.3 mmol/L 3.5-5.0 Chloride 108 mmol/L 101-111 Co2 (Carbon Dioxide) 29.0 mmol/L 22-32 Anion Gap 4.0 mmol/L 2-11 89 Glucose 103 mg/dL High 70-100 90 BUN 23 mg/dL 6-24 Creatinine 1.20 mg/dL 0.50-1.40 One Over Creatinine 0.80 BUN/Creatinine Ratio 19.2 8-20 Calcium 9.4 mg/dL 8.1-9.9 91 Total Protein 6.3 GM/DL 6.2-8.1 Albumin 3.6 GM/DL 3.2-5.2 Globulin 2.7 GM/DL 2-4 Albumin/Globulin Ratio 1.3 1-3 Bilirubin Total 0.6 mg/dL 0.4-1.5 92 Alkaline Phosphatase 47 U/L 30-110 Alt (SGPT) 15 U/L 14-54 Ast (Sgot) 19 U/L 12-42 eGFR Non- 47.5 > 60 eGFR 57.5 > 60 93 Urine Microalbumin 12/21/2009 [facility] Microalbumin 11.0 mg/L Random [address] (MG/L) [place] [address] [phone] Urine Creatinine 88.35 mg/dL Jerry Alb/Creatinine Ratio 12.4 UG/MG Less Than 30 94 CBC With 12/21/2009 [facility] White Blood 5.3 CUMM 4.8-10.8 Electronic Diff [address] [place] [address] [phone] Red Cell Count 3.49 CUMM Low 4.2-5.4 Hemoglobin 11.1 g/dL Low 12.0-16.0 Hematocrit 33 % Low 35-47 Mean Corpuscular Volume 94 um3 79-97 Mean Corpuscular Hemoglob 32 pg High 27-31 Mean Corpuscular HGB Cone 34 g/dL 32-36 Redcell Distribution WDTH 15 % 10.5-15 Platelet Count 175 CUMM 150-450 Mean Platelet Volume 7.4 um3 7.4-10.4 Gran % 65.8 % 38-83 Lymph % 20.2 % Low 25-47 Mononuclear % 8.2 % 1-9 Eosinophil % 4.9 % 0-6 Basophil % 0.9 % 0-2 Abs Lymphs 1.1 1.0-4.8 Abs Mononuclear 0.4 0-0.8 Absolute Neutrophil Count 3.5 1.5-7.7 Abs Eosinophils 0.3 0-0.6 Abs Basophils 0 0-0.2 Liver Function 11/15/2009 [facility] Total Protein 6.1 GM/DL Low 6.2-8.1 Panel [address] [place] [address] [phone] Albumin 3.6 GM/DL 3.2-5.2 Globulin 2.5 GM/DL 2-4 Albumin/Globulin Ratio 1.4 1-3 Bilirubin Total 0.7 mg/dL 0.4-1.5 95 Bilirubin Direct 0.1 mg/dL 0.1-0.5 Indirect Bilirubin 0.6 mg/dL 0.1-0.75 Alkaline Phosphatase 47 U/L 30-110 Alt (SGPT) 17 U/L 14-54 Ast (Sgot) 20 U/L 12-42 Lipid Profile 11/15/2009 [facility] Triglyceride 104 mg/dL 40 -200 (Trig/Chol/HDL) [address] [place] [address] [phone] Cholesterol 153 mg/dL Less Than 200 96 High Density Lipoprotein 44 mg/dL 40-60 97 Cholesterol/HDL Ratio 3.48 AVERAGE 1-4.44 Low Density Lipoprotein 88 mg/dL Less Than 100 98 1 REFERENCE VALUE <4.0 (Negative) Test Performed by: [facility] - [address] [address] 2 Negative serology. Celiac disease unlikely. However, approximately 10% of patients with celiac disease are seronegative. Also, patients who are already adhering to a gluten-free diet may be seronegative. If celiac disease is highly clinically suspected, consider HLA-DQ typing. Test Performed by: [facility] - [address] [address] 3 Because ethnic data is not always readily available, this report includes an eGFR for both -Americans and non- Americans. The National Kidney Disease Education Program (NKDEP) does not endorse the use of the MDRD equation for patients that are not between the ages of 18 and 70, are , have extremes of body size, muscle mass, or nutritional status, or are non- or non-. According to the National Kidney Foundation, irrespective of diagnosis, the stage of the disease is based on the level of kidney function: Stage Description GFR(mL/min/1.73 m(2)) 1 Kidney damage with normal or decreased GFR 90 2 Kidney damage with mild decrease in GFR 60-89 3 Moderate decrease in GFR 30-59 4 Severe decrease in GFR 15-29 5 Kidney failure <15 (or dialysis) 4 Therapeutic target for the treatment of diabetes mellitus patients is <7% HBA1C, and in selective patients <6.0%. Please refer to [place] [employer] diabetic care guidelines for further information. 5 Md Allergy Immunology: [id number] 7 SEE RESULT BELOW Name: STEPHANIE KIMBALL : [address]: Librado Hung MD Acct: [id number] Unit: [id number] AGE: 77 Location: [facility] Re12/17/17 SEX: F Status: DEP REF SPEC: [id number] TYLOR: 12/17/17-[address] [facility] [address]: Librado Hung MD REQ: [id number] RECD: 12/17/171 STATUS: WINDY OLSON DR: Justa New MD _ ORDERED: LEVEL 4 COMMENTS: [id number] FINAL DIAGNOSIS Colon, random, biopsy: -- Benign colonic mucosa with no significant pathologic abnormalities. -- No evidence of microscopic colitis. CLINICAL HISTORY Diarrhea POST-OPERATIVE DIAGNOSIS Colonoscopy to cecum; random biopsies; diverticula GROSS DESCRIPTION The specimen is received in formalin labeled, Biopsy Random Colon, and consists of a 0.5 x 0.5 x 0.1 cm aggregate of newberry-white irregular soft tissue fragments which is submitted entirely in one cassette. Signed by and Reported on: Wendy Pearson MD 12/18/17 1109 END OF REPORT DEPARTMENT OF PATHOLOGY, [address] [place] [address] Nitish Mares M.D. Director [facility] # [id number] 8 C. Difficile toxin testing is not performed on formed stool specimens. Test of cure on positive 9 SEE RESULT BELOW Name: STEPHANIE KIMBALL : [address]: Justa New MD Acct: [id number] Unit: [id number] AGE: 77 Location: [facility] Re09/28/17 SEX: F Status: REG REF SPEC: [id number] TYLOR: 09/30/[address]: Justa New MD REQ: [id number] RECD: 09/30/17 STATUS: COMP _ SOURCE: STOOL SPDESC: ORDERED: C. diff PCR COMMENTS: C. Difficile toxin testing is not performed on formed stool specimens. Test of cure on positive patients is not recommended. Procedure Result Reported Site Stool Specimen Description Final 09/30/17- 1559 ML Stool Color Brown Stool Form Formed Stool Consistency Soft C. difficile PCR Final 09/30/17- 1559 ML Test not performed * ML - Main Lab . END OF REPORT DEPARTMENT OF PATHOLOGY, [address] [place] [address] Nitish Mares M.D. Director [facility] # [id number] 10 SEE RESULT BELOW Name: STEPHANIE KIMBALL : [address]: Justa New MD Acct: [id number] Unit: [id number] AGE: 77 Location: [facility] Re09/28/17 SEX: F Status: REG REF SPEC: [id number] TYLOR: 09/28/[address]: Justa New MD REQ: [id number] RECD: 09/28/17 STATUS: COMP _ SOURCE: STOOL SPDESC: ORDERED: Stool Culture COMMENTS: Cancelled. No specimen received. Unable to perform test requested.QUINTIN DUENAS NOTIFIED AT OFFICE 1100 09/30/17 Procedure Result Reported Site Stool Culture Final 09/30/17- 1249 ML Result No enteric pathogens isolated Testing for Salmonella, Shigella, Aeromonas, Plesiomonas, Yersinia and Campylobacter are included in a Stool Culture. Vibrio spp not routinely tested for in a stool culture. If testing is desired, please request specifically when placing test order. Sensitivities not routinely performed on stool isolates, as antibiotics may prolong the carriage rate of bacteria. Please contact the microbiology lab if sensitivities are required. Shiga Toxin 1 2 Final 09/30/17- 1024 ML Organism 1 Negative Shiga Toxin 1 2 Immunochromatographic Assay * ML - Main Lab . END OF REPORT DEPARTMENT OF PATHOLOGY, [address] [place] [address] Nitish Mares M.D. Director [facility] # [id number] 11 Therapeutic target for the treatment of diabetes mellitus patients is <7% HBA1C, and in selective patients <6.0%. Please refer to [place] [employer] diabetic care guidelines for further information. 12 Because ethnic data is not always readily available, this report includes an eGFR for both -Americans and non- Americans. The National Kidney Disease Education Program (NKDEP) does not endorse the use of the MDRD equation for patients that are not between the ages of 18 and 70, are , have extremes of body size, muscle mass, or nutritional status, or are non- or non-. According to the National Kidney Foundation, irrespective of diagnosis, the stage of the disease is based on the level of kidney function: Stage Description GFR(mL/min/1.73 m(2)) 1 Kidney damage with normal or decreased GFR 90 2 Kidney damage with mild decrease in GFR 60-89 3 Moderate decrease in GFR 30-59 4 Severe decrease in GFR 15-29 5 Kidney failure <15 (or dialysis) 13 Desirable: <150 Borderline High: 150-199 High: 200-499 Very High: >500 14 Desirable: <200 Borderline High: 200-239 High: >239 15 Low: <40 Desirable: 40-60 High: >60 16 Desirable: <100 Near Optimal: 100-129 Borderline High: 130-159 High: 160-189 Very High: >189 17 Because ethnic data is not always readily available, this report includes an eGFR for both -Americans and non- Americans. The National Kidney Disease Education Program (NKDEP) does not endorse the use of the MDRD equation for patients that are not between the ages of 18 and 70, are , have extremes of body size, muscle mass, or nutritional status, or are non- or non-. According to the National Kidney Foundation, irrespective of diagnosis, the stage of the disease is based on the level of kidney function: Stage Description GFR(mL/min/1.73 m(2)) 1 Kidney damage with normal or decreased GFR 90 2 Kidney damage with mild decrease in GFR 60-89 3 Moderate decrease in GFR 30-59 4 Severe decrease in GFR 15-29 5 Kidney failure <15 (or dialysis) 18 Desirable <150 Borderline high 150-199 High 200-499 Very High >500 19 Desirable <200 Borderline high 200-239 High >239 20 Low <40 Desirable: 40-60 High: >60 21 Desirable: <100 mg/dL Near Optimal: 100-129 mg/dL Borderline High: 130-159 mg/dL High: 160-189 mg/dL Very High: >189 mg/dL 22 Md Allergy Immunology: [id number] SHALINI FRIAS 23 Because ethnic data is not always readily available, this report includes an eGFR for both -Americans and non- Americans. The National Kidney Disease Education Program (NKDEP) does not endorse the use of the MDRD equation for patients that are not between the ages of 18 and 70, are , have extremes of body size, muscle mass, or nutritional status, or are non- or non-. According to the National Kidney Foundation, irrespective of diagnosis, the stage of the disease is based on the level of kidney function: Stage Description GFR(mL/min/1.73 m(2)) 1 Kidney damage with normal or decreased GFR 90 2 Kidney damage with mild decrease in GFR 60-89 3 Moderate decrease in GFR 30-59 4 Severe decrease in GFR 15-29 5 Kidney failure <15 (or dialysis) 24 Because ethnic data is not always readily available, this report includes an eGFR for both -Americans and non- Americans. The National Kidney Disease Education Program (NKDEP) does not endorse the use of the MDRD equation for patients that are not between the ages of 18 and 70, are , have extremes of body size, muscle mass, or nutritional status, or are non- or non-. According to the National Kidney Foundation, irrespective of diagnosis, the stage of the disease is based on the level of kidney function: Stage Description GFR(mL/min/1.73 m(2)) 1 Kidney damage with normal or decreased GFR 90 2 Kidney damage with mild decrease in GFR 60-89 3 Moderate decrease in GFR 30-59 4 Severe decrease in GFR 15-29 5 Kidney failure <15 (or dialysis) 25 Because ethnic data is not always readily available, this report includes an eGFR for both -Americans and non- Americans. The National Kidney Disease Education Program (NKDEP) does not endorse the use of the MDRD equation for patients that are not between the ages of 18 and 70, are , have extremes of body size, muscle mass, or nutritional status, or are non- or non-. According to the National Kidney Foundation, irrespective of diagnosis, the stage of the disease is based on the level of kidney function: Stage Description GFR(mL/min/1.73 m(2)) 1 Kidney damage with normal or decreased GFR 90 2 Kidney damage with mild decrease in GFR 60-89 3 Moderate decrease in GFR 30-59 4 Severe decrease in GFR 15-29 5 Kidney failure <15 (or dialysis) 26 Desirable <150 Borderline high 150-199 High 200-499 Very High >500 27 Desirable <200 Borderline high 200-239 High >239 28 Low <40 Desirable: 40-60 High: >60 29 Desirable: <100 mg/dL Near Optimal: 100-129 mg/dL Borderline High: 130-159 mg/dL High: 160-189 mg/dL Very High: >189 mg/dL 30 Because ethnic data is not always readily available, this report includes an eGFR for both -Americans and non- Americans. The National Kidney Disease Education Program (NKDEP) does not endorse the use of the MDRD equation for patients that are not between the ages of 18 and 70, are , have extremes of body size, muscle mass, or nutritional status, or are non- or non-. According to the National Kidney Foundation, irrespective of diagnosis, the stage of the disease is based on the level of kidney function: Stage Description GFR(mL/min/1.73 m(2)) 1 Kidney damage with normal or decreased GFR 90 2 Kidney damage with mild decrease in GFR 60-89 3 Moderate decrease in GFR 30-59 4 Severe decrease in GFR 15-29 5 Kidney failure <15 (or dialysis) 31 FASTING 12 HOUR Copy Result to: NIKOS DING MD [facility] ([id number]) 32 RUN DATE: 09/02/14 [facility] LAB LIVE PAGE 1 RUN TIME: [address] [place] [id number] Specimen Inquiry Name: STEPHANIE KIMBALL : [address]: Giorgio Romeo MD Acct: [id number] Unit: [id number] AGE: 74 Location: [facility] Re08/31/14 SEX: F Status: REG REF SPEC: [id number] TYLOR: 08/31/14-[address]: Giorgio Romeo MD REQ: [id number] RECD: 08/31/14161 STATUS: WINDY OLSON DR: Justa New MD _ ORDERED: LEVEL IV/3 FINAL DIAGNOSIS 1. Colon, ascending, biopsy: -- Tubulovillous adenoma. -- No high-grade dysplasia identified. 2. Esophagus, Schatzki's Ring, biopsy: -- Gastroesophageal transition zone mucosa with mild reflux esophagitis. -- No goblet cell (intestinal) metaplasia or dysplasia identified. 3. Esophagus at 27 cm, biopsy: -- Squamous mucosa with nonspecific chronic inflammation and reactive changes. -- Specific features of reflux esophagitis are not seen. -- No glandular component identified. CLINICAL HISTORY Screening colonoscopy with pervious colon polyp. EGD 04/28/02 tiny hiatal hernia, normal stomach POST-OPERATIVE DIAGNOSIS Screening colonoscopy to cecum - snare cautery resection of 2 small ascending colon polyps, mild diverticulosis. Body of esophagus normal - biopsied at 27-30 cm. ? eosinophilic esophagitis, distal esophageal ring with webs - multiple therapeutic biopsies , no dilation; stomach - normal; pylorus and duodenum - negative. Distal esophageal webs; ? eosinophilic esophagitis CONTINUED ON NEXT PAGE * ML=Testing performed at Main Lab DEPARTMENT OF PATHOLOGY, [address] [place] [address] Nitish Mares M.D. Director [facility] # [id number] RUN DATE: 09/02/14 [facility] LAB LIVE PAGE 2 RUN TIME: [address] [place] [id number] Specimen Inquiry Patient: STEPHANIE KIMBALL [id number] (Continued) GROSS DESCRIPTION (Continued) GROSS DESCRIPTION 1. The specimen is received in formalin labeled, Ascending Colon Polyps (2) , and consists of two newberry polypoid soft tissue fragments averaging 0.8 x 0.4 x 0.3 cm. The specimens are differentially inked, bisected and submitted entirely in one cassette. 2. The specimen is received in formalin labeled, Biopsy Schatzki's Ring, and consists of a 0.7 x 0.4 x 0.2 cm aggregate of multiple newberry irregular soft tissue fragments , which is submitted entirely in one cassette. 3. The specimen is received in formalin labeled, Biopsy Esophagus at 27 Cm , and consists of a 0.6 x 0.3 x 0.1 cm aggregate of multiple newberry-white irregular soft tissue fragments, which is submitted entirely in one cassette. Signed (signature on file) Nitish Mares MD 1215 END OF REPORT * ML=Testing performed at Main Lab DEPARTMENT OF PATHOLOGY, [facility] [employer] [place], [place] [address] Nitish Mares M.D. Director [facility] # [id number] FASTING 10 HOUR 34 Potassium reference range changed effective 03/21/14 35 Because ethnic data is not always readily available, this report includes an eGFR for both -Americans and non- Americans. The National Kidney Disease Education Program (NKDEP) does not endorse the use of the MDRD equation for patients that are not between the ages of 18 and 70, are , have extremes of body size, muscle mass, or nutritional status, or are non- or non-. According to the National Kidney Foundation, irrespective of diagnosis, the stage of the disease is based on the level of kidney function: Stage Description GFR(mL/min/1.73 m(2)) 1 Kidney damage with normal or decreased GFR 90 2 Kidney damage with mild decrease in GFR 60-89 3 Moderate decrease in GFR 30-59 4 Severe decrease in GFR 15-29 5 Kidney failure <15 (or dialysis) 36 Desirable <150 Borderline high 150-199 High 200-499 Very High >500 37 Desirable <200 Borderline high 200-239 High >239 38 Low <40 Desirable: 40-60 High: >60 39 Desirable <100 Near Optimal 100-129 Borderline high 130-159 High 160-189 Very High >189 40 RUN DATE: 11/10/13 [facility] LAB LIVE PAGE 1 RUN TIME: [address] [place], [place] [address] Specimen Inquiry Name: STEPHANIE KIMBALL : [address]: Niall Valderrama MD Acct: [id number] Unit: [id number] AGE: 73 Location: OR Re11/04/13 SEX: F Status: REG [facility] SPEC: [id number] TYLOR: 11/02/13- SUBM DR: Niall Valderrama MD REQ: [id number] RECD: 11/02/13-1010 STATUS: SOUT _ ORDERED: Decal, LEVEL III FINAL DIAGNOSIS Metatarsal head, right second toe, excision: Benign bone and cartilage with reactive change. PRE-OPERATIVE DIAGNOSIS Osteoarthritis right second metatarsal phalangeal GROSS DESCRIPTION The specimen is received in formalin labeled Stephanie Kimball, Metatarsal Head Right Second Toe, and consists of two newberry-white irregular portions of bone measuring 1.2 x 0.5 x 0.5 cm. and 1.5 x 1.2 x 0.5 cm. The larger portion has a smooth and even margin of resection and is partially surfaced by a glistening to smooth newberry-white articular surface. The specimen is sectioned and entirely submitted, one cassette following decalcification. MICROSCOPIC DESCRIPTION Signed (signature on file) Nitish Mares MD 1501 END OF REPORT * ML=Testing performed at Main Lab DEPARTMENT OF PATHOLOGY, [address] [place] [address] Nitish Mares M.D. Director [facility] # [id number] 41 Because ethnic data is not always readily available, this report includes an eGFR for both -Americans and non- Americans. The National Kidney Disease Education Program (NKDEP) does not endorse the use of the MDRD equation for patients that are not between the ages of 18 and 70, are , have extremes of body size, muscle mass, or nutritional status, or are non- or non-. According to the National Kidney Foundation, irrespective of diagnosis, the stage of the disease is based on the level of kidney function: Stage Description GFR(mL/min/1.73 m(2)) 1 Kidney damage with normal or decreased GFR 90 2 Kidney damage with mild decrease in GFR 60-89 3 Moderate decrease in GFR 30-59 4 Severe decrease in GFR 15-29 5 Kidney failure <15 (or dialysis) 42 Because ethnic data is not always readily available, this report includes an eGFR for both -Americans and non- Americans. The National Kidney Disease Education Program (NKDEP) does not endorse the use of the MDRD equation for patients that are not between the ages of 18 and 70, are , have extremes of body size, muscle mass, or nutritional status, or are non- or non-. According to the National Kidney Foundation, irrespective of diagnosis, the stage of the disease is based on the level of kidney function: Stage Description GFR(mL/min/1.73 m(2)) 1 Kidney damage with normal or decreased GFR 90 2 Kidney damage with mild decrease in GFR 60-89 3 Moderate decrease in GFR 30-59 4 Severe decrease in GFR 15-29 5 Kidney failure <15 (or dialysis) 43 Reference Range and Interpretation: TnI (ng/mL) Interpretation Less Than 0.06 ng/mL Not supportive of diagnosis of CT 0.06 - 0.50 ng/mL Indeterminate: suggest serial studies if clinically indicated. Greater than 0.5 ng/mL Consistent with diagnosis of CT 44 Because ethnic data is not always readily available, this report includes an eGFR for both -Americans and non- Americans. The National Kidney Disease Education Program (NKDEP) does not endorse the use of the MDRD equation for patients that are not between the ages of 18 and 70, are , have extremes of body size, muscle mass, or nutritional status, or are non- or non-. According to the National Kidney Foundation, irrespective of diagnosis, the stage of the disease is based on the level of kidney function: Stage Description GFR(mL/min/1.73 m(2)) 1 Kidney damage with normal or decreased GFR 90 2 Kidney damage with mild decrease in GFR 60-89 3 Moderate decrease in GFR 30-59 4 Severe decrease in GFR 15-29 5 Kidney failure <15 (or dialysis) 45 CKMB interpretation should be made in conjunction with clinical symptoms, patient history and EKG changes. 46 Reference Range and Interpretation: TnI (ng/mL) Interpretation Less Than 0.06 ng/mL Not supportive of diagnosis of CT 0.06 - 0.50 ng/mL Indeterminate: suggest serial studies if clinically indicated. Greater than 0.5 ng/mL Consistent with diagnosis of CT 47 Test Performed by: [place] [address] [employer] Clerk: Tyrese Santos III, M.D. 48 -- REFERENCE VALUE -- 25-HYDROXY D TOTAL (D2+D3) Optimum levels in the normal population are 25-80 Test Performed by: [place] [address] [employer] Clerk: Tyrese Santos III, M.D. 49 Because ethnic data is not always readily available, this report includes an eGFR for both -Americans and non- Americans. The National Kidney Disease Education Program (NKDEP) does not endorse the use of the MDRD equation for patients that are not between the ages of 18 and 70, are , have extremes of body size, muscle mass, or nutritional status, or are non- or non-. According to the National Kidney Foundation, irrespective of diagnosis, the stage of the disease is based on the level of kidney function: Stage Description GFR(mL/min/1.73 m(2)) 1 Kidney damage with normal or decreased GFR 90 2 Kidney damage with mild decrease in GFR 60-89 3 Moderate decrease in GFR 30-59 4 Severe decrease in GFR 15-29 5 Kidney failure <15 (or dialysis) 50 Because ethnic data is not always readily available, this report includes an eGFR for both -Americans and non- Americans. The National Kidney Disease Education Program (NKDEP) does not endorse the use of the MDRD equation for patients that are not between the ages of 18 and 70, are , have extremes of body size, muscle mass, or nutritional status, or are non- or non-. According to the National Kidney Foundation, irrespective of diagnosis, the stage of the disease is based on the level of kidney function: Stage Description GFR(mL/min/1.73 m(2)) 1 Kidney damage with normal or decreased GFR 90 2 Kidney damage with mild decrease in GFR 60-89 3 Moderate decrease in GFR 30-59 4 Severe decrease in GFR 15-29 5 Kidney failure <15 (or dialysis) 51 HDL Interpretation: Undesirable: High Risk: Less than 40 MG/DL Desirable: Low Risk: Greater than 60 MG/DL 52 LDL Interpretation: Low Risk Optimal Level: LDL Less than 100 MG/DL Near or Above Optimal: LDL 100-129 MG/DL Borderline High Risk: LDL 130-159 MG/DL High Risk: LDL 160-189 MG/DL Very High Risk: LDL Greater than 189 MG/DL 53 MICROALBUMINURIA IN A RANDOM SAMPLE IS DEFINED : MICROALBUMIN/CREATININE RATIO OF 30-299 ug/mg. . 54 THERAPEUTIC TARGET FOR THE TREATMENT OF DIABETES MELLITUS PATIENTS IS <7% HBA1C, AND IN SELECTIVE PATIENTS <6.0%. PLEASE REFER TO [employer] DIABETIC CARE GUIDELINES FOR FURTHER INFORMATION. 55 Anion gap measurement may be of limited value in the presence of any alkalosis, especially in a combined acid base disorder. . 56 A metabolite of Naproxen, O-desmethylnaproxen, has been shown to interfere with the [place] method for measuring total bilirubin. Samples from patients who have taken Naproxen have shown spurious elevation in total bilirubin levels. 57 Because ethnic data is not always readily available, this report includes an eGFR for both -Americans and non- Americans. The National Kidney Disease Education Program (NKDEP) does not endorse the use of the MDRD equation for patients that are not between the ages of 18 and 70, are , have extremes of body size, muscle mass, or nutritional status, or are non- or non-. According to the National Kidney Foundation, irrespective of diagnosis, the stage of the disease is based on the level of kidney function: Stage Description GFR(mL/min/1.73 m(2)) 1 Kidney damage with normal or decreased GFR 90 2 Kidney damage with mild decrease in GFR 60-89 3 Moderate decrease in GFR 30-59 4 Severe decrease in GFR 15-29 5 Kidney failure <15 (or dialysis) 58 CHOLESTEROL INTERPRETATION: Desirable: Less than 200 MG/DL Borderline-High Risk: 200-239 MG/DL High-Risk: 240 MG/DL and over 59 HDL INTERPRETATION: Undesirable: High Risk: Less than 40 MG/DL Desirable: Low Risk: Greater than 60 MG/DL 60 LDL INTERPRETATION: Low Risk Optimal Level: LDL Less than 100 MG/DL Near or Above Optimal: LDL 100-129 MG/DL Borderline High Risk: LDL 130-159 MG/DL High Risk: LDL 160-189 MG/DL Very High Risk: LDL Greater than 189 MG/DL 61 Anion gap measurement may be of limited value in the presence of any alkalosis, especially in a combined acid base disorder. . 62 A metabolite of Naproxen, O-desmethylnaproxen, has been shown to interfere with the [place] method for measuring total bilirubin. Samples from patients who have taken Naproxen have shown spurious elevation in total bilirubin levels. 63 Because ethnic data is not always readily available, this report includes an eGFR for both -Americans and non- Americans. The National Kidney Disease Education Program (NKDEP) does not endorse the use of the MDRD equation for patients that are not between the ages of 18 and 70, are , have extremes of body size, muscle mass, or nutritional status, or are non- or non-. According to the National Kidney Foundation, irrespective of diagnosis, the stage of the disease is based on the level of kidney function: Stage Description GFR(mL/min/1.73 m(2)) 1 Kidney damage with normal or decreased GFR 90 2 Kidney damage with mild decrease in GFR 60-89 3 Moderate decrease in GFR 30-59 4 Severe decrease in GFR 15-29 5 Kidney failure <15 (or dialysis) 64 Anion gap measurement may be of limited value in the presence of any alkalosis, especially in a combined acid base disorder. . 65 Because ethnic data is not always readily available, this report includes an eGFR for both -Americans and non- Americans. The National Kidney Disease Education Program (NKDEP) does not endorse the use of the MDRD equation for patients that are not between the ages of 18 and 70, are , have extremes of body size, muscle mass, or nutritional status, or are non- or non-. According to the National Kidney Foundation, irrespective of diagnosis, the stage of the disease is based on the level of kidney function: Stage Description GFR(mL/min/1.73 m(2)) 1 Kidney damage with normal or decreased GFR 90 2 Kidney damage with mild decrease in GFR 60-89 3 Moderate decrease in GFR 30-59 4 Severe decrease in GFR 15-29 5 Kidney failure <15 (or dialysis) [address] CHAPINCITO CANTOR AT FAX NUMBER [phone] FAX RESULTS TO A[facility]ha AT FAX NUMBER [phone] 67 Recommended INR for Patients on Oral Anticoagulants Prophylaxis 2.0 - 3.0 Treatment of thrombosis 2.0 - 3.0 Prevention of embolism 2.0 - 3.0 Prevention of embolism from prosthetic heart valves 2.5 - 3.5 68 DIAGNOSIS,TREATMENT,AND THERAPY MUST BE BASED ON THE INR VALUE ALONE. 69 FINAL: NO GROWTH DAY 2 (<1,000 CFU/mL) 70 AA 02-06-11 71 Anion gap measurement may be of limited value in the presence of any alkalosis, especially in a combined acid base disorder. . 72 Because ethnic data is not always readily available, this report includes an eGFR for both -Americans and non- Americans. The National Kidney Disease Education Program (NKDEP) does not endorse the use of the MDRD equation for patients that are not between the ages of 18 and 70, are , have extremes of body size, muscle mass, or nutritional status, or are non- or non-. According to the National Kidney Foundation, irrespective of diagnosis, the stage of the disease is based on the level of kidney function: Stage Description GFR(mL/min/1.73 m(2)) 1 Kidney damage with normal or decreased GFR 90 2 Kidney damage with mild decrease in GFR 60-89 3 Moderate decrease in GFR 30-59 4 Severe decrease in GFR 15-29 5 Kidney failure <15 (or dialysis) 73 PREADMISSION TESTING SAMPLES FOR BLOOD BANK WILL BE HELD FOR 14 DAYS FROM THE DATE OF COLLECTION *IF* THE FOLLOWING CRITERIA ARE MET: 1) THE PATIENT HAS *NOT* BEEN IN THE LAST 3 MONTHS. 2) THE PATIENT HAS *NOT* BEEN TRANSFUSED IN THE LAST 3 MONTHS. PREADMISSION TESTING SAMPLES WILL *NOT* BE HELD FOR 14 DAYS FROM PATIENTS WHO IN THE LAST 3 MONTHS: 1) HAVE BEEN 2) HAVE BEEN TRANSFUSED THESE PATIENTS *MUST* BE COLLECTED WITHIN 3 DAYS OF THE SURGERY DATE. 74 Recommended INR for Patients on Oral Anticoagulants Prophylaxis 2.0 - 3.0 Treatment of thrombosis 2.0 - 3.0 Prevention of embolism 2.0 - 3.0 Prevention of embolism from prosthetic heart valves 2.5 - 3.5 75 DIAGNOSIS,TREATMENT,AND THERAPY MUST BE BASED ON THE INR VALUE ALONE. 76 Anion gap measurement may be of limited value in the presence of any alkalosis, especially in a combined acid base disorder. . 77 A metabolite of Naproxen, O-desmethylnaproxen, has been shown to interfere with the [place] method for measuring total bilirubin. Samples from patients who have taken Naproxen have shown spurious elevation in total bilirubin levels. 78 Because ethnic data is not always readily available, this report includes an eGFR for both -Americans and non- Americans. The National Kidney Disease Education Program (NKDEP) does not endorse the use of the MDRD equation for patients that are not between the ages of 18 and 70, are , have extremes of body size, muscle mass, or nutritional status, or are non- or non-. According to the National Kidney Foundation, irrespective of diagnosis, the stage of the disease is based on the level of kidney function: Stage Description GFR(mL/min/1.73 m(2)) 1 Kidney damage with normal or decreased GFR 90 2 Kidney damage with mild decrease in GFR 60-89 3 Moderate decrease in GFR 30-59 4 Severe decrease in GFR 15-29 5 Kidney failure <15 (or dialysis) 79 CHOLESTEROL INTERPRETATION: Desirable: Less than 200 MG/DL Borderline-High Risk: 200-239 MG/DL High-Risk: 240 MG/DL and over 80 HDL INTERPRETATION: Undesirable: High Risk: Less than 40 MG/DL Desirable: Low Risk: Greater than 60 MG/DL 81 LDL INTERPRETATION: Low Risk Optimal Level: LDL Less than 100 MG/DL Near or Above Optimal: LDL 100-129 MG/DL Borderline High Risk: LDL 130-159 MG/DL High Risk: LDL 160-189 MG/DL Very High Risk: LDL Greater than 189 MG/DL 82 THERAPEUTIC TARGET FOR THE TREATMENT OF DIABETES MELLITUS PATIENTS IS <7% HBA1C, AND IN SELECTIVE PATIENTS <6.0%. PLEASE REFER TO [employer] DIABETIC CARE GUIDELINES FOR FURTHER INFORMATION. 83 MICROALBUMINURIA IN A RANDOM SAMPLE IS DEFINED : MICROALBUMIN/CREATININE RATIO OF 30-299 ug/mg. . 84 Anion gap measurement may be of limited value in the presence of any alkalosis, especially in a combined acid base disorder. . 85 Note change in reference range as of 01/08/08. The change was based on recommendations from the [place] [employer]. 86 A metabolite of Naproxen, O-desmethylnaproxen, has been shown to interfere with the [place] method for measuring total bilirubin. Samples from patients who have taken Naproxen have shown spurious elevation in total bilirubin levels. 87 Because ethnic data is not always readily available, this report includes an eGFR for both -Americans and non- Americans. The National Kidney Disease Education Program (NKDEP) does not endorse the use of the MDRD equation for patients that are not between the ages of 18 and 70, are , have extremes of body size, muscle mass, or nutritional status, or are non- or non-. According to the National Kidney Foundation, irrespective of diagnosis, the stage of the disease is based on the level of kidney function: Stage Description GFR(mL/min/1.73 m(2)) 1 Kidney damage with normal or decreased GFR 90 2 Kidney damage with mild decrease in GFR 60-89 3 Moderate decrease in GFR 30-59 4 Severe decrease in GFR 15-29 5 Kidney failure <15 (or dialysis) 88 NORMAL ELECTROPHORETIC PATTERN. 89 Anion gap measurement may be of limited value in the presence of any alkalosis, especially in a combined acid base disorder. . 90 Note change in reference range as of 01/08/08. The change was based on recommendations from the [place] [employer]. 91 Please note change in reference range effective 07 . 92 A metabolite of Naproxen, O-desmethylnaproxen, has been shown to interfere with the [place] method for measuring total bilirubin. Samples from patients who have taken Naproxen have shown spurious elevation in total bilirubin levels. 93 Because ethnic data is not always readily available, this report includes an eGFR for both -Americans and non- Americans. The National Kidney Disease Education Program (NKDEP) does not endorse the use of the MDRD equation for patients that are not between the ages of 18 and 70, are , have extremes of body size, muscle mass, or nutritional status, or are non- or non-. According to the National Kidney Foundation, irrespective of diagnosis, the stage of the disease is based on the level of kidney function: Stage Description GFR(mL/min/1.73 m(2)) 1 Kidney damage with normal or decreased GFR 90 2 Kidney damage with mild decrease in GFR 60-89 3 Moderate decrease in GFR 30-59 4 Severe decrease in GFR 15-29 5 Kidney failure <15 (or dialysis) 94 MICROALBUMINURIA IN A RANDOM SAMPLE IS DEFINED : MICROALBUMIN/CREATININE RATIO OF 30-299 ug/mg. . 95 A metabolite of Naproxen, O-desmethylnaproxen, has been shown to interfere with the [place] method for measuring total bilirubin. Samples from patients who have taken Naproxen have shown spurious elevation in total bilirubin levels. 96 CHOLESTEROL INTERPRETATION: Desirable: Less than 200 MG/DL Borderline-High Risk: 200-239 MG/DL High-Risk: 240 MG/DL and over 97 HDL INTERPRETATION: Undesirable: High Risk: Less than 40 MG/DL Desirable: Low Risk: Greater than 60 MG/DL 98 LDL INTERPRETATION: Low Risk Optimal Level: LDL Less than 100 MG/DL Near or Above Optimal: LDL 100-129 MG/DL Borderline High Risk: LDL 130-159 MG/DL High Risk: LDL 160-189 MG/DL Very High Risk: LDL Greater than 189 MG/DL Procedures Date Code Description Status 07/16/2018 22192 EKG Tracing & Interpretation Completed 06/16/2018 71121 Stress Test Completed 06/16/2018 71572 Myocardial Perfusion Imaging Tomographic (Spect) Completed Multiple Studies 06/10/2018 [id number] Bone Mineral Density Test Completed 04/14/2018 [id number] Mammogram Completed 12/17/2017 [id number] Colonoscopy Completed 09/17/2017 55007 EKG Tracing & Interpretation Completed 05/24/2017 17482 Polysomnography Sleep Staging 4+ Parameters Completed 04/10/2017 [id number] Mammogram Completed 10/12/2016 [id number] Diabetic Retinal Eye Exam Completed 09/19/2016 94149 EKG Tracing & Interpretation Completed 09/04/2016 67976 Carotid Doppler,Bilateral Completed 04/09/2016 [id number] Mammogram Completed 01/30/2016 [id number] Diabetic Retinal Eye Exam Completed 09/05/2015 98109 EKG Tracing & Interpretation Completed 08/30/2015 47626 Carotid Doppler,Bilateral Completed 04/06/2015 [id number] Mammogram Completed 08/31/2014 [id number] Colonoscopy Completed 08/20/2014 01586 Carotid Doppler,Bilateral Completed 06/17/2014 [id number] Bone Mineral Density Test Completed 06/09/2014 07532 Stress Test Completed 06/09/2014 27409 Myocardial Perfusion Imaging Tomographic (Spect) Completed Multiple Studies 06/04/2014 68795 ECHO Transthoracic, Real-Time 2D With Doppler And Completed Color Flow 04/05/2014 [id number] Mammogram Completed 11/02/2013 69506 Ostectomy Partial/Exostectomy/Condylectomy Metatarsal Completed Head 11/02/2013 49643 Ostectomy Partial/Exostectomy/Condylectomy Metatarsal Completed Head 10/19/2013 52730 EKG Tracing & Interpretation Completed 09/17/2013 37797 Rad Exam; Foot Limited Completed 06/25/2013 20502 EKG Tracing & Interpretation Completed 04/03/2013 [id number] Mammogram Completed 03/25/2013 57675 Polysomnography Sleep Staging 4+ Parameters W/Cpap Completed 02/20/2013 16315 Rad Exam; Foot Comp Completed 02/20/201377991 Inject/Drain Joint/Bursa Small W/O US Completed 01/02/2013 69790 EKG Tracing & Interpretation Completed 09/08/2012 79693 Intravascular Blood Flow Velocity Completed 09/08/2012 25402 Pharmologic Agent Admininstration Completed 09/08/2012 68316 Left Heart Cath. Incl S/I Coronaries, Angio S/I V Gram Completed If Done 09/08/2012 01415 EKG, Interpretation Only Completed 09/02/2012 11654 Carotid Doppler,Bilateral Completed 09/02/2012 91285 EKG Tracing & Interpretation Completed 09/02/2012 15158 EKG Tracing & Interpretation Completed 08/29/2012 49943 ECHO Transthoracic, Real-Time 2D With Doppler And Completed Color Flow 08/25/2012 58879 Stress Test Completed 08/25/2012 50932 Myocardial Perfusion Imaging Tomographic (Spect) Completed Multiple Studies 08/21/2012 97425 EKG Tracing & Interpretation Completed 08/08/2012 34535 Trigger Finger Release Incision / Tendon Sheath Completed Incision 08/08/2012 27656 Trigger Finger Release Incision / Tendon Sheath Completed Incision 08/08/2012 94250 Trigger Finger Release Incision / Tendon Sheath Completed Incision 08/06/2012 01709 Inject Tendon Sheath Or Ligament Aponeurosis Eg Completed Plantar Fascia 06/19/2012 [id number] Diabetic Retinal Eye Exam Completed 12/26/2011 75069 Polysomnography Sleep Staging 4+ Parameters W/Cpap Completed 09/03/2011 [id number] Mammogram Completed 09/03/2011 148924199 Bone Mineral Density Test Completed 03/26/2011 51769 Xray Knee 3 Views Completed 03/26/2011 98878 Rad Exam; Knee, Ap&L Completed 02/06/2011 35355 TKR Total Knee Replacement Completed 02/06/2011 86032 TKR Total Knee Replacement Completed 12/29/2010 89671 Xray Knee 3 Views Completed 12/29/2010 65046 Xray Knee 3 Views Completed 10/26/2009 95064 Inject/Drain Joint/Bursa Major W/O US Completed 10/19/2009 54084 Xray Knee 3 Views Completed 08/31/2009 [id number] Mammogram Completed 08/30/2009 20943 EKG Tracing & Interpretation Completed 04/27/2009 58467 Inject/Drain Joint/Bursa Major W/O US Completed 04/27/2009 67797 Rad Exam; Both Knees, Standing Ap Completed 06/09/2008 [id number] Bone Mineral Density Test Completed 09/08/2007 61551 EKG Tracing & Interpretation Completed 08/15/2007 [id number] Colonoscopy Completed 03/05/2007 41488 EKG Tracing & Interpretation Completed 03/05/2007 94737 EKG Tracing & Interpretation Completed Encounters Type Date Location Provider Dx Diagnosis Office Visit 01/16/2018 [facility] Internal Justa New, E11.40 Type 2 diabetes 2:20p Fadia Lobo M.D. mellitus with [place] diabetic neuropathy, unsp R19.7 Diarrhea, unspecified I10 Essential (primary) hypertension Office Visit 10/17/2017 1:20p Robert Marr E11.40 Type 2 diabetes Fadia New M.D. 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 unspecified [place] Office Visit 08/01/2017 7:40a [facility] Consuelo Marr K62.89 Other specified Fadia New M.D. diseases of anus [place] and rectum E11.9 Type 2 diabetes mellitus without complications Office Visit 07/16/2017 1:45p Pulmonology And Sleep Katy Rodriguez, R06.83 Snoring Services Of [facility] LAKESHA RN, TILE INSTALLER- Office Visit 07/15/2017 1:00p [facility] Internal Medicine Nilesh Campo Cough - Main Morin E11.65 Type 2 diabetes mellitus with hyperglycemia I25.9 Chronic ischemic heart disease, unspecified Office Visit 07/08/2017 [facility] Consuelo Galloway Cough 12:40p Fadia New M.D. [place] Office Visit 05/07/2017 Pulmonology And Katy G47.33 Obstructive sleep 1:00p Sleep Services Of LAKESHA Rodriguez, RN, apnea (adult) [facility] TILE INSTALLER-BC (pediatric) Office Visit 02/18/2017 [facility] Internal Justa E11.65 Type 2 diabetes 10:40a Fadia New M.D. mellitus with [place] hyperglycemia I10 Essential (primary) hypertension Office Visit 10/18/2016 [facility] Internal Justa E11.65 Type 2 diabetes 2:00p Fadia New M.D. 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 unspecified [place] Office Visit 08/14/2016 2:40p [facility] Internal Justa Z00.00 Encntr for Fadia New M.D. general adult [place] medical exam w/o abnormal findings E11.65 Type 2 diabetes mellitus with hyperglycemia I10 Essential (primary) hypertension M85.851 Oth disrd of bone density and structure, right thigh R13.10 Dysphagia, unspecified Office Visit 08/03/2016 9:00a [facility] Internal Justa R13.10 Fadia Irwin M.D. unspecified [place] E11.65 Type 2 diabetes mellitus with hyperglycemia B02.9 Zoster without complications R63.4 Abnormal weight loss Office Visit 07/17/2016 10:40a [facility] Internal Justa R13.10 Fadia Irwin M.D. unspecified [place] E11.65 Type 2 diabetes mellitus with hyperglycemia Office Visit 07/11/2016 12:47p [facility] Jasmin R13.10 Dysphagia, Assocjamison M.D. unspecified Hospitalists G24.9 Dystonia, unspecified E11.9 Type 2 diabetes mellitus without complications Office Visit 07/10/2016 12:47p [place] Hank Castellanos R13.10 Dysphagia, Assocjamison M.D. unspecified Hospitalists G24.9 Dystonia, unspecified E11.9 Type 2 diabetes mellitus without complications I10 Essential (primary) hypertension Office Visit 07/09/2016 12:46p [facility] Marcie R13.10 Dysphagia, Assoc,pc Gurpreet, D.O. unspecified Hospitalists G24.9 Dystonia, unspecified E11.9 Type 2 diabetes mellitus without complications I10 Essential (primary) hypertension Office Visit 07/08/2016 12:46p [facility] Marcie R13.10 Dysphagia, Assoc,pc Gurpreet, D.O. unspecified Hospitalists G24.9 Dystonia, unspecified E11.9 Type 2 diabetes mellitus without complications I10 Essential (primary) hypertension Office Visit 07/06/2016 12:45p [facility] Marcie R13.10 Dysphagia, Assoc,pc Gurpreet, D.O. unspecified Hospitalists G24.9 Dystonia, unspecified E11.9 Type 2 diabetes mellitus without complications I10 Essential (primary) hypertension Office Visit 07/05/2016 12:45p [facility] Marcie R13.10 Dysphagia, Assoc,pc Gurpreet, D.O. unspecified Hospitalists G24.9 Dystonia, unspecified E11.9 Type 2 diabetes mellitus without complications I10 Essential (primary) hypertension Office Visit 07/04/2016 12:44p [facility] Marcie R13.10 Dysphagia, Assoc,pc Gurpreet, D.O. unspecified Hospitalists G24.9 Dystonia, unspecified E11.9 Type 2 diabetes mellitus without complications I10 Essential (primary) hypertension Office Visit 07/03/2016 12:43p [facility] Marcie R13.10 Dysphagia, Assoc,pc Gurpreet, D.O. unspecified Hospitalists G24.9 Dystonia, unspecified E11.9 Type 2 diabetes mellitus without complications I10 Essential (primary) hypertension Office Visit 07/02/2016 9:08a [facility] Ramonita Alfred, R13.10 Dysphagia , Assoc,pc N.P. unspecified Hospitalists G24.9 Dystonia, unspecified E11.9 Type 2 diabetes mellitus without complications I10 Essential (primary) hypertension Office Visit 04/30/2016 Pulmonology And Katy G47.33 Obstructive sleep 11:15a Sleep Services Of LAKESHA Rodriguez, RN, apnea (adult) Traffic Representative TILE INSTALLER-BC (pediatric) Office Visit 01/26/2016 Traffic Representative Internal Justa I10 Essential 11:40a Fadia New M.D. (primary) [place] hypertension E11.9 Type 2 diabetes mellitus without complications R23.3 Spontaneous ecchymoses Office Visit 09/05/2015 11:15a [facility] Nikos Casillas I65.23 Occlusion and Of Robert Ding M.D., stenosis of [facility], FASNH bilateral carotid arteries I10 Essential (primary) hypertension I25.9 Chronic ischemic heart disease, unspecified Office Visit 07/26/2015 2:40p [facility] Internal Justa Z00.00 Encntr for Fadia New M.D. general adult [place] medical exam w/o abnormal findings N18.2 Chronic kidney disease, stage 2 (mild) R04.2 Hemoptysis Office Visit 06/07/2015 Pulmonology And Chio G47.33 Obstructive sleep 8:15a Sleep Services MD Bob apnea (adult) Of [facility] (pediatric) Office Visit 01/31/2015 [facility] Internal Kanika Varn, 627.3 Atrophic Vaginitis 11:00a Medicine - N.PReji Postmenopausal [place] Office Visit 08/30/2014 Jong Casillas 433.10 Occlusion & Stenosis 11:15a Cardiology Satnam Ding M.D., Carotid Artery W/O [facility] FAC, FASNH Cerebral Infarction Office Visit 06/21/2014 Jong Casillas 414.01 Coronary 11:30a Cardiology Satnam Ding M.D., Atherosclerosis LTAC[facility] located within [facility], FASNH [place] Office Visit 06/11/2014 Pulmonology And Katy 327.23 Obstructive Sleep 2:15p Sleep Services LAKESHA Rodriguez, Apnea Adult & Of [facility] RN, TILE INSTALLER- Pediatric Office Visit 04/21/2014 [facility] Internal Justa V70.0 Examination General 11:00a Fadia New M.D. Medical Routine AT [facility] 433.10 Occlusion & Stenosis Carotid Artery W/O Cerebral Infarction 723.1 Cervicalgia 250.00 Diabetes Mellitus W/O Compl Type II Or Unspec Controlled Office Visit 11/18/2013 [facility] Internal Justa 787.60 Full Incontinence Of 9:00a Fadia New M.D. Feces [place] Office Visit 10/19/2013 Jong Casillas 414.01 Coronary 10:30a Cardiology Satnam Ding M.D., Atherosclerosis [facility], FASNH [place] Office Visit 10/16/2013 [facility] Internal Justa 414.01 Coronary 11:20a Fadia New M.D. Atherosclerosis [place] 250.00 Diabetes Mellitus W/O Compl Type II Or Unspec Controlled 327.23 Obstructive Sleep Apnea Adult & Pediatric 443.89 Peripheral Vascular Disease Other 333.79 Other Acquired Torsion Dystonia Office Visit 09/17/2013 Orthopedic Niall 825.35 FX Metatarsal 1:30p Services Of Patience Valderrama Bone(S) Other Open C.M.A. Office Visit 09/04/2013 Jong Casillas 414.01 Coronary 11:30a Cardiology Of Patience Ding, Atherosclerosis [facility], FASNH [place] Office Visit 07/27/2013 [facility] Internal Justa 787.91 Diarrhea 4:00p Fadia New M.D. [place] Office Visit 07/24/2013 Jong Casillas 414.0 Coronary 11:15a Cardiology Of Patience Ding, Atherosclerosis [facility], FASNC 414.01 Coronary Atherosclerosis [place] Office Visit 06/25/2013 9:40a [facility] Internal Justa V72.84 Examination Fadia New M.D. Preoperative [place] Unspec 250.00 Diabetes Mellitus W/O Compl Type II Or Unspec Controlled 414.9 Ischemic Heart Disease Chronic Unspec 285.9 Anemia Unspec Office Visit 04/10/2013 Orthopedic Niall 715.97 Osteoarthrosis 2:15p Services Of Patience Valderrama Unspec Genlzd Or C.M.A. Localized Ankle & Foot Office Visit 02/20/2013 Orthopedic Niall 719.47 Pain Joint Ankle & 2:30p Services Of Patience Valderrama Foot C.M.A. 715.97 Osteoarthrosis Unspec Genlzd Or Localized Ankle & Foot 727.06 Tenosynovitis Foot & Ankle Office Visit 01/02/2013 10:45a Jong Casillas 414.9 Ischemic Heart Cardiology Of Patience Ding, Disease Chronic [facility], FASNH Unspec Office Visit 12/12/2012 11:40a [facility] Internal Justa 401.9 Hypertension Fadia New M.D. Unspec [place] 414.01 Coronary Atherosclerosis [place] 780.79 Malaise And Fatigue Other Office Visit 11/18/2012 8:45a [facility] Nikos Casillas 414.9 Ischemic Heart Of Robert Ding M.D., Disease Chronic FACC, FASNC Unspec Office Visit 11/03/2012 1:00p [facility] Nurse Visit IC 401.9 Hypertension Of [facility] Unspec Office Visit 10/21/2012 8:45a [facility] Nikos Casillas 414.9 Ischemic Heart Of Robert Ding M.D., Disease Chronic FACC, FASNC Unspec Office Visit 09/29/2012 1:00p [facility] Nurse Visit IC 401.9 Hypertension Of [facility] Unspec Office Visit 09/22/2012 9:45a [facility] Nikos Casillas 414.9 Ischemic Heart Of Robert Ding M.D., Disease Chronic FACC, FASNC Unspec Office Visit 09/15/2012 2:30p [facility] Arsalan Rangel 414.9 Ischemic Heart Of [facility] AT [facility] Patience Quiñonez Disease Chronic Unspec V58.41 Postoperative Wound Closure Encounter Office Visit 09/05/2012 1:45p [facility] Nikos Casillas 786.50 Pain Chest Unspec Of Robert Ding M.D., FACC, FASNC Office Visit 08/21/2012 9:00a [facility] Nikos Casillas 786.50 Pain Chest Unspec Of Traffic Representative Patience Ding, FACC, FASNC Office Visit 08/06/2012 10:00a Orthopedic Joy 727.03 Trigger Finger Services Of Godfrey LewMElsa Morin Office Visit 06/13/2012 1:40p [facility] Internal Kanika Maki, V70.0 Examination Medicine - N.P. General Medical [place] Routine AT Health Care Facility 401.9 Hypertension Unspec 250.00 Diabetes Mellitus W/O Compl Type II Or Unspec Controlled 733.90 Bone & Cartilage Disorder Unspec 272.4 Hyperlipidemia Other Unspec 727.03 Trigger Finger Acquired 787.3 Flatulence Eructation & Gas Pain V06.1 Iquvmybmxt-Vxvdbya-Zuuthtia Combined (DTaP) Office Visit 03/24/2012 [facility] Internal Kanika Maki, 680.9 Carbuncle & 11:40a Medicine - N.P. Furuncle Unspec [place] Site Office Visit 11/30/2011 Orthopedic [place] Cantor, 715.16 Osteoarthrosis 9:45a Services Of Patience Localized Prim C.M.AReji Lower Leg Office Visit 11/26/2011 [facility] Internal Ashly Nunn, 386.11 Vertigo Benign 10:20a Fadia Lobo M.D., FACP Paroxysmal Position [place] Office Visit 08/28/2011 [facility] Internal Justa 401.9 Hypertension Unspec 1:40p Patience Colbert V76.10 Screening For Malignant Neoplasm Breast V82.81 Special Screening For Osteoporosis Office Visit 08/01/2011 4:20p [facility] Internal Kanika Maki, 382.9 Otitis Media Medicine - N.P. Unspec [place] Office Visit 01/30/2011 4:00p DO Not Use Justa V72.84 Examination Sumeet New M.D. Preoperative Unspec 433.10 Occlusion & Stenosis Carotid Artery W/O Cerebral Infarction 250.00 Diabetes Mellitus W/O Compl Type II Or Unspec Controlled Office Visit 12/29/2010 11:15a Orthopedic [place] Cantor 716.96 Arthropathy Services Satnam Morin Unspec Lower Leg C.M.A. Office Visit 08/03/2010 9:45a DO Not Use Justa 780.79 Malaise And Sumeet New M.D. Fatigue Other Office Visit 04/07/2010 2:15p DO Not Use Justa 782.1 Rash & Other Sumeet New M.D. Nonspec Skin Eruption 285.9 Anemia Unspec 427.60 Premature Beats Unspec 780.79 Malaise And Fatigue Other 788.39 Incontinence Urinary Other Office Visit 01/06/2010 DO Not Use Justa 780.79 Malaise And 9:30a Sumeet New M.D. Fatigue Other Office Visit 10/26/2009 Orthopedic Services [place] Cantor 716.96 Arthropathy 9:30a Of C.M.A. Patience Unspec Lower Leg 836.0 Dislocation Knee Tear Of Medial Cartilage Or Meniscus Curren 719.46 Pain Joint Lower Leg Office Visit 10/19/2009 4:00p Orthopedic Wale Ralph6.96 Arthropathy Unspec Services Of Patience Lower Leg C.M.AReji 836.0 Dislocation Knee Tear Of Medial Cartilage Or Meniscus Curren Office Visit 08/30/2009 DO Not Use Jarred V70.0 Examination 1:45p Traffic Representative-[place] Alexandra, M.D. General Medical Routine AT Health Care Facility 250.00 Diabetes Mellitus W/O Compl Type II Or Unspec Controlled 733.90 Bone & Cartilage Disorder Unspec 272.4 Hyperlipidemia Other Unspec 443.9 Peripheral Vascular Disease Unspec 401.1 Hypertension Benign Office Visit 05/04/2009 DO Not Use Kanika Maki, 250.00 Diabetes 1:45p Robert-Main N.P. Mellitus W/O Compl Type II Or Unspec Controlled 401.1 Hypertension Benign Office Visit 04/27/2009 10:00a Orthopedic Sue Tsang, 716.96 Arthropathy Unspec Services Of [place] Lower Leg C.M.A. 727.09 Synovitis & Tenosynovitis Other 726.60 Enthesopathy Of Knee, Unspecified Office Visit 01/28/2009 DO Not Use Radoliver, 401.1 Hypertension 2:30p Sumeet Morris M.D. Benign Office Visit 09/27/2008 DO Not Use Jarred, 250.00 Diabetes Mellitus 11:30a Sumeet Morris M.D. 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 Disease & Abnormal Movement Disorder Unspec Office Visit 08/02/2008 DO Not Use Ashly Nunn, 382.9 Otitis Media Unspec 1:15p Sumeet Morin, FACP 493.90 Asthma Unspec W/O Status Asthmaticus Office Visit 05/19/2008 DO Not Use Jarred V70.0 Examination 9:30a Sumeet Morris M.D. 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 Degeneration Cervical 723.1 Cervicalgia Office Visit 01/29/2008 1:00p DO Not Use Alexandra Stern, 723.1 Cervicalgia Sumeet Morin 272.0 Hypercholesterolemia Pure 729.1 Myalgia & Myositis Unspec 250.00 Diabetes Mellitus W/O Compl Type II Or Unspec Controlled Office Visit 12/22/2007 DO Not Use Jarerd, 692.9 Dermatitis 1:45p Sumeet Morris M.D. Unspec Cause Due To Spec Agents Other 695.89 Erythematous Conditions Other 780.79 Malaise And Fatigue Other Office Visit 12/18/2007 4:00p DO Not Use Jarred, 729.1 Myalgia & Sumeet Morris M.D. Myositis Unspec 723.1 Cervicalgia 401.1 Hypertension Benign Office Visit 12/08/2007 DO Not Use Ashly Arline, 386.11 Vertigo Benign 2:30p Sumeet Morin, FACP Paroxysmal Position Office Visit 09/08/2007 DO Not Use Jarred V72.84 Examination 11:30a Sumeet Morris M.D. Preoperative Unspec 250.00 Diabetes Mellitus W/O Compl Type II Or Unspec Controlled 465.9 URI Upper Respiratory Infections Acute Unspec Sites 401.1 Hypertension Benign Office Visit 05/21/2007 DO Not Use Jarred 729.5 Pain In Limb 4:15p Sumeet Morris M.D. Office Visit 03/05/2007 DO Not Use Jarred, 786.05 Shortness Of 3:15p Sumeet Morris M.D. Breath 780.79 Malaise And Fatigue Other 250.00 Diabetes Mellitus W/O Compl Type II Or Unspec Controlled 443.9 Peripheral Vascular Disease Unspec 272.0 Hypercholesterolemia Pure Office Visit 11/04/2006 DO Not Use Jarred 443.9 Peripheral 3:45p Sumeet Morris M.D. Vascular Disease Unspec 272.0 Hypercholesterolemia Pure 250.00 Diabetes Mellitus W/O Compl Type II Or Unspec Controlled 401.1 Hypertension Benign Office Visit 04/29/2006 DO Not Use Radoliver, 250.00 Diabetes 11:15a Sumeet Morris M.D. Mellitus W/O Compl Type II Or Unspec Controlled 272.0 Hypercholesterolemia Pure 443.9 Peripheral Vascular Disease Unspec 401.1 Hypertension Benign V04.81 Need For Prophylactic Vaccination & Inoculation/Influenza Office Visit 01/24/2006 2:00p DO Not Use Alexandra Stern, 723.1 Cervicalgia Sumeet Morin Office Visit 12/31/2005 11:30a DO Not Use Alexandra Stern 72[address].1 Cervicalgia Sumeet Morin Plan of Treatment Future Appointment(s):10/22/2018 11:45 am - [facility].D., [facility] FASNH at [facility]09/30/2018 1:00 pm - Traveling ECHO 1 at [facility]08/05/2018 2:20 pm - Justa New M.D. at [facility] Internal Medicine - [employer]81/27/2019 - Nikos Ding M.D., [facility], GTAEPR63.10 Atherosclerotic heart disease of [place] coronary artery withComments:As discussed, your stress test seems fine so I do not feel your right shoulder pain is caused by a heart problem. Please continue to exercise.Follow up:after echo and CD are done in 5.
[2018-07-24 10:06] VITALS: BP 137/50
--- NOTE | 2018-07-24 11:05 | UC ---
General HPI - HPI Summary HPI Summary: 78 yo WF p/w left lower rib pains s/p fall onto hard surface of her sofa denies SOB - History of Current Complaint Chief Complaint: UCTrauma Stated Complaint: FELL RIB INJURY Time Seen by Provider: 07/24/18 10:11 Hx Obtained From: Patient, Family/School Coordinator Onset/Duration: Sudden Onset Onset Severity: Moderate Current Severity: Moderate Pain Intensity: 7 - Allergy/Home Medications Allergies/Adverse Reactions: Allergies Allergy/AdvReac Type Severity Reaction Status Date / Time latex Allergy Hives Verified 07/24/18 10:07 metformin Allergy Unknown Verified 07/24/17 16:50 Reaction Details metoprolol Allergy Fatigue Verified 07/24/17 16:50 Sulfa (Sulfonamide Allergy Hives Verified 12/11/17 11:47 Antibiotics) tramadol Allergy Unknown Verified 07/24/17 16:50 Reaction Details bees Allergy Anaphylatic Uncoded 08/10/16 08:27 Shock dust mite Allergy Unknown Uncoded 08/10/16 08:27 Reaction Details ENVIRONMENTAL Allergy Unknown Uncoded 08/10/16 08:27 Reaction Details tape Allergy Unknown Uncoded 12/11/17 11:48 Reaction Details PMH/Surg Hx/FS Hx/Imm Hx - Surgical History Surgical History: Yes Surgery Procedure, Year, and Place: 1988Hammer Toe Surgery Right Foot 1997 ; Right Knee Surgery, 2010, [facility]; Fractured Left Shoulder, 1988 ; Hysterectomy, 1993 ; Breast ReductioN, 1985; Right Knee ArthroscopyX2, 1993, 2005, [facility], eye surgery jun 29 2013 lid reduction.; Right Endartarectomy 2004, [place] ; VaricoseVein Surgery Right Leg 2006, [place];T[facility] RIGHT [facility]NEE, [facility] RIGHT [facility] 2010 Right TKR, [facility],peg tube 07/2016. RIGHT carotid 2006 - Family History Known Family History: Positive: Unknown, Cardiac Disease - Social History Alcohol Use: None Substance Use Type: None Smoking Status (MU): Never Smoked Tobacco - Immunization History Most Recent Influenza Vaccination: 2016 Most Recent Tetanus Shot: unk Most Recent Pneumonia Vaccination: 2006 Review of Systems All Other Systems Reviewed And Are Negative: Yes - Comments Additional Review of Systems Comments: Constitutional: Negative Eyes: Negative ENT: Negative Cardiovascular: Negative Respiratory: Negative Gastrointestinal: Negative Genitourinary: Negative Musculoskeletal: Left lower rib pains Neurological: Negative Psychological: Normal All Other Systems Reviewed And Are Negative: Yes Physical Exam - Summary Physical Exam Summary: Vital Signs Reviewed: Yes Skin: Positive: Warm Head/Face: Positive: Normal Head/Face Inspection Eyes: Positive: Normal ENT: Positive: Normal ENT inspection Neck: Positive: Supple Respiratory/Lung Sounds: Positive: Clear to Auscultation Cardiovascular: Positive: Normal, RRR, S1, S2 Abdomen Description: Positive: Nontender Musculoskeletal: Positive: TTP on left lower T9-10 region no bony tenderness Neurological: Positive: Normal Psychiatric: Positive: Normal, Affect/Mood Appropriate Vital Signs: Initial Vital Signs Temp 36.6 C 07/24/18 10:03 Pulse 61 07/24/18 10:03 Resp 16 07/24/18 10:03 BP 137/50 07/24/18 10:03 Pulse Ox 100 07/24/18 10:03 Course/Dx - Course Course Of Treatment: XR left ribs- no definite fx noted - Diagnoses Provider Diagnosis: Contusion of rib on left side Discharge - Sign-Out/Discharge Documenting (check all that apply): Patient Departure All imaging exams completed and their final reports reviewed: Yes - Discharge Plan Condition: Stable Disposition: HOME Patient Education Materials: Rib Contusion (ED) Referrals: Justa New MD [Primary Care Provider] - Additional Instructions: manual splinting and pain control - Billing Disposition and Condition Condition: STABLE Disposition: Home
== END 2018-07-24 11:23 | disposition home or self-care (01) ==
LOC: UCEAST 09:52
DX: S20.212A Contusion of left front wall of thorax, initial encounter (principal); Z91.09 Other allergy status, other than to drugs and biological substances; Z91.040 Latex allergy status; Z88.8 Allergy status to other drugs, medicaments and biological substances; Z88.2 Allergy status to sulfonamides; Z91.030 Bee allergy status; W19.XXXA Unspecified fall, initial encounter; Y92.9 Unspecified place or not applicable
CPT/HCPCS: 99211; G0463

== ENCOUNTER 2023-02-17 19:02 | Inpatient (IN) ==
[2023-02-17] MEDS ORDERED: Morphine 4 MG/ML VIAL (1 ml) IV ONE ×2 (19:45→22:48)
[2023-02-18] MEDS ORDERED: NS 0.9% 1000 ml BAG 1,000 ML IV SCH (00:15)
[2023-02-18] MEDS ORDERED: Acetaminophen IV 1 GM/100ML 1,000 MG/100 ML BAG IV PRN (00:21)
[2023-02-18] MEDS ORDERED: Morphine 2 MG/ML SYRINGE IV PRN ×2 (00:21→09:52)
[2023-02-18] MEDS ORDERED: Polyethylene Glycol 3350 17 GM PACKET PO PRN ×2 (00:22→15:37)
[2023-02-18] MEDS ORDERED: Magnesium Hydroxide LIQ 30 ML UDC PO PRN ×2 (00:22→15:37)
[2023-02-18] MEDS ORDERED: Senna TAB 8.6 mg TAB PO PRN ×2 (00:22→15:37)
[2023-02-18 00:31] LABS: ABS Basophils 0.1 10^3/uL (0.0-0.1); ABS Lymphocytes 0.9 10^3/uL (1.0-4.8); ABS Monocytes 0.7 10^3/uL (0.0-0.9); ABS Neutrophils 6.7 10^3/uL (1.5-7.6); Eosinophil % 0.4 %; Hematocrit 34.3 % (35-45); Hemoglobin 11.9 g/dL (11.5-14.3); Lymphocyte % 10.5 %; Mean Corpuscular Hgb Conc 34.8 g/dL (31-36); Mean Corpuscular Volume 91.9 fL (80-97); Mean Platelet Volume 7.6 fL (7.5-11.2); Platelet Count 126 10^3/uL (150-450); Red Blood Count 3.73 10^6/uL (3.63-4.92); Red Cell Distribution Width 14.3 % (12-17); White Blood Count 8.4 10^3/uL (3.8-11.8)
[2023-02-18 00:37] LABS: Activated Partial Thrombo Time 26.7 seconds (26.0-38.0); INR 1.1 (0.83-1.13)
[2023-02-18 00:49] LABS: Albumin 3.8 g/dL (3.2-5.2); Calcium 9.8 mg/dL (8.6-10.3); Total Bilirubin 0.6 mg/dL (0.2-1.0)
[2023-02-18 00:54] LABS: Albumin/Globulin Ratio 1.5 (1-3); Creatinine, Serum 1.26 mg/dL (0.51-0.95); Globulin 2.5 g/dL (2-4); Total Protein 6.3 g/dL (6.4-8.9); eGFR CKD-EPI 42.9 (>60)
[2023-02-18 03:29] LABS: Urine Appearance Clear; Urine Bilirubin Negative (Negative); Urine Blood Negative (Negative); Urine Color Yellow; Urine Glucose Negative (Negative); Urine Ketones Negative (Negative); Urine Nitrite Negative (Negative); Urine Protein Negative (Negative); Urine Specific Gravity 1.008 (1.002-1.030); Urine Urobilinogen Negative (Negative)
[2023-02-18 05:57] LABS: ABS Lymphocytes 0.7 10^3/uL (1.0-4.8); ABS Monocytes 0.6 10^3/uL (0.0-0.9); ABS Neutrophils 5.2 10^3/uL (1.5-7.6); Eosinophil % 0.3 %; Hematocrit 32.7 % (35-45); Hemoglobin 11.5 g/dL (11.5-14.3); Lymphocyte % 11.2 %; Mean Corpuscular Hemoglobin 32.1 pg (27-33); Mean Corpuscular Hgb Conc 35.1 g/dL (31-36); Mean Corpuscular Volume 91.4 fL (80-97); Mean Platelet Volume 7.3 fL (7.5-11.2); Platelet Count 120 10^3/uL (150-450); Red Blood Count 3.57 10^6/uL (3.63-4.92); Red Cell Distribution Width 14.2 % (12-17); White Blood Count 6.6 10^3/uL (3.8-11.8)
[2023-02-18 06:12] LABS: Calcium 9.5 mg/dL (8.6-10.3); Creatinine, Serum 1.12 mg/dL (0.51-0.95); Potassium 4.1 mmol/L (3.5-5.0); eGFR CKD-EPI 49.4 (>60)
[2023-02-18] MEDS: Isosorbide Mononit ER 60mg TAB PO SCH (08:12)
[2023-02-18] MEDS: Mometasone/Formoter 100/5 MDI INH SCH ×2 (09:26→20:41)
[2023-02-18] MEDS: Acetaminophen IV 1 GM/100ML 1,000 MG/100 ML BAG IV SCH ×2 (10:28→18:34)
[2023-02-18] MEDS ORDERED: Ondansetron ODT 4 mg TAB 4 MG TAB SL PRN (10:28)
[2023-02-18] MEDS ORDERED: Dextrose 50% Syringe 50 ml 25 GM/50 ML SYRINGE IV PUSH PRN (11:18)
[2023-02-18] MEDS ORDERED: Naloxone 0.4 mg VIAL 0.4 mg/ml 1 ml VIAL IV PRN ×2 (12:49→15:40)
[2023-02-18] MEDS ORDERED: Ondansetron 4 mg VIAL 2 MG/ML 2 ml VIAL IV PRN (12:49)
[2023-02-18] MEDS ORDERED: Buffered Lidocaine 1% SYRIN 1 ml INTRADERM ONE ×2 (12:49→15:40)
[2023-02-18] MEDS ORDERED: fentaNYL 100 mcg/2 ml 50 MCG/ML VIAL IV PRN (12:49)
[2023-02-18] MEDS ORDERED: Metoclopramide 5 MG/ML VIAL (10 mg) IV PRN (12:49)
[2023-02-18] MEDS ORDERED: HYDROcodone/ACETAMIN 5/325 mg TAB PO PRN (12:49)
[2023-02-18] MEDS ORDERED: ceFAZolin 2 GM in NS PREMIX 2 GM/100 ML BAG IVPB ONE (12:53)
[2023-02-18] MEDS ORDERED: Propofol 10 MG/ML 20 ML BTL ONE (13:19)
[2023-02-18] MEDS ORDERED: Lidocaine 2% PF 5 ML VIAL ONE (13:19)
[2023-02-18] MEDS ORDERED: fentaNYL 100 mcg/2 ml 50 MCG/ML VIAL ONE (13:19)
[2023-02-18] MEDS ORDERED: Phenylephrine IV 10 MG/ML 1 ml VIAL ONE (13:21)
[2023-02-18] MEDS ORDERED: Ondansetron 4 mg VIAL 2 MG/ML 2 ml VIAL ONE ×2 (14:45→16:09)
[2023-02-18] MEDS ORDERED: Dexamethasone IV 4 MG/ML VIAL 1 ml VIAL ONE (14:45)
[2023-02-18] MEDS ORDERED: Glycopyrrolate IV 0.2 MG/ML 1 ML VIAL ONE (15:08)
[2023-02-18] MEDS ORDERED: Esmolol 10 MG/ML 10 ML (100 mg) IV ONE (15:21)
[2023-02-18] MEDS ORDERED: Prochlorperazine 5 mg/ml 2 ml VIAL (10 mg) IV PRN (15:40)
[2023-02-18] MEDS ORDERED: HYDROmorphone 1 MG/1 ML SYRINGE IV PRN (15:40)
[2023-02-18] MEDS: Lactated Ringers 1000 ml BAG 1,000 ML IV SCH ×2 (15:43→17:14)
[2023-02-18] MEDS ORDERED: Lactated Ringers 1000 ml BAG 1,000 ML IV SCH ×2 (16:00→18:00)
[2023-02-18] MEDS ORDERED: DULAGLUTIDE 0.75 MG/0.5 ML SUBCUT SCH (16:00)
[2023-02-18] MEDS ORDERED: [UNRECOGNIZED DRUG - OTHER] IM SCH (16:00)
[2023-02-18] MEDS ORDERED: Metoclopramide 5 MG/ML VIAL (10 mg) ONE (16:06)
[2023-02-18] MEDS ORDERED: ceFAZolin 1 GM ADVAN 1 GM in NS 0.9% 50 ML 50 ML IVPB SCH (22:00)
[2023-02-18] MEDS: ceFAZolin 1 GM ADVAN 1 GM in NS 0.9% 50 ML 50 ML IVPB SCH (22:59)
[2023-02-18] MEDS: Aspirin EC 81 mg TAB.EC (enteric coated) PO SCH (23:03)
[2023-02-18] MEDS: Magnesium Hydroxide LIQ 30 ML UDC PO SCH (23:27)
[2023-02-19] MEDS: Acetaminophen IV 1 GM/100ML 1,000 MG/100 ML BAG IV SCH (03:10)
[2023-02-19] MEDS: ceFAZolin 1 GM ADVAN 1 GM in NS 0.9% 50 ML 50 ML IVPB SCH ×2 (05:27→14:57)
[2023-02-19 06:56] LABS: Hematocrit 26.4 % (35-45); Hemoglobin 9.3 g/dL (11.5-14.3); Mean Platelet Volume 7.6 fL (7.5-11.2); Platelet Count 102 10^3/uL (150-450)
[2023-02-19 06:59] LABS: Calcium 9.2 mg/dL (8.6-10.3); Creatinine, Serum 1.26 mg/dL (0.51-0.95); Potassium 4.6 mmol/L (3.5-5.0); eGFR CKD-EPI 42.9 (>60)
[2023-02-19] MEDS: Mometasone/Formoter 100/5 MDI INH SCH ×2 (08:35→19:47)
[2023-02-19] MEDS ORDERED: Enoxaparin 40 MG/0.4 ML SYR SUBCUT SCH (09:00)
[2023-02-19] MEDS: Cholecalciferol (VIT D3) 1,000 unit TAB PO SCH (09:49)
[2023-02-19] MEDS: Multivitamins/Minerals TAB PO SCH (09:54)
[2023-02-19] MEDS: Magnesium Hydroxide LIQ 30 ML UDC PO SCH ×2 (09:58→21:41)
[2023-02-19] MEDS: Isosorbide Mononit ER 60mg TAB PO SCH (12:08)
[2023-02-19] MEDS: Aspirin EC 81 mg TAB.EC (enteric coated) PO SCH (21:39)
[2023-02-20 06:35] VITALS: BP 132/66
[2023-02-20 06:57] LABS: ABS Eosinophils 0.1 10^3/uL (0.0-0.5); ABS Lymphocytes 0.8 10^3/uL (1.0-4.8); ABS Monocytes 0.7 10^3/uL (0.0-0.9); ABS Neutrophils 5.6 10^3/uL (1.5-7.6); ABS Nucleated RBC 0.01 10^3/ul; Eosinophil % 1.4 %; Hematocrit 27.1 % (35-45); Hemoglobin 9.4 g/dL (11.5-14.3); Lymphocyte % 11.3 %; Mean Corpuscular Hemoglobin 32.4 pg (27-33); Mean Corpuscular Hgb Conc 34.6 g/dL (31-36); Mean Corpuscular Volume 93.8 fL (80-97); Mean Platelet Volume 8.2 fL (7.5-11.2); Nucleated Red Blood Cells % 0.1 /100 WBC (0.0-0.4); Platelet Count 103 10^3/uL (150-450); Red Blood Count 2.88 10^6/uL (3.63-4.92); Red Cell Distribution Width 14.5 % (12-17); White Blood Count 7.2 10^3/uL (3.8-11.8)
[2023-02-20 07:09] LABS: Calcium 9.5 mg/dL (8.6-10.3); Creatinine, Serum 1.22 mg/dL (0.51-0.95); Potassium 4.4 mmol/L (3.5-5.0); eGFR CKD-EPI 44.6 (>60)
[2023-02-20] MEDS: Mometasone/Formoter 100/5 MDI INH SCH (07:36)
[2023-02-20] MEDS: Cholecalciferol (VIT D3) 1,000 unit TAB PO SCH (08:11)
[2023-02-20] MEDS: Multivitamins/Minerals TAB PO SCH (08:12)
[2023-02-20] MEDS: Isosorbide Mononit ER 60mg TAB PO SCH (08:12)
[2023-02-20] MEDS: Magnesium Hydroxide LIQ 30 ML UDC PO SCH (08:12)
[2023-02-20] MEDS ORDERED: Enoxaparin 30 MG/0.3 ML SYR SUBCUT SCH (09:00)
[2023-02-23] MEDS ORDERED: NF:Dulaglutide (NF) 0.75 MG/0.5 ML SYRINGE SUBCUT SCH (09:00)
== END 2023-02-20 08:15 | DRG 482 ==
LOC: ED 19:02 → EDHOLD 02-18 00:15 → SSU 02-18 16:22
PROVIDERS: ADMIT Hospitalist; ATTEND Hospitalist

== ENCOUNTER 2023-02-20 08:09 | Inpatient (IN) ==
[2023-02-20] MEDS ORDERED: Senna TAB 8.6 mg TAB PO PRN (11:12)
[2023-02-20] MEDS ORDERED: Magnesium Hydroxide LIQ 30 ML UDC PO PRN (11:12)
[2023-02-20] MEDS ORDERED: Dextrose 50% Syringe 50 ml 25 GM/50 ML SYRINGE IV PUSH PRN (12:26)
[2023-02-20] MEDS: Mometasone/Formoter 100/5 MDI INH SCH (20:11)
[2023-02-21] MEDS: Cholecalciferol (VIT D3) 1,000 unit TAB PO SCH (08:08)
[2023-02-21] MEDS: Isosorbide Mononit ER 60mg TAB PO SCH (08:09)
[2023-02-21] MEDS: Aspirin EC 81 mg TAB.EC (enteric coated) PO SCH (08:10)
[2023-02-21] MEDS: Enoxaparin 30 MG/0.3 ML SYR SUBCUT SCH (08:10)
[2023-02-21] MEDS: Mometasone/Formoter 100/5 MDI INH SCH ×2 (10:50→20:51)
[2023-02-22 06:27] LABS: ABS Eosinophils 0.3 10^3/uL (0.0-0.5); ABS Lymphocytes 0.9 10^3/uL (1.0-4.8); ABS Monocytes 0.6 10^3/uL (0.0-0.9); ABS Neutrophils 3.4 10^3/uL (1.5-7.6); Eosinophil % 5.2 %; Hemoglobin 8.5 g/dL (11.5-14.3); Lymphocyte % 17.2 %; Mean Corpuscular Hemoglobin 32.9 pg (27-33); Mean Corpuscular Hgb Conc 35.6 g/dL (31-36); Mean Corpuscular Volume 92.6 fL (80-97); Mean Platelet Volume 7.4 fL (7.5-11.2); Platelet Count 118 10^3/uL (150-450); Red Blood Count 2.59 10^6/uL (3.63-4.92); Red Cell Distribution Width 14.3 % (12-17); White Blood Count 5.2 10^3/uL (3.8-11.8)
[2023-02-22 06:43] LABS: Albumin 3.2 g/dL (3.2-5.2); Albumin/Globulin Ratio 1.4 (1-3); Calcium 9.3 mg/dL (8.6-10.3); Creatinine, Serum 1.33 mg/dL (0.51-0.95); Globulin 2.3 g/dL (2-4); Potassium 4.5 mmol/L (3.5-5.0); Total Bilirubin 0.6 mg/dL (0.2-1.0); Total Protein 5.5 g/dL (6.4-8.9); eGFR CKD-EPI 40.2 (>60)
[2023-02-22] MEDS: Cholecalciferol (VIT D3) 1,000 unit TAB PO SCH (10:56)
[2023-02-22] MEDS: Aspirin EC 81 mg TAB.EC (enteric coated) PO SCH (10:56)
[2023-02-22] MEDS: Isosorbide Mononit ER 60mg TAB PO SCH (10:56)
[2023-02-22] MEDS: Enoxaparin 30 MG/0.3 ML SYR SUBCUT SCH (10:57)
[2023-02-22] MEDS: Mometasone/Formoter 100/5 MDI INH SCH ×2 (11:02→20:24)
[2023-02-23 06:49] LABS: ABS Basophils 0.1 10^3/uL (0.0-0.1); ABS Eosinophils 0.3 10^3/uL (0.0-0.5); ABS Lymphocytes 0.9 10^3/uL (1.0-4.8); ABS Monocytes 0.5 10^3/uL (0.0-0.9); ABS Neutrophils 2.6 10^3/uL (1.5-7.6); Eosinophil % 6.7 %; Hematocrit 25.2 % (35-45); Hemoglobin 8.8 g/dL (11.5-14.3); Lymphocyte % 21.4 %; Mean Corpuscular Hemoglobin 32.4 pg (27-33); Mean Corpuscular Hgb Conc 34.9 g/dL (31-36); Mean Platelet Volume 7.3 fL (7.5-11.2); Platelet Count 144 10^3/uL (150-450); Red Blood Count 2.71 10^6/uL (3.63-4.92); Red Cell Distribution Width 14.5 % (12-17); White Blood Count 4.4 10^3/uL (3.8-11.8)
[2023-02-23 07:22] LABS: Calcium 9.6 mg/dL (8.6-10.3); Creatinine, Serum 1.24 mg/dL (0.51-0.95); Potassium 4.5 mmol/L (3.5-5.0); eGFR CKD-EPI 43.7 (>60)
[2023-02-23] MEDS: Isosorbide Mononit ER 60mg TAB PO SCH (07:57)
[2023-02-23] MEDS: Cholecalciferol (VIT D3) 1,000 unit TAB PO SCH (07:57)
[2023-02-23] MEDS: Aspirin EC 81 mg TAB.EC (enteric coated) PO SCH (07:58)
[2023-02-23] MEDS: Mometasone/Formoter 100/5 MDI INH SCH (08:00)
[2023-02-23] MEDS: Enoxaparin 30 MG/0.3 ML SYR SUBCUT SCH (08:00)
[2023-02-23] MEDS: Fluticasone-Salmeterol 100-50 DISKUS NF INH SCH ×2 (11:17→20:00)
[2023-02-23] MEDS: Dulaglutide (NF) 0.75 MG/0.5 ML SYRINGE SUBCUT SCH (17:46)
[2023-02-24] MEDS: Fluticasone-Salmeterol 100-50 DISKUS NF INH SCH ×2 (07:12→19:31)
[2023-02-24] MEDS: Isosorbide Mononit ER 60mg TAB PO SCH (07:26)
[2023-02-24] MEDS: Aspirin EC 81 mg TAB.EC (enteric coated) PO SCH (07:27)
[2023-02-24] MEDS: Cholecalciferol (VIT D3) 1,000 unit TAB PO SCH (07:27)
[2023-02-24] MEDS: Enoxaparin 30 MG/0.3 ML SYR SUBCUT SCH (07:40)
[2023-02-25] MEDS: Fluticasone-Salmeterol 100-50 DISKUS NF INH SCH ×2 (06:30→19:22)
[2023-02-25] MEDS: Aspirin EC 81 mg TAB.EC (enteric coated) PO SCH (07:44)
[2023-02-25] MEDS: Isosorbide Mononit ER 60mg TAB PO SCH (07:45)
[2023-02-25] MEDS: Cholecalciferol (VIT D3) 1,000 unit TAB PO SCH (07:45)
[2023-02-25] MEDS: Enoxaparin 30 MG/0.3 ML SYR SUBCUT SCH (08:08)
[2023-02-26] MEDS: Cholecalciferol (VIT D3) 1,000 unit TAB PO SCH (08:09)
[2023-02-26] MEDS: Aspirin EC 81 mg TAB.EC (enteric coated) PO SCH (08:09)
[2023-02-26] MEDS: Isosorbide Mononit ER 60mg TAB PO SCH (08:09)
[2023-02-26] MEDS: Fluticasone-Salmeterol 100-50 DISKUS NF INH SCH ×2 (08:12→19:13)
[2023-02-26] MEDS: Enoxaparin 30 MG/0.3 ML SYR SUBCUT SCH (08:13)
[2023-02-26] MEDS: CALMOSEPTINE TOPICAL SCH (20:59)
[2023-02-27] MEDS: Aspirin EC 81 mg TAB.EC (enteric coated) PO SCH (08:37)
[2023-02-27] MEDS: Fluticasone-Salmeterol 100-50 DISKUS NF INH SCH ×2 (08:37→18:59)
[2023-02-27] MEDS: Cholecalciferol (VIT D3) 1,000 unit TAB PO SCH (08:38)
[2023-02-27] MEDS: Isosorbide Mononit ER 60mg TAB PO SCH (08:38)
[2023-02-27] MEDS: Enoxaparin 30 MG/0.3 ML SYR SUBCUT SCH (08:39)
[2023-02-27] MEDS: CALMOSEPTINE TOPICAL SCH ×2 (09:58→21:07)
[2023-02-27] MEDS ORDERED: CYCLOBENZAPRINE 5 MG PO PRN (19:34)
[2023-02-28] MEDS: CALMOSEPTINE TOPICAL SCH ×2 (10:15→20:38)
[2023-02-28] MEDS: Fluticasone-Salmeterol 100-50 DISKUS NF INH SCH ×2 (10:16→20:53)
[2023-02-28] MEDS: Cholecalciferol (VIT D3) 1,000 unit TAB PO SCH (10:17)
[2023-02-28] MEDS: Isosorbide Mononit ER 60mg TAB PO SCH (10:17)
[2023-02-28] MEDS: Aspirin EC 81 mg TAB.EC (enteric coated) PO SCH (10:18)
[2023-02-28] MEDS: Enoxaparin 30 MG/0.3 ML SYR SUBCUT SCH ×2 (15:50→16:03)
[2023-03-01 07:46] LABS: ABS Basophils 0.1 10^3/uL (0.0-0.1); ABS Eosinophils 0.3 10^3/uL (0.0-0.5); ABS Lymphocytes 1.4 10^3/uL (1.0-4.8); ABS Monocytes 0.7 10^3/uL (0.0-0.9); ABS Neutrophils 3.7 10^3/uL (1.5-7.6); ABS Nucleated RBC 0.01 10^3/ul; Eosinophil % 4.3 %; Hematocrit 28.2 % (35-45); Hemoglobin 9.8 g/dL (11.5-14.3); Lymphocyte % 22.8 %; Mean Corpuscular Hemoglobin 32.7 pg (27-33); Mean Corpuscular Hgb Conc 34.7 g/dL (31-36); Mean Corpuscular Volume 94.2 fL (80-97); Mean Platelet Volume 6.8 fL (7.5-11.2); Nucleated Red Blood Cells % 0.1 %/100WBC (0.0-0.8); Platelet Count 260 10^3/uL (150-450); Red Cell Distribution Width 15.3 % (12-17); White Blood Count 6.1 10^3/uL (3.8-11.8)
[2023-03-01 08:13] LABS: Albumin 3.5 g/dL (3.2-5.2); Albumin/Globulin Ratio 1.3 (1-3); Calcium 9.8 mg/dL (8.6-10.3); Creatinine, Serum 1.34 mg/dL (0.51-0.95); Globulin 2.6 g/dL (2-4); Potassium 4.5 mmol/L (3.5-5.0); Total Bilirubin 0.9 mg/dL (0.2-1.0); Total Protein 6.1 g/dL (6.4-8.9); eGFR CKD-EPI 39.6 (>60)
[2023-03-01] MEDS: Fluticasone-Salmeterol 100-50 DISKUS NF INH SCH ×2 (08:29→19:19)
[2023-03-01] MEDS: Isosorbide Mononit ER 60mg TAB PO SCH (08:30)
[2023-03-01] MEDS: Aspirin EC 81 mg TAB.EC (enteric coated) PO SCH (08:30)
[2023-03-01] MEDS: Cholecalciferol (VIT D3) 1,000 unit TAB PO SCH (08:30)
[2023-03-01] MEDS: CALMOSEPTINE TOPICAL SCH ×2 (08:31→20:32)
[2023-03-01] MEDS: Enoxaparin 30 MG/0.3 ML SYR SUBCUT SCH (17:24)
[2023-03-02] MEDS: Fluticasone-Salmeterol 100-50 DISKUS NF INH SCH ×2 (08:31→16:58)
[2023-03-02] MEDS: Cholecalciferol (VIT D3) 1,000 unit TAB PO SCH (09:00)
[2023-03-02] MEDS: Isosorbide Mononit ER 60mg TAB PO SCH (09:00)
[2023-03-02] MEDS: Aspirin EC 81 mg TAB.EC (enteric coated) PO SCH (09:00)
[2023-03-02] MEDS: CALMOSEPTINE TOPICAL SCH ×2 (09:03→20:55)
[2023-03-02] MEDS: Enoxaparin 30 MG/0.3 ML SYR SUBCUT SCH (16:12)
[2023-03-02] MEDS: Dulaglutide (NF) 0.75 MG/0.5 ML SYRINGE SUBCUT SCH (16:51)
[2023-03-03] MEDS: Aspirin EC 81 mg TAB.EC (enteric coated) PO SCH (09:24)
[2023-03-03] MEDS: Isosorbide Mononit ER 60mg TAB PO SCH (09:24)
[2023-03-03] MEDS: Cholecalciferol (VIT D3) 1,000 unit TAB PO SCH (09:24)
[2023-03-03] MEDS: Fluticasone-Salmeterol 100-50 DISKUS NF INH SCH ×2 (09:26→19:40)
[2023-03-03] MEDS: CALMOSEPTINE TOPICAL SCH ×2 (12:01→21:03)
[2023-03-03] MEDS: Enoxaparin 30 MG/0.3 ML SYR SUBCUT SCH (16:36)
[2023-03-04] MEDS: Isosorbide Mononit ER 60mg TAB PO SCH (08:02)
[2023-03-04] MEDS: Aspirin EC 81 mg TAB.EC (enteric coated) PO SCH (08:02)
[2023-03-04] MEDS: Cholecalciferol (VIT D3) 1,000 unit TAB PO SCH (08:02)
[2023-03-04] MEDS: Fluticasone-Salmeterol 100-50 DISKUS NF INH SCH ×2 (08:04→20:47)
[2023-03-04] MEDS: CALMOSEPTINE TOPICAL SCH ×2 (08:04→20:51)
[2023-03-04] MEDS: Enoxaparin 30 MG/0.3 ML SYR SUBCUT SCH (16:09)
[2023-03-05 06:23] VITALS: BP 144/72
[2023-03-05] MEDS: Cholecalciferol (VIT D3) 1,000 unit TAB PO SCH (09:52)
[2023-03-05] MEDS: Isosorbide Mononit ER 60mg TAB PO SCH (09:52)
[2023-03-05] MEDS: Aspirin EC 81 mg TAB.EC (enteric coated) PO SCH (09:52)
[2023-03-05] MEDS: Fluticasone-Salmeterol 100-50 DISKUS NF INH SCH (09:53)
[2023-03-05] MEDS: CALMOSEPTINE TOPICAL SCH (09:54)
== END 2023-03-05 14:05 | disposition home or self-care (01) | DRG 561 ==
LOC: PMRU 09:03
PROVIDERS: ADMIT Physical Medicine & Rehabilitation; ATTEND Physical Medicine & Rehabilitation